=== PATIENT | female | born 1950 | race Hispanic/Latino ===

== ENCOUNTER 2017-11-19 14:57 | Outpatient (RCR) | payer MEDICARE ==
[~2017-11-19 14:57] MED LIST: ASPIRIN325 MG PO; FENOFIBRATE145 MG PO; FOLIC ACID1 MG PO; HYDROCHLOROTHIA25 MG PO; HYDROXYCHLOROQ200 MG PO; LEVOTHYROXINE112 MCG PO; LOSARTAN POTAS100 MG PO; METFORMIN HCL500 MG PO; NORCO 7.5-3251 EACH PO; OMEPRAZOLE40 MG PO; PREDNISONE5 MG PO; SULFASALAZINE500 MG PO
== END 2017-11-27 ==
LOC: PT 14:57
PROVIDERS: ATTEND Specialist
DX: Z96.651 Presence of right artificial knee joint (principal); S72.421D Displaced fracture of lateral condyle of right femur, subsequent encounter for closed fracture with routine healing; M47.816 Spondylosis without myelopathy or radiculopathy, lumbar region; M62.81 Muscle weakness (generalized)
CPT/HCPCS: 97110 ×6; 97139; 97162; G8978; G8979 ×2; G8980

== ENCOUNTER 2018-07-12 14:37 | Emergency (ER) | payer MEDICARE ==
[~2018-07-12] VITALS: Ht 167.6 cm; Wt 90.7 kg
[2018-07-12] MEDS ORDERED: ONDANSETRON HCL INJ 2 MG/ML VIAL IV STA (14:53)
[2018-07-12] MEDS ORDERED: MORPHINE SULFATE 2 MG/ML SYR IV STA (14:53)
[2018-07-12] MEDS ORDERED: SODIUM CHLORIDE 0.9% 1000ML 1,000 ML IV SCH (15:00)
[2018-07-12 15:04] LABS: BASOPHILS % 0.3 % (0.0-1.0); EOSINOPHILS # (AUTO) 0.1 (0.0-0.4); HEMATOCRIT 44.9 % (34.2-44.1); HEMOGLOBIN 14.9 g/dL (12.0-16.0); LYMPHOCYTES # (AUTO) 0.6 (1.0-3.2); LYMPHOCYTES % 4.6 % (18.0-39.1); MEAN CORPUSCULAR HEMOGLOBIN 32.2 pg (28-32); MEAN CORPUSCULAR HGB CONC 33.2 g/dL (31-35); MONOCYTES # (AUTO) 0.7 (0.2-0.8); MONOCYTES % 5.2 % (4.4-11.3); NEUTROPHILS % 88.5 % (38.7-80.0); PLATELET COUNT 195 x10e3/uL (140-360); RED BLOOD COUNT 4.63 x10e6/uL (3.6-5.1); RED CELL DISTRIBUTION WIDTH 14.3 % (11.7-14.4)
[2018-07-12 15:21] LABS: ALBUMIN 3.4 g/dL (3.5-5.0); ALBUMIN/GLOBULIN RATIO 0.9 (0.8-2.0); ANION GAP 19.1 mmol/L (8-16); CALCIUM 9.5 mg/dL (8.4-10.2); CREATININE, SERUM 1.31 mg/dL (0.57-1.11); POTASSIUM 3.1 mmol/L (3.5-5.1)
[2018-07-12] MEDS ORDERED: ACETAMINOPHEN 1000 MG/100 ML IV ONE (15:30)
[2018-07-12 15:41] LABS: BILIRUBIN,URINE NEGATIVE (NEGATIVE); CLARITY,URINE HAZY (CLEAR); COLOR,URINE YELLOW (YELLOW); KETONES,URINE TRACE (NEGATIVE); LEUKOCYTE ESTERASE ,URINE 1+ (NEGATIVE); NITRITE,URINE NEGATIVE (NEGATIVE); PROTEIN,URINE DIPSTICK NEGATIVE (NEGATIVE); URINE UROBILINOGEN 0.2 mg/dL (0.2 - 1)
[2018-07-12 16:00] LABS: EPITHELIAL CELLS,URINE MANY /LPF
[2018-07-12 16:02] LABS: BACTERIA,URINE MANY /HPF; RBC,URINE 0-5 /HPF (0-5); TRANSITIONAL EPI CELLS,URINE MANY; WBC,URINE (MAN) >50 /HPF (0-5)
[2018-07-12] MEDS ORDERED: POTASSIUM CHLORIDE 20 MEQ TAB CR PO STA (16:13)
--- NOTE | 2018-07-12 17:15 | Diagnostic Imaging Report ---
EXAM: CT Abdomen and Pelvis WITHOUT contrast INDICATION: \S\lower abd pain \[id number] \S\1600 COMPARISON: None. TECHNIQUE: Abdomen and pelvis were scanned utilizing a multidetector helical scanner from the lung base to the pubic symphysis without administration of IV contrast. Absence of intravenous contrast decreases sensitivity for detection of focal lesions and vascular pathology. Coronal and sagittal reformations were obtained. Routine protocol was performed. IV CONTRAST: None ORAL CONTRAST: Gastrografin COMPLICATIONS: None RADIATION DOSE: Total DLP: 878.02 mGy*cm Estimated effective dose: (DLP x 0.015 x size factor) mSv CTDIvol has been reviewed. It is below the limits set by the Radiation Protocol Committee (RPC). FINDINGS: LINES and TUBES: None. LOWER THORAX: Dependent atelectasis. Increased peripheral lung markings, suggestive of fibrotic changes. HEPATOBILIARY: Diffuse hepatic steatosis, otherwise unenhanced liver is unremarkable. No biliary ductal dilation. GALLBLADDER: Surgically absent. SPLEEN: No splenomegaly. PANCREAS: Atrophic. No focal masses or ductal dilatation. ADRENALS: No adrenal nodules KIDNEYS/URETERS: No hydronephrosis. Limited for evaluation of renal parenchyma without intravenous contrast. No stones. GI TRACT: No abnormal distention, wall thickening, or evidence of bowel obstruction. There are diverticula within the colon without evidence of diverticulitis. Appendix is normal. PELVIC ORGANS/BLADDER: Unremarkable. LYMPH NODES: No lymphadenopathy. VESSELS: There is mild atherosclerotic disease in the aorta and major arterial branches. PERITONEUM / RETROPERITONEUM: No free air or fluid. BONES: Unremarkable. SOFT TISSUES: Unremarkable. IMPRESSION: 1. No definite evidence of acute inflammatory process in the abdomen/pelvis, considering limitations of unenhanced study. 2. Clonic diverticulosis without evidence of diverticulitis. 3. Diffuse hepatic steatosis. Signed by: Dr. Emeka Cisneros MD on 07/12/2018 5:12 PM
--- OUTSIDE RECORDS SUMMARY | 2018-07-15 13:43 | XMS REPORT | Summary of Care ---
Author Organization Unknown Address Unknown Phone Unavailable Encounter [facility](IZZY) [id number] Date(s): 03/26/14 - 04/24/14 [facility] [address] Discharge Disposition: Home Physician Attending: Soni Mehta MD Reason for Visit INF Vital Signs Most recent to 1 oldest [Reference Range]: Height 165.1 cm (03/26/14 8:20 AM) Weight 72.7 kg (03/26/14 8:20 AM) Body Mass Index 26.67 m2 (03/26/14 8:20 AM) Problem List Condition Effective Dates Status Health Status Informant Arthritis(Confirmed) Resolved Diverticulitis(Confi Resolved rmed) DM (diabetes Active mellitus)(Confirmed) DM (diabetes Resolved mellitus)(Confirmed) Escherichia Active coli(Confirmed)1 H/O: HTN Resolved (hypertension)(Confi rmed) H/O: Resolved hypothyroidism(Confi rmed) RA (rheumatoid Active arthritis)(Confirmed ) 1Problem added by Discern Expert. Allergies, Adverse Reactions, Alerts Substance Reaction Severity Status NKDA Active Medications INVanz + Sodium Chloride 0.9% IV 100 mL 1 gm, Route: IVPB, [id number], Start date: 03/26/14 10:00:00, Duration: 14 day, Sto p date: 04/08/14 10:00:00 Notes: (Same as: INVanz) Refrigerate. NOT COMPATIBLE WITH D5W. Stable in refri gerator for 24 hours. Start Date: 03/26/14 Stop Date: 04/08/14 Status: Pending Complete Medications Administered During Your Visit No data available for this section Immunizations Vaccine Date Refusal Reason pneumococcal 23-valent vaccine 03/17/14 Social History Social History Type Response Smoking Status Current every day smoker, Type: Cigarettes, Previous treatment: None, Ready to change: No, Concerns about tobacco use in household: No, Exposure to Tobacco Smoke Lives with someone who smokes, Cigarette Smoking Last 365 Days Yes, Reg Smoking Cessation Counseling No1 1Quit in January 2014
--- OUTSIDE RECORDS SUMMARY | 2018-07-15 13:43 | XMS REPORT | Summary of Care ---
Author Author [facility] Outpatient Imaging [facility] [place] Address Unknown Phone Unavailable Encounter [facility](FIN) [id number] Date(s): 07/10/17 - 07/10/17 [facility] Outpatient Imaging [facility] [address] [facility], [address] [place] [phone] Discharge Disposition: Home or Self Care Attending Physician: Chen Yuan MD Vital Signs No data available for this section Problem List Condition Effective Dates Status Health Status Informant Arthritis(Confirmed) Resolved Diverticulitis(Confi Resolved rmed) DM (diabetes Active mellitus)(Confirmed) DM (diabetes Resolved mellitus)(Confirmed) Escherichia Active coli(Confirmed)1 H/O: HTN Resolved (hypertension)(Confi rmed) H/O: Resolved hypothyroidism(Confi rmed) Pulmonary 09/19/14 Active embolism(Confirmed) RA (rheumatoid Active arthritis)(Confirmed ) 1Problem added by Discern Expert. Allergies, Adverse Reactions, Alerts Substance Reaction Severity Status penicillins Active Medications No data available for this section Results No data available for this section Immunizations Given and Recorded Vaccine Date Status Refusal Reason pneumococcal 23-valent vaccine 03/17/14 Given Procedures Procedure Date Related Diagnosis Body Site Cholecystectomy Social History Social History Type Response Smoking Status Former smoker; Type: Cigarettes; Started at age: 29.0; Previous treatment: None; Ready to change: No; Concerns about tobacco use in household: No; Exposure to Tobacco Smoke None; Cigarette Smoking Last 365 Days Yes; Reg Smoking Cessation Counseling No1, 2 1quit smoking 6 months ago 2Quit in January 2014 Assessment and Plan No data available for this section
--- OUTSIDE RECORDS SUMMARY | 2018-07-15 13:43 | XMS REPORT | Summary of Care ---
Author Organization Unknown Address Unknown Phone Unavailable Encounter [facility](IZZY) [id number] Date(s): 03/15/14 - 03/25/14 [facility] [address] Discharge Disposition: Home Physician Attending: Will Carver DO Physician Admitting: Will Carver DO Reason for Visit INTRA ABDOMINAL PAIN INFECTION Vital Signs 1 2 3 Most recent to oldest [Reference Range]: 165.1 cm (03/16/14 8:32 PM) 165.1 cm (03/15/14 3:11 PM) Height 97.9 DegF (03/25/14 12:03 PM) 98.4 DegF (03/25/14 7:53 AM) 98.7 DegF (03/25/14 4:23 AM) Temperature Oral [96.4-99.1 DegF] 121 mmHg (03/25/14 12:03 PM) 131 mmHg (03/25/14 7:53 AM) 133 mmHg (03/25/14 4:23 AM) Systolic Blood Pressure [90-140 mmHg] 70 mmHg (03/25/14 12:03 PM) 89 mmHg (03/25/14 7:53 AM) 72 mmHg (03/25/14 4:23 AM) Diastolic Blood Pressure [60-90 mmHg] 14 BRMIN (03/25/14 12:03 PM) 14 BRMIN (03/25/14 7:53 AM) 14 BRMIN (03/25/14 4:23 AM) Respiratory Rate [14-20 BRMIN] 89 bpm (03/25/14 12:03 PM) 86 bpm (03/25/14 7:53 AM) 96 bpm (03/25/14 4:23 AM) Peripheral Pulse Rate [60-100 bpm] 72.727 kg (03/16/14 8:32 PM) 72.727 kg (03/15/14 3:11 PM) Weight 26.68 m2 (03/16/14 8:32 PM) 26.68 m2 (03/15/14 3:11 PM) Body Mass Index Problem List Condition Effective Dates Status Health Status Informant Arthritis(Confirmed) Resolved Diverticulitis(Confi Resolved rmed) DM (diabetes Active mellitus)(Confirmed) DM (diabetes Resolved mellitus)(Confirmed) Escherichia Active coli(Confirmed)1 H/O: HTN Resolved (hypertension)(Confi rmed) H/O: Resolved hypothyroidism(Confi rmed) RA (rheumatoid Active arthritis)(Confirmed ) 1Problem added by Discern Expert. Allergies, Adverse Reactions, Alerts Substance Reaction Severity Status NKDA Active Medications 1/2NS + KCL 20mEq/L 1000ml (Premix) 1,000 mL 1,000 mL, Rate: 125 ml/hr, Infuse over: 8 hr, Route: IV, Dosing Weight 72.727 kg , Total Volume: 1,000, Start date: 03/16/14 4:14:00, Duration: 30 day, Stop date : 04/15/14 4:13:00 Start Date: 03/16/14 Stop Date: 03/24/14 Status: Discontinued acetaminophen 650 mg, 20.3 mL, Route: PO, Drug form: LIQ, Q4H, Dosing Weight 72.727, kg, PRN P ain 1-3/Temp > 100.4 F, Start date: 03/16/14 4:14:00, Duration: 30 day, Stop date: 04/15/14 4:13:00 Notes: Max fmvemmqvthkly=7719aa/day (4 gm/day). (Same as: Tylenol) Start Date: 03/16/14 Stop Date: 03/25/14 Status: Discontinued ampicillin 1 gm, 2 cap, Route: PO, Drug form: CAP, TID, Dosing Weight 72.727, kg, Start clemente e: 03/25/14 17:00:00, Duration: 30 day, Stop date: 04/24/14 13:00:00 Notes: On empty stomach. Take 1 hour before or 2 hours after meal(Same as: Mason fagan) Start Date: 03/25/14 Stop Date: 03/25/14 Status: Discontinued ampicillin 500 mg oral capsule =1,000 mg, PO, TID, # 42 caplet, 0 Refill(s) Start Date: 03/25/14 Status: Ordered Cipro 500 mg, 1 tab, Route: PO, Drug form: TAB, [id number], Dosing Weight 72.727, kg, Sta rt date: 03/16/14 17:00:00, Duration: 30 day, Stop date: 04/15/14 5:00:00 Notes: May interfere w/enteral feedings - Take 1 hr before or 2 hrs after anta cids, dairy pdt & minerals. On empty stomach. Start Date: 03/16/14 Stop Date: 03/20/14 Status: Discontinued enalapril 10 mg, 1 tab, Route: PO, Drug form: TAB, Daily, Dosing Weight 72.727, kg, Start date: 03/17/14 9:00:00, Duration: 30 day, Stop date: 04/15/14 9:00:00 Notes: (Same as: Vasotec) Start Date: 03/17/14 Stop Date: 03/25/14 Status: Discontinued enoxaparin 40 mg, 0.4 mL, Route: SUB-Q, Drug form: INJ, [id number], Dosing Weight 72.727, kg, Start date: 03/16/14 17:00:00, Duration: 30 day, Stop date: 04/14/14 17:00:00 Notes: (Same as: Lovenox) Start Date: 03/16/14 Stop Date: 03/25/14 Status: Discontinued ertapenem 1 g injection =1 gm, IV, Q24H, # 14 bag, 0 Refill(s) Start Date: 03/25/14 Status: Ordered Flagyl 500 mg, 100 mL, Route: IVPB, Drug form: INJ, [id number], Dosing Weight 72.727, kg, Priority: STAT, Start date: 03/16/14 4:14:00, Duration: 30 day, Stop date: 04/14 15:00:00 Notes: (Same as: Flagyl) Avoid alcohol. Start Date: 03/16/14 Stop Date: 03/16/14 Status: Discontinued Flagyl 500 mg, Route: IVPB, ONCE, Dosing Weight 72.727, kg, Priority: STAT, Start date: 03/16/14 2:03:00, Stop date: 03/16/14 2:03:00 Start Date: 03/16/14 Stop Date: 03/16/14 Status: Completed Flagyl 500 mg, 1 tab, Route: PO, Drug form: TAB, [id number], Dosing Weight 72.727, kg, Star t date: 03/16/14 17:00:00, Duration: 30 day, Stop date: 04/15/14 9:00:00 Notes: (Same as: Flagyl) Take with food/ avoid alcohol Start Date: 03/16/14 Stop Date: 03/20/14 Status: Discontinued folic acid 1 mg, 1 tab, Route: PO, Drug form: TAB, Daily, Dosing Weight 72.727, kg, Start d ate: 03/17/14 9:00:00, Duration: 30 day, Stop date: 04/15/14 9:00:00 Notes: (Same as: Folvite) Start Date: 03/17/14 Stop Date: 03/25/14 Status: Discontinued Humalog Kwik Pen 32 unit, Route: SUB-Q, BID, Dosing Weight 72.727, kg, Start date: 03/16/14 17:00 :00, Duration: 30 day, Stop date: 04/15/14 9:00:00 Start Date: 03/16/14 Stop Date: 03/16/14 Status: Deleted hydrochlorothiazide 25 mg, 1 tab, Route: PO, Drug form: TAB, Daily, Dosing Weight 72.727, kg, Start date: 03/17/14 9:00:00, Duration: 30 day, Stop date: 04/15/14 9:00:00 Notes: (Same as: Hydrodiuril) With food. Start Date: 03/17/14 Stop Date: 03/25/14 Status: Discontinued isoniazid 300 mg, 1 tab, Route: PO, Drug form: TAB, Daily, Dosing Weight 72.727, kg, Start date: 03/17/14 9:00:00, Duration: 30 day, Stop date: 04/15/14 9:00:00 Notes: (Same as:INH 1 hr prior to meal. Start Date: 03/17/14 Stop Date: 03/25/14 Status: Discontinued isoniazid 100 mg oral tablet 300 mg=3 tab, PO, Daily, # 20 tab, 0 Refill(s) Start Date: 03/16/14 Status: Ordered Lantus 70 unit, Route: SUB-Q, Drug form: SOLN, Bedtime, Dosing Weight 72.727, kg, Start date: 03/16/14 21:00:00, Duration: 30 day, Stop date: 04/14/14 21:00:00 Start Date: 03/16/14 Stop Date: 03/16/14 Status: Deleted Lantus 100 units/mL =90 unit, SUB-Q, Bedtime, # 10 ml, 0 Refill(s) Start Date: 03/16/14 Status: Ordered Levaquin 500 mg, 100 mL, Route: IVPB, Drug form: INJ, [id number], Dosing Weight 72.727, kg, Start date: 03/17/14 5:00:00, Duration: 30 day, Stop date: 04/15/14 5:00:00 Notes: (Same as:Levaquin) Start Date: 03/17/14 Stop Date: 03/20/14 Status: Discontinued Levaquin 500 mg, 100 mL, Route: IV, Drug form: INJ, ONCE, Dosing Weight 72.727, kg, Start date: 03/16/14 2:03:00, Stop date: 03/16/14 2:03:00 Notes: (Same as:Levaquin) Start Date: 03/16/14 Stop Date: 03/16/14 Status: Completed Levemir FlexPen 70 unit, 0.7 mL, Route: SUB-Q, Drug form: INJ, Bedtime, Start date: 03/16/14 21: 00:00, Duration: 30 day, Stop date: 04/14/14 21:00:00 Notes: Same as Levemir "single patient use only" Start Date: 03/16/14 Stop Date: 03/25/14 Status: Discontinued levothyroxine 100 microgram, 1 tab, Route: PO, Drug form: TAB, [id number], Dosing Weight 72.727, k g, Start date: 03/17/14 6:30:00, Duration: 30 day, Stop date: 04/15/14 6:30:00 Notes: Take 1 hour before or 2 hours after meal; Enteral feeds may interefere wi th the absorption of this medication. (Same as:Levothroid, Synthroid) Start Date: 03/17/14 Stop Date: 03/25/14 Status: Discontinued losartan 25 mg, 1 tab, Route: PO, Drug form: TAB, Daily, Dosing Weight 72.727, kg, Start date: 03/17/14 9:00:00, Duration: 30 day, Stop date: 04/15/14 9:00:00 Notes: (Same as: Cozaar) Start Date: 03/17/14 Stop Date: 03/25/14 Status: Discontinued meropenem + Sodium Chloride 0.9% IV 100 mL 500 mg, Route: IVPB, [id number], Dosing Weight 72.727, kg, CrCL >=50ml/min, Extended infusion, infuse over 3 hours, Start date: 03/20/14 19:00:00, Duration: 30 day, Stop date: 04/19/14 13:00:00 Notes: Same as Merrem.. Start Date: 03/20/14 Stop Date: 03/25/14 Status: Discontinued methotrexate 20 mg, 8 tab, Route: PO, Drug form: TAB, QSun, Dosing Weight 72.727, kg, Start d ate: 03/21/14 9:00:00, Duration: 30 day, Stop date: 04/18/14 9:00:00 Notes: (Same as:Methotrexate Sodium)Chemotherapy agent/Handle with caution Start Date: 03/21/14 Stop Date: 03/25/14 Status: Discontinued morphine Sulfate 4 mg, 2 mL, Route: IVP, Drug form: INJ, Q4H, Dosing Weight 72.727, kg, PRN Pain Score 4-6, Start date: 03/16/14 4:14:00, Stop date: 04/15/14 4:13:00 Notes: (Same as:MORPhine Sulfate) Start Date: 03/16/14 Stop Date: 03/25/14 Status: Discontinued morphine Sulfate 4 mg, 2 mL, Route: IVP, Drug form: INJ, ONCE, Dosing Weight 72.727, kg, Priority : STAT, Start date: 03/15/14 23:32:00, Stop date: 03/15/14 23:32:00 Notes: (Same as:MORPhine Sulfate) Start Date: 03/15/14 Stop Date: 03/16/14 Status: Completed Coalgood 5/325 oral tablet 1 tab, Route: PO, Drug Form: TAB, Dosing Weight 72.727, kg, Q6H, PRN Pain Score 6-10, Start date: 03/16/14 16:36:00, Duration: 30 day, Stop date: 04/15/14 16:35 :00 Notes: (Same as: Coalgood 325/5) Do not exceed 4gm/day of acetaminophen. Start Date: 03/16/14 Stop Date: 03/25/14 Status: Discontinued Coalgood 5/325 oral tablet 1 tab, PO, Q6H, Pain Score 6-10, 0 Refill(s) Start Date: 03/16/14 Status: Ordered NovoLOG FlexPen 32 unit, 0.32 mL, Route: SUB-Q, Drug form: SOLN, BID, Start date: 03/16/14 17:00 :00, Duration: 30 day, Stop date: 04/15/14 9:00:00 Notes: Roll in palms of hands gently; Do not shake vigorously. (Same as: Yesika G)"single patient use only" Stable for 28 days at room temperature.Expires in _ ____ days from Date Start Date: 03/16/14 Stop Date: 03/25/14 Status: Discontinued omeprazole 40 mg, Route: PO, Drug form: DRC, BID, Dosing Weight 72.727, kg, Start date: 17:00:00, Duration: 30 day, Stop date: 04/15/14 9:00:00 Start Date: 03/16/14 Stop Date: 03/16/14 Status: Deleted ondansetron 4 mg, 2 mL, Route: IVP, Drug form: INJ, Q8H, Dosing Weight 72.727, kg, PRN Nause a & Vomiting, Start date: 03/16/14 4:14:00, Duration: 30 day, Stop date: 04/15/14 4:13:00 Notes: (Same as: Zofran) Start Date: 03/16/14 Stop Date: 03/25/14 Status: Discontinued pneumococcal 23-valent vaccine 0.5 ml, Route: IM, Drug Form: INJ, Daily, Start date: 03/17/14 9:00:00, Duration : 1 doses or times, Stop date: 03/17/14 9:00:00 Notes: (Same as: Pneumovax 23) Refrigerate Start Date: 03/17/14 Stop Date: 03/17/14 Status: Completed Protonix 40 mg, 1 tab, Route: PO, Drug form: ECTAB, BID, Start date: 03/16/14 17:00:00, D uration: 30 day, Stop date: 04/15/14 9:00:00 Notes: Tablet should not be chewed or crushed.(Same as: Protonix) Start Date: 03/16/14 Stop Date: 03/25/14 Status: Discontinued Saline Flush 0.9% 5 ml, Route: IVP, Drug Form: INJ, Dosing Weight 72.727, kg, PRN, PRN Line Flush, Start date: 03/16/14 4:14:00, Duration: 30 day, Stop date: 04/15/14 4:13:00 Notes: (Same as: BD Posiflush) Start Date: 03/16/14 Stop Date: 03/25/14 Status: Discontinued Sodium Chloride 0.9% (Bolus) IV - - 1,000 mL, 1,000 ml/hr, Infuse Over: 1 hr, Route: IV, 1,000, Drug form: INJ, ONCE , Priority: STAT, Dosing Weight 72.727 kg, Start date: 03/15/14 23:33:00, Durati on: 1 doses or times, Stop date: 03/15/14 23:33:00 Start Date: 03/15/14 Stop Date: 03/16/14 Status: Completed tramadol 50 mg oral tablet 50 mg, 1 tab, Route: PO, Drug form: TAB, Q8H, Dosing Weight 72.727, kg, PRN Pain Score 1-5, Start date: 03/16/14 16:38:00, Duration: 30 day, Stop date: 04/15/14 16:37:00 Notes: Not to exceed 400mg/day. (Same As: Ultram) Start Date: 03/16/14 Stop Date: 03/25/14 Status: Discontinued TriCor 145 mg, 1 tab, Route: PO, Drug form: TAB, Daily, Dosing Weight 72.727, kg, Start date: 03/17/14 9:00:00, Duration: 30 day, Stop date: 04/15/14 9:00:00 Notes: (Same as: Tricor) Start Date: 03/17/14 Stop Date: 03/25/14 Status: Discontinued Tylenol 1 gm, 100 mL, Route: IV, Drug form: INJ, PRN, Dosing Weight 72.727, kg, PRN Pain , Start date: 03/19/14 9:21:00, Duration: 1 day, Stop date: 03/20/14 9:20:00 Notes: Infuse over 15 minutes Do not exceed 4gm/day of acetaminophen Start Date: 03/19/14 Stop Date: 03/20/14 Status: Completed vancomycin + Sodium Chloride 0.9% IV 150 mL 750 mg, Route: IVPB, [id number], Dosing Weight 72.727, kg, Start date: 03/24/14 16: 00:00, Duration: 10 day, Stop date: 04/03/14 4:00:00 Notes: (Same As: Vancocin) Start Date: 03/24/14 Stop Date: 03/25/14 Status: Discontinued Vitamin B6 25 mg, 0.5 tab, Route: PO, Drug form: TAB, Daily, Dosing Weight 72.727, kg, Star t date: 03/17/14 9:00:00, Duration: 30 day, Stop date: 04/15/14 9:00:00 Notes: (Same as: Vitamin B6) Start Date: 03/17/14 Stop Date: 03/25/14 Status: Discontinued Zofran 4 mg, 2 mL, Route: IVP, Drug form: INJ, ONCE, Dosing Weight 72.727, kg, Priority : STAT, Start date: 03/15/14 23:32:00, Stop date: 03/15/14 23:32:00 Notes: (Same as: Zofran) Start Date: 03/15/14 Stop Date: 03/16/14 Status: Completed Results ELECTROLYTES 1 2 3 Most recent to oldest [Reference Range]: 141 mEq/L (03/24/14 4:00 AM) 140 mEq/L (03/23/14 5:11 AM) 139 mEq/L (03/21/14 6:42 AM) Sodium Lvl [135-145 mEq/L] 4.0 mEq/L (03/24/14 4:00 AM) 3.6 mEq/L (03/23/14 5:11 AM) 3.9 mEq/L (03/21/14 6:42 AM) Potassium Lvl [3.5-5.1 mEq/L] 109 mEq/L (03/24/14 4:00 AM) 107 mEq/L (03/23/14 5:11 AM) 106 mEq/L (03/21/14 6:42 AM) Chloride Lvl [95-109 mEq/L] 26 mEq/L (03/24/14 4:00 AM) 26 mEq/L (03/23/14 5:11 AM) 22 mEq/L *LOW* (03/21/14 6:42 AM) CO2 [24-32 mEq/L] 10.0 mEq/L (03/24/14 4:00 AM) 10.6 mEq/L (03/23/14 5:11 AM) 14.9 mEq/L (03/21/14 6:42 AM) AGAP [10.0-20.0 mEq/L] CHEM PANEL 1 2 3 Most recent to oldest [Reference Range]: 0.6 mg/dL (03/24/14 4:00 AM) 0.8 mg/dL (03/23/14 5:11 AM) 0.8 mg/dL (03/21/14 6:42 AM) Creatinine Lvl [0.5-1.4 mg/dL] 97 mL/min/1.73m2 1 *NA* (03/24/14 4:00 AM) 78 mL/min/1.73m2 2 *NA* (03/23/14 5:11 AM) 78 mL/min/1.73m2 3 *NA* (03/21/14 6:42 AM) eGFR 8 mg/dL (03/24/14 4:00 AM) 8 mg/dL (03/23/14 5:11 AM) 5 mg/dL *LOW* (03/21/14 6:42 AM) BUN [7-22 mg/dL] 6 (03/21/14 6:42 AM) 10 (03/15/14 11:55 PM) B/C Ratio [6-25] 177 mg/dL 4 *HI* (03/24/14 4:00 AM) 166 mg/dL 5 *HI* (03/23/14 5:11 AM) 174 mg/dL 6 *HI* (03/21/14 6:42 AM) Glucose Lvl [70-99 mg/dL] 6.2 g/dL *LOW* (03/21/14 6:42 AM) 7.4 g/dL (03/15/14 11:55 PM) Total Protein [6.4-8.4 g/dL] 2.0 g/dL *LOW* (03/21/14 6:42 AM) 2.5 g/dL *LOW* (03/15/14 11:55 PM) Albumin Lvl [3.5-5.0 g/dL] 4.2 g/dL *HI* (03/21/14 6:42 AM) 4.9 g/dL *HI* (03/15/14 11:55 PM) Globulin [2.0-4.0 g/dL] 0.5 *LOW* (03/21/14 6:42 AM) 0.5 *LOW* (03/15/14 11:55 PM) A/G Ratio [0.7-1.6] 8.0 mg/dL *LOW* (03/24/14 4:00 AM) 8.2 mg/dL *LOW* (03/23/14 5:11 AM) 8.4 mg/dL *LOW* (03/21/14 6:42 AM) Calcium Lvl [8.5-10.5 mg/dL] 1.8 mg/dL *LOW* (03/17/14 4:03 AM) Phosphorus [2.5-4.5 mg/dL] 1.5 mg/dL *LOW* (03/17/14 4:03 AM) 1.4 mg/dL *LOW* (03/15/14 11:55 PM) Magnesium Lvl [1.8-2.4 mg/dL] 9 unit/L (03/21/14 6:42 AM) 15 unit/L (03/15/14 11:55 PM) ALT [0-65 unit/L] 13 unit/L (03/21/14 6:42 AM) 10 unit/L (03/15/14 11:55 PM) AST [0-37 unit/L] 70 unit/L (03/21/14 6:42 AM) 72 unit/L (03/15/14 11:55 PM) Alk Phos [39-136 unit/L] 0.4 mg/dL (03/21/14 6:42 AM) 0.4 mg/dL (03/15/14 11:55 PM) Bili Total [0.2-1.3 mg/dL] 23 unit/L *LOW* (03/15/14 11:55 PM) Amylase Lvl [25-115 unit/L] 156 unit/L (03/15/14 11:55 PM) Lipase Lvl [73-393 unit/L] 1Result Comment: The eGFR is calculated using the CKD-EPI formula. In most young, healthy individuals the eGFR will be >90 mL/min/1.73m2. The eGFR declines with age. An eGFR of 60-89 may be normal in some populations, particularly the elderly, for whom the CKD-EPI formula has not been extensively validated. Use of the eGFR is not recommended in the following populations: Individuals with unstable creatinine concentrations, including patients and those with serious co-morbid conditions. Patients with extremes in muscle mass or diet. The data above are obtained from the National Kidney Disease Education Program ( NKDEP) which additionally recommends that when the eGFR is used in patients with extremes of body mass index for purposes of drug dosing, the eGFR should be mul tiplied by the estimated BMI. 2Result Comment: The eGFR is calculated using the CKD-EPI formula. In most young, healthy individuals the eGFR will be >90 mL/min/1.73m2. The eGFR declines with age. An eGFR of 60-89 may be normal in some populations, particularly the elderly, for whom the CKD-EPI formula has not been extensively validated. Use of the eGFR is not recommended in the following populations: Individuals with unstable creatinine concentrations, including patients and those with serious co-morbid conditions. Patients with extremes in muscle mass or diet. The data above are obtained from the National Kidney Disease Education Program ( NKDEP) which additionally recommends that when the eGFR is used in patients with extremes of body mass index for purposes of drug dosing, the eGFR should be mul tiplied by the estimated BMI. 3Result Comment: The eGFR is calculated using the CKD-EPI formula. In most young, healthy individuals the eGFR will be >90 mL/min/1.73m2. The eGFR declines with age. An eGFR of 60-89 may be normal in some populations, particularly the elderly, for whom the CKD-EPI formula has not been extensively validated. Use of the eGFR is not recommended in the following populations: Individuals with unstable creatinine concentrations, including patients and those with serious co-morbid conditions. Patients with extremes in muscle mass or diet. The data above are obtained from the National Kidney Disease Education Program ( NKDEP) which additionally recommends that when the eGFR is used in patients with extremes of body mass index for purposes of drug dosing, the eGFR should be mul tiplied by the estimated BMI. 4Interpretive Data: Adult reference range values reflect the clinical guidelines of the [place] [employer]. 5Interpretive Data: Adult reference range values reflect the clinical guidelines of the [place] [employer]. 6Interpretive Data: Adult reference range values reflect the clinical guidelines of the [place] [employer]. CARDIAC ENZYMES 1 2 3 Most recent to oldest [Reference Range]: 25 unit/L (03/15/14 11:55 PM) Total CK [12-191 unit/L] 0.7 ng/mL (03/15/14 11:55 PM) CK MB [0.5-3.6 ng/mL] 2.8 *HI* (03/15/14 11:55 PM) CK MB Index [0.0-2.5] <0.02 ng/mL (03/15/14 11:55 PM) Troponin-I [0.00-0.40 ng/mL] URINE AND STOOL 1 2 3 Most recent to oldest [Reference Range]: Clear (03/15/14 12:51 AM) UA Turbidity [Clear] Yellow *NA* (03/15/14 12:51 AM) UA Color [Yellow] 6.0 (03/15/14 12:51 AM) UA pH [5.0-8.0] 1.025 (03/15/14 12:51 AM) UA Spec Grav [<=1.030] >=1000 mg/dL *ABN* (03/15/14 12:51 AM) UA Glucose [Negative mg/dL] Negative (03/15/14 12:51 AM) UA Blood [Negative] Negative *NA* (03/15/14 12:51 AM) UA Ketones [Negative] Negative (03/15/14 12:51 AM) UA Protein [Negative] 0.2 EU/dL (03/15/14 12:51 AM) UA Urobilinogen [0.1-1.0 EU/dL] Small *ABN* (03/15/14 12:51 AM) UA Bili [Negative] Negative (03/15/14 12:51 AM) UA Leuk Est [Negative] Negative (03/15/14 12:51 AM) UA Nitrite [Negative] 12 /HPF *HI* (03/15/14 12:51 AM) UA WBC [0-5 /HPF] 5 /HPF *HI* (03/15/14 12:51 AM) UA RBC [0-2 /HPF] Occasional /HPF *NA* (03/15/14 12:51 AM) UA Bacteria [None Seen /HPF] Many /LPF *ABN* (03/15/14 12:51 AM) UA Sq Epi [Few /LPF] 12 /LPF *HI* (03/15/14 12:51 AM) UA Hyal Cast [0-2 /LPF] Few /LPF *NA* (03/15/14 12:51 AM) UA Mucus [None Seen /LPF] HEMATOLOGY 1 2 3 Most recent to oldest [Reference Range]: 10.1 K/CMM (03/24/14 4:00 AM) 10.9 K/CMM *HI* (03/23/14 5:11 AM) 13.1 K/CMM *HI* (03/21/14 6:42 AM) WBC [3.7-10.4 K/CMM] 3.68 M/CMM *LOW* (03/24/14 4:00 AM) 3.50 M/CMM *LOW* (03/23/14 5:11 AM) 3.69 M/CMM *LOW* (03/21/14 6:42 AM) RBC [4.20-5.40 M/CMM] 11.0 g/dL *LOW* (03/24/14 4:00 AM) 10.4 g/dL *LOW* (03/23/14 5:11 AM) 11.0 g/dL *LOW* (03/21/14 6:42 AM) Hgb [12.0-16.0 g/dL] 32.8 % *LOW* (03/24/14 4:00 AM) 31.3 % *LOW* (03/23/14 5:11 AM) 32.8 % *LOW* (03/21/14 6:42 AM) Hct [36.0-48.0 %] 89.3 fL (03/24/14 4:00 AM) 89.5 fL (03/23/14 5:11 AM) 88.7 fL (03/21/14 6:42 AM) MCV [81.0-99.0 fL] 29.9 pg (03/24/14 4:00 AM) 29.7 pg (03/23/14 5:11 AM) 29.7 pg (03/21/14 6:42 AM) MCH [27.0-31.0 pg] 33.5 g/dL (03/24/14 4:00 AM) 33.2 g/dL (03/23/14 5:11 AM) 33.5 g/dL (03/21/14 6:42 AM) MCHC [32.0-36.0 g/dL] 15.2 % *HI* (03/24/14 4:00 AM) 15.6 % *HI* (03/23/14 5:11 AM) 15.2 % *HI* (03/21/14 6:42 AM) RDW [11.5-14.5 %] 376 K/CMM (03/24/14 4:00 AM) 379 K/CMM (03/23/14 5:11 AM) 434 K/CMM (03/21/14 6:42 AM) Platelet [133-450 K/CMM] 7.2 fL *LOW* (03/24/14 4:00 AM) 6.9 fL *LOW* (03/23/14 5:11 AM) 6.8 fL *LOW* (03/21/14 6:42 AM) MPV [7.4-10.4 fL] 77.7 % *HI* (03/24/14 4:00 AM) 81.6 % *HI* (03/23/14 5:11 AM) 81.0 % *HI* (03/21/14 6:42 AM) Segs [45.0-75.0 %] 14.3 % *LOW* (03/24/14 4:00 AM) 11.4 % *LOW* (03/23/14 5:11 AM) 10.6 % *LOW* (03/21/14 6:42 AM) Lymphocytes [20.0-40.0 %] 2.2 % (03/24/14 4:00 AM) 1.5 % *LOW* (03/23/14 5:11 AM) 4.4 % (03/21/14 6:42 AM) Monocytes [2.0-12.0 %] 5.4 % *HI* (03/24/14 4:00 AM) 4.6 % *HI* (03/23/14 5:11 AM) 3.5 % (03/21/14 6:42 AM) Eosinophils [0.0-4.0 %] 0.4 % (03/24/14 4:00 AM) 0.9 % (03/23/14 5:11 AM) 0.5 % (03/21/14 6:42 AM) Basophils [0.0-1.0 %] 7.9 K/CMM (03/24/14 4:00 AM) 8.9 K/CMM *HI* (03/23/14 5:11 AM) 10.6 K/CMM *HI* (03/21/14 6:42 AM) Segs-Bands # [1.5-8.1 K/CMM] 1.4 K/CMM (03/24/14 4:00 AM) 1.2 K/CMM (03/23/14 5:11 AM) 1.4 K/CMM (03/21/14 6:42 AM) Lymphocytes # [1.0-5.5 K/CMM] 0.2 K/CMM (03/24/14 4:00 AM) 0.2 K/CMM (03/23/14 5:11 AM) 0.6 K/CMM (03/21/14 6:42 AM) Monocytes # [0.0-0.8 K/CMM] 0.5 K/CMM (03/24/14 4:00 AM) 0.5 K/CMM (03/23/14 5:11 AM) 0.5 K/CMM (03/21/14 6:42 AM) Eosinophils # [0.0-0.5 K/CMM] 0.1 K/CMM (03/23/14 5:11 AM) 0.1 K/CMM (03/21/14 6:42 AM) 0.1 K/CMM (03/19/14 6:19 AM) Basophils # [0.0-0.2 K/CMM] Normal (03/21/14 6:42 AM) Normal (03/15/14 11:55 PM) RBC Morph Normal (03/21/14 6:42 AM) Normal (03/15/14 11:55 PM) Plt Morph 30.4 seconds 7 (03/16/14 8:26 PM) PTT [22.9-35.8 seconds] 7Interpretive Data: Heparin Therapeutic Range: 57 - 92 Seconds Medications Administered During Your Visit No data [...] Cessation Counseling No1 1Quit in January 2014 Assessment and Plan Extracted from: Title: Clinical Document Author: Garcia García MD Date: 03/25/14 Surgery Progress Note Attending: Will Carverhone: Service: Internal Medicine Code status: Full Code [Ordered] Reason for Admission: INTRA ABDOMINAL PAIN INFECTION Working DRG: Esophagitis, gastroent & misc digest disorders w/o LONGTERM Isolation: Contact [Ordered] Consulting Physicians: Kaelyn Goins MDOffice: MSO: [id number]: General Medicine, Medicine Darian Chavis MDOffice: MSO: [id number]: Infectious Disease Soni Mehta MDOffice: MSO: [id number]: Infectious Disease Raquel Garcia Obandoh MDOffice: MSO: [id number]: General Surgery Brian Brannon MDOffice: MSO: [id number]: Medicine SUBJECTIVE: Doing OK. Tolerating diet. minimal abdominal complaints. Again mainly complaints of arthritic pain in knees and now in shoulders. Able to ambulate. OBJECTIVE & EXAM: General: AAOx3 HEENT: AT, NC, PERRLA, no scleral icterus CARDIAC: rrr PULM: CTA B, equal excursion B ABD: soft ND, TTP epigastric and LLQ - improved, no R/G, no organomegaly EXT: no E/C/C, 2+ pulses in all 4 ext NEURO: grossly intact, CN 2-12 intact ASSESSMENT: This is a 63-year-old lady with: 1. Retroperitoneal abscess. 2. Previous history of perforated duodenal ulcer. 3. Leukocytosis. 4. Abdominal pain. 5. Rheumatoid arthritis, on chronic immunosuppression. 6. Hypertension. 7. Diabetes. PLAN: 1. IV ABx as outpatient per ID 2. Continue pain control without use of steroids or NSAIDs 3. FU with me 2 weeks post DC. 4. Again will benefit from GI eval as outpatient for EGD to eval ulcer disease as she did have a ulcer perf tot eh 3rd part of duodenum 5. OK to DC home once cleared by medicine Vitals and Temp: VitalsTmp(F)[id number] 03/25 07:[id number]------ 03/25 04:[id number]/7214------ 03/25 00:[id number]/6914------ 03/24 19:[id number]/7314------ 03/24 15:5298.216358/7720------ 24 Hr Tmax: 100.0F (37.78c) at 03/25 00:21Vital Signs are the last 5 in the past 48 hours. Labs (Last four charted values) WBC 10.1(MAR 24)H 10.9(MAR 23)H 13.1(CATHY 22)H 11.8(CATHY 20) Hgb L 11.0(CATHY 25)L 10.4(CATHY 24)L 11.0(CATHY 22)L 11.2(CATHY 20) Hct L 32.8(CATHY 25)L 31.3(CATHY 24)L 32.8(CATHY 22)L 34.4(CATHY 20) Plt 376(CATHY 25)379(CATHY 24)434(CATHY 22)429(CATHY 20) Na 141(CATHY 25)140(CATHY 24)139(CATHY 22)141(CATHY 20) K 4.0(CATHY 25)3.6(CATHY 24)3.9(CATHY 22)3.9(CATHY 20) CO2 26(CATHY 25)26(CATHY 24)L 22(CATHY 22)24(CATHY 20) Cl 109(CATHY 25)107(CATHY 24)106(CATHY 22)109(CATHY 20) Cr 0.6(CATHY 25)0.8(CATHY 24)0.8(CATHY 22)0.6(CATHY 20) BUN 8(CATHY 25)8(CATHY 24)L 5(CATHY 22)L 5(CATHY 20) Glucose Random H 177(CATHY 25)H 166(CATHY 24)H 174(CATHY 22)H 191(CATHY 20) Mg L 1.5(CATHY 18)L 1.4(CATHY 16) Phos L 1.8(CATHY 18) Ca L 8.0(CATHY 25)L 8.2(CATHY 24)L 8.4(CATHY 22)9.2(CATHY 20) PTT 30.4(FEB 17) Troponin <0.02(FEB 16) CK MB 0.7(FEB 16) Total CK 25(MAR 15) Scheduled Meds (15): 03/17/14 enalapril 10 mg PO Daily 03/16/14 enoxaparin 40 mg SUB-Q [id number] 03/17/14 fenofibrate (TriCor) 145 mg PO Daily 03/17/14 folic acid 1 mg PO Daily 03/17/14 hydrochlorothiazide 25 mg PO Daily 03/16/14 insulin aspart (NovoLOG FlexPen) 32 unit SUB-Q BID 03/16/14 insulin detemir (Levemir FlexPen) 70 unit SUB-Q Bedtime 03/17/14 isoniazid 300 mg PO Daily 03/17/14 levothyroxine 100 microgram PO [id number] 03/17/14 losartan 25 mg PO Daily 03/20/14 meropenem + Sodium Chloride 0.9% IV 100 mL 500 mg IVPB [id number] 33.33 ml/hr 03/21/14 methotrexate 20 mg PO QSun 03/16/14 pantoprazole (Protonix) 40 mg PO BID 03/17/14 pyridoxine (Vitamin B6) 25 mg PO Daily 03/24/14 vancomycin + Sodium Chloride 0.9% IV 150 mL 750 mg IVPB [id number] 150 ml/hr
--- OUTSIDE RECORDS SUMMARY | 2018-07-15 13:43 | XMS REPORT | Continuity of Care Document ---
Author Author [facility] Interface Address Unknown Phone Unavailable Problems Problem Status Onset Date Classification Date Reported Comments Source Asymptomatic menopausal state 10/22/2017 01/24/2018 [facility] [place] R05, Z51.81, J84.9, M05.79 W/DLCO AN Active 10/17/2017 [facility] KNEE INJURY Active 05/29/2016 [facility] Discharge Diagnosis: Contusion of knee 05/29/2016 06/01/2016 [facility] Discharge Diagnosis: Right wrist sprain 05/29/2016 06/01/2016 [facility] Pulmonary embolism Active 09/19/2014 Problem 01/24/2018 [place] [place] PERCARIDAL EFFUSION Active 09/19/2014 [facility] CHEST PAIN Active 09/19/2014 [facility] INF Active 03/26/2014 [facility] jail use of systemic steroids 01/24/2018 [facility] [place] Other specified disorders of bone density and structure, unspecified site 01/24/2018 [facility] [place] Vitamin D deficiency, unspecified 01/24/2018 [facility] [place] Arthritis Resolved Problem 01/24/2018 [facility] [place] Diverticulitis Resolved Problem 01/24/2018 [facility] [place] DM (<span ID="[id number]">Confirmed</span>) Active Problem 01/24/2018 [facility] [place] DM (<span ID="[id number]">Confirmed</span>) Resolved Problem 01/24/2018 [facility] [place] Escherichia coli<sup>1</sup> Active Problem 01/24/2018 Problem added by Discern Expert. [facility] [place] H/O: HTN (<span ID="[id number]">Confirmed</span>) Resolved Problem 01/24/2018 [facility] [place] H/O: hypothyroidism Resolved Problem 01/24/2018 [facility] [place] RA (<span ID="[id number]">Confirmed</span>) Active Problem 01/24/2018 [facility] [place] Arthritis Resolved Problem 07/13/2017 [facility] [place] Diverticulitis Resolved Problem 07/13/2017 [facility] [place] DM (<span ID="[id number]">Confirmed</span>) Active Problem 07/13/2017 [facility] [place] DM (<span ID="[id number]">Confirmed</span>) Resolved Problem 07/13/2017 [facility] [place] Escherichia coli<sup>1</sup> Active Problem 07/13/2017 Problem added by Discern Expert. [facility] [place] H/O: HTN (<span ID="[id number]">Confirmed</span>) Resolved Problem 07/13/2017 [facility] [place] H/O: hypothyroidism Resolved Problem 07/13/2017 [facility] [place] RA (<span ID="[id number]">Confirmed</span>) Active Problem 07/13/2017 [facility]INFARCT NEC Active [facility] ENCOUNTER FOR THERAPEUTIC DRUG LEVEL MON Active [facility] INTERSTITIAL PULMONARY DISEASE, UNSPECIF Active [facility] RHEU ARTHRITIS W RHEU FACTOR MULT SITE W Active [facility] Medications Medication Details Route Status Patient Instructions Ordering Provider Order Date Source Acetaminophen 300 MG / Codeine Phosphate 30 MG Oral Tablet [Tylenol with Codeine #3] 1 - 2 tab, PO, Q4H, PRN Pain, X 3 day, # 20 tab, 0 Refill(s) Active 05/29/2016 [facility] INVanz + Sodium Chloride 0.9% IV 100 mL 1 gm, Route: IVPB, [id number], Start date: 03/26/14 10:00:00, Duration: 14 day, Stop date: 04/08/14 10:00:00Notes: (Same as: INVanz) Refrigerate. NOT COMPATIBLE WITH D5W. Stable in refrigerator for 24 hours. Active 03/26/2014 [facility] Ampicillin 1 gm, 2 cap, Route: PO, Drug form: CAP, TID, Dosing Weight 72.727, kg, Start date: 03/25/14 17:00:00, Duration: 30 day, Stop date: 04/24/14 13:00:00Notes: On empty stomach. Take 1 hour before or 2 hours after meal (Same as: Principen) Inactive 03/25/2014 [facility] ampicillin 500 mg oral capsule =1,000 mg, PO, TID, # 42 caplet, 0 Refill(s) Active 03/25/2014 [facility] ertapenem 1 g injection =1 gm, IV, Q24H, # 14 bag, 0 Refill(s) Active 03/25/2014 [facility] Vancomycin 750 mg, Route: IVPB, [id number], Dosing Weight 72.727, kg, Start date: 03/24/14 16:00:00, Duration: 10 day, Stop date: 04/03/14 4:00:00Notes: (Same As: Vancocin) No Longer Active 03/24/2014 [facility] Methotrexate 20 mg, 8 tab, Route: PO, Drug form: TAB, QSun, Dosing Weight 72.727, kg, Start date: 03/21/14 9:00:00, Duration: 30 day, Stop date: 04/18/14 9:00:00Notes: (Same as:Methotrexate Sodium) Chemotherapy a gent/Handle with caution No Longer Active 03/21/2014 [facility] meropenem 500 mg, Route: IVPB, [id number], Dosing Weight 72.727, kg, CrCL >=50ml/min, Extended infusion, infuse over 3 hours, Start date: 03/20/14 19:00:00, Duration: 30 day, Stop date: 04/19/14 13:00:00Notes: Same as Merrem.. No Longer Active 03/21/2014 [facility] Tylenol 1 gm, 100 mL, Route: IV, Drug form: INJ, PRN, Dosing Weight 72.727, kg, PRN Pain, Start date: 03/19/14 9:21:00, Duration: 1 day, Stop date: 03/20/14 9:20:00Notes: Infuse over 15 minutes Do not exceed 4gm/day of acetaminophen No Longer Active 03/19/2014 [facility] Folic Acid 1 mg, 1 tab, Route: PO, Drug form: TAB, Daily, Dosing Weight 72.727, kg, Start date: 03/17/14 9:00:00, Duration: 30 day, Stop date: 04/15/14 9:00:00Notes: (Same as: Folvite) No Longer Active 03/17/2014 [facility] Tricor 145 mg, 1 tab, Route: PO, Drug form: TAB, Daily, Dosing Weight 72.727, kg, Start date: 03/17/14 9:00:00, Duration: 30 day, Stop date: 04/15/14 9:00:00Notes: (Same as: Tricor) No Longer Active 03/17/2014 [facility] Enalapril 10 mg, 1 tab, Route: PO, Drug form: TAB, Daily, Dosing Weight 72.727, kg, Start date: 03/17/14 9:00:00, Duration: 30 day, Stop date: 04/15/14 9:00:00Notes: (Same as: Vasotec) No Longer Active 03/17/2014 [facility] pneumococcal capsular polysaccharide type 1 vaccine / pneumococcal capsular polysaccharide type 10A vaccine / pneumococcal capsular polysaccharide type 11A vaccine / pneumococcal capsular polysaccharide type 12F vaccine / pneumococcal capsular polysacchar 0.5 ml, Route: IM, Drug Form: INJ, Daily, Start date: 03/17/14 9:00:00, Duration: 1 doses or times, Stop date: 03/17/14 9:00:00Notes: (Same as: Pneumovax 23) Refrigerate Inactive 03/17/2014 [facility] Vitamin B6 25 mg, 0.5 tab, Route: PO, Drug form: TAB, Daily, Dosing Weight 72.727, kg, Start date: 03/17/14 9:00:00, Duration: 30 day, Stop date: 04/15/14 9:00:00Notes: (Same as: Vitamin B6) No Longer Active 03/17/2014 [facility] Losartan 25 mg, 1 tab, Route: PO, Drug form: TAB, Daily, Dosing Weight 72.727, kg, Start date: 03/17/14 9:00:00, Duration: 30 day, Stop date: 04/15/14 9:00:00Notes: (Same as: Cozaar) No Longer Active 03/17/2014 [facility] isoniazid 300 mg, 1 tab, Route: PO, Drug form: TAB, Daily, Dosing Weight 72.727, kg, Start date: 03/17/14 9:00:00, Duration: 30 day, Stop date: 04/15/14 9:00:00Notes: (Same as:INH 1 hr prior to meal. No Longer Active 03/17/2014 [facility] Hydrochlorothiazide 25 mg, 1 tab, Route: PO, Drug form: TAB, Daily, Dosing Weight 72.727, kg, Start date: 03/17/14 9:00:00, Duration: 30 day, Stop date: 04/15/14 9:00:00Notes: (Same as: Hydrodiuril) With food. No Longer Active 03/17/2014 [facility] Thyroxine 100 microgram, 1 tab, Route: PO, Drug form: TAB, [id number], Dosing Weight 72.727, kg, Start date: 03/17/14 6:30:00, Duration: 30 day, Stop date: 04/15/14 6:30:00Notes: Take 1 hour before or 2 hours after meal; Enteral feeds may interefere with the absorption of this medication. (Same as:Levothroid, Synthroid) No Longer Active 03/17/2014 [facility] Levaquin 500 mg, 100 mL, Route: IVPB, Drug form: INJ, [id number], Dosing Weight 72.727, kg, Start date: 03/17/14 5:00:00, Duration: 30 day, Stop date: 04/15/14 5:00:00Notes: (Same as:Levaquin) No Longer Active 03/17/2014 [facility] Levemir FlexPen 70 unit, 0.7 mL, Route: SUB-Q, Drug form: INJ, Bedtime, Start date: 03/16/14 21:00:00, Duration: 30 day, Stop date: 04/14/14 21:00:00Notes: Same as Levemir "single patient use only" No Longer Active 03/17/2014 [facility] Lantus 70 unit, Route: SUB-Q, Drug form: SOLN, Bedtime, Dosing Weight 72.727, kg, Start date: 03/16/14 21:00:00, Duration: 30 day, Stop date: 04/14/14 21:00:00 Inactive 03/17/2014 [facility] NovoLOG FlexPen 32 unit, 0.32 mL, Route: SUB-Q, Drug form: SOLN, BID, Start date: 03/16/14 17:00:00, Duration: 30 day, Stop date: 04/15/14 9:00:00Notes: Roll in palms of hands gently; Do not shake vigorously. (Same as: NovoLOG) "single patient use only" Stable for 28 days at room temperature. Expires in days from Date No Longer Active 03/16/2014 [facility] Cipro 500 mg, 1 tab, Route: PO, Drug form: TAB, [id number], Dosing Weight 72.727, kg, Start date: 03/16/14 17:00:00, Duration: 30 day, Stop date: 04/15/14 5:00:00Notes: May interfere w/enteral feedings - Take 1 hr before or 2 hrs after antacids, dairy pdt & minerals. On empty stomach. No Longer Active 03/16/2014 [facility] Omeprazole 40 mg, Route: PO, Drug form: DRC, BID, Dosing Weight 72.727, kg, Start date: 03/16/14 17:00:00, Duration: 30 day, Stop date: 04/15/14 9:00:00 Inactive 03/16/2014 [facility] Protonix 40 mg, 1 tab, Route: PO, Drug form: ECTAB, BID, Start date: 03/16/14 17:00:00, Duration: 30 day, Stop date: 04/15/14 9:00:00Notes: Tablet should not be chewed or crushed. (Same as: Protonix) No Longer Active 03/16/2014 [facility] Flagyl 500 mg, 1 tab, Route: PO, Drug form: TAB, [id number], Dosing Weight 72.727, kg, Start date: 03/16/14 17:00:00, Duration: 30 day, Stop date: 04/15/14 9:00:00Notes: (Same as: Flagyl) Take with food/ avoid alcohol No Longer Active 03/16/2014 [facility] Enoxaparin 40 mg, 0.4 mL, Route: SUB-Q, Drug form: INJ, [id number], Dosing Weight 72.727, kg, Start date: 03/16/14 17:00:00, Duration: 30 day, Stop date: 04/14/14 17:00:00Notes: (Same as: Lovenox) No Longer Active 03/16/2014 [facility] Humalog Kwik Pen 32 unit, Route: SUB-Q, BID, Dosing Weight 72.727, kg, Start date: 03/16/14 17:00:00, Duration: 30 day, Stop date: 04/15/14 9:00:00 Inactive 03/16/2014 [facility] tramadol hydrochloride 50 MG Oral Tablet 50 mg, 1 tab, Route: PO, Drug form: TAB, Q8H, Dosing Weight 72.727, kg, PRN Pain Score 1-5, Start date: 03/16/14 16:38:00, Duration: 30 day, Stop date: 04/15/14 16:37:00Notes: Not to exceed 400mg/day. (Same As: Ultram) No Longer Active 03/16/2014 [facility] Acetaminophen 325 MG / Hydrocodone Bitartrate 5 MG Oral Tablet [[place] 5/325] 1 tab, Route: PO, Drug Form: TAB, Dosing Weight 72.727, kg, Q6H, PRN Pain Score 6-10, Start date: 03/16/14 16:36:00, Duration: 30 day, Stop date: 04/15/14 16:35:00Notes: (Same as: [place] 325/5) Do not exceed 4gm/day of acetaminophen. No Longer Active 03/16/2014 [facility] Insulin Glargine 100 UNT/ML Injectable Solution [Lantus] =90 unit, SUB-Q, Bedtime, # 10 ml, 0 Refill(s) Active 03/16/2014 [facility] isoniazid 100 mg oral tablet 300 mg=3 tab, PO, Daily, # 20 tab, 0 Refill(s) Active 03/16/2014 [facility] Acetaminophen 325 MG / Hydrocodone Bitartrate 5 MG Oral Tablet [[place] 5/325] 1 tab, PO, Q6H, Pain Score 6-10, 0 Refill(s) Active 03/16/2014 [facility] Flagyl 500 mg, 100 mL, Route: IVPB, Drug form: INJ, [id number], Dosing Weight 72.727, kg, Priority: STAT, Start date: 03/16/14 4:14:00, Duration: 30 day, Stop date: 04/14/14 15:00:00Notes: (Same as: Flagyl) Avoid alcohol. Inactive 03/16/2014 [facility] Saline Flush 0.9% 5 ml, Route: IVP, Drug Form: INJ, Dosing Weight 72.727, kg, PRN, PRN Line Flush, Start date: 03/16/14 4:14:00, Duration: 30 day, Stop date: 04/15/14 4:13:00Notes: (Same as: BD Posiflush) No Longer Active 03/16/2014 [facility] 1/2NS + KCL 20mEq/L 1000ml (Premix) 1,000 mL 1,000 mL, Rate: 125 ml/hr, Infuse over: 8 hr, Route: IV, Dosing Weight 72.727 kg, Total Volume: 1,000, Start date: 03/16/14 4:14:00, Duration: 30 day, Stop date: 04/15/14 4:13:00 No Longer Active 03/16/2014 [facility] Acetaminophen 650 mg, 20.3 mL, Route: PO, Drug form: LIQ, Q4H, Dosing Weight 72.727, kg, PRN Pain 1-3/Temp > 100.4 F, Start date: 03/16/14 4:14:00, Duration: 30 day, Stop date: 04/15/14 4:13:00Notes: Max aceta movjtujw=3539zw/day (4 gm/day). (Same as: Tylenol) No Longer Active 03/16/2014 [facility] Ondansetron 4 mg, 2 mL, Route: IVP, Drug form: INJ, Q8H, Dosing Weight 72.727, kg, PRN Nausea & Vomiting, Start date: 03/16/14 4:14:00, Duration: 30 day, Stop date: 04/15/14 4:13:00Notes: (Same as: Zofran) No Longer Active 03/16/2014 [facility] Morphine 4 mg, 2 mL, Route: IVP, Drug form: INJ, Q4H, Dosing Weight 72.727, kg, PRN Pain Score 4-6, Start date: 03/16/14 4:14:00, Stop date: 04/15/14 4:13:00Notes: (Same as:MORPhine Sulfate) No Longer Active 03/16/2014 [facility] Levaquin 500 mg, 100 mL, Route: IV, Drug form: INJ, ONCE, Dosing Weight 72.727, kg, Start date: 03/16/14 2:03:00, Stop date: 03/16/14 2:03:00Notes: (Same as:Levaquin) Inactive 03/16/2014 [facility] Flagyl 500 mg, Route: IVPB, ONCE, Dosing Weight 72.727, kg, Priority: STAT, Start date: 03/16/14 2:03:00, Stop date: 03/16/14 2:03:00 Inactive 03/16/2014 [facility] Sodium Chloride 0.154 MEQ/ML Injectable Solution 1,000 mL, 1,000 ml/hr, Infuse Over: 1 hr, Route: IV, 1,000, Drug form: INJ, ONCE, Priority: STAT, Dosing Weight 72.727 kg, Start date: 03/15/14 23:33:00, Duration: 1 doses or times, Stop date: 03/15/14 23:33:00 No Longer Active 03/16/2014 [facility] Zofran 4 mg, 2 mL, Route: IVP, Drug form: INJ, ONCE, Dosing Weight 72.727, kg, Priority: STAT, Start date: 03/15/14 23:32:00, Stop date: 03/15/14 23:32:00Notes: (Same as: Zofran) No Longer Active 03/16/2014 [facility] Morphine 4 mg, 2 mL, Route: IVP, Drug form: INJ, ONCE, Dosing Weight 72.727, kg, Priority: STAT, Start date: 03/15/14 23:32:00, Stop date: 03/15/14 23:32:00Notes: (Same as:MORPhine Sulfate) No Longer Active 03/16/2014 [facility] Allergies, Adverse Reactions, Alerts Substance Category Reaction Severity Reaction type Status Date Reported Comments Source penicillins Assertion Drug allergy Active [facility] Immunizations Immunization Date Given Site Status Last Updated Comments Source pneumococcal 23-valent vaccine 03/17/2014 Right deltoid completed [facility], [facility] pneumococcal 23-valent vaccine 03/17/2014 Right deltoid completed [facility], [facility] [place] Results Order Name Results Value Reference Range Date Interpretation Comments Source Spine cervical comp w obl-flx/ext DX Spine cervical comp w obl-flx/ext DX EXAM: XR CERVICAL SPINE 7 VIEWS DATE: 04/18/2018 4:27 PM CDT INDICATION: - M05.79 Rheumatoid arthritis with rheumatoid factor of multiple sites without organ or systems involvement COMPARISON: None. TECHNIQUE: AP, lateral, open-mouth odontoid, RPO and LPO, flexion, extension radiographs of the cervical spine show from the skull base through the upper chest. FINDINGS: Vertebral body heights and alignment are preserved. Moderate disc height loss at C5-6 and C6-7 with associated anterior and posterior osteophytes. Mild narrowing of the left greater than right C6-7 neural foramina secondary to uncovertebral hypertrophy. Moderate facet arthropathy greatest between C2-C5. No abnormal motion is identified upon flexion or extension. No erosions. No prevertebral or paraspinous soft tissue abnormality is identified. IMPRESSION: 1. Moderate degenerative disc and facet changes at C5-6 and C6-7. 2. Grade 1 anterolisthesis at C4-5. 3. No bony erosions, periosteal reaction, or ankylosis. 04/18/2018 - - This report was dictated by a Car Construction Superintendent/Fellow. I have personally reviewed the images as well as the Resident's interpretation and agree with the findings. Read by: Castillo Cortes (Fellow) Resident: Castillo Cortes (Fellow) Dictated Date/time: 04/21/18 10:33 Electronically Signed by: Tia Moraes MD 04/21/18 18:44 FINAL REPORT [facility] Bone Density [employer] MA Bone Density [employer] MA BONE DENSITY ASSESSMENT: 10/18/2017 CLINICAL DATA: Post menopausal and clinical risk for osteoporosis. Z79.52[facility] jail (current) use of systemic steroids. Z79.52 [facility] (Current) Use Of Systemic Steroids/Z79.52 [facility] (Current) Use Of Systemic Steroids FINDINGS: Bone density evaluation was performed 10/18/2017 on the right femur neck using a Hologic unit. The BMD average for the exam is 0.654 g/cm2. The T-score is -1.80 and the Z-score is -0.20. This matches the World Health Organization's criteria for osteopenia and places the patient at a medium risk for fracture. An additional bone density evaluation was performed 10/18/2017 on the left femur neck using a Hologic unit. The BMD average for the exam is 0.731 g/cm2. The T- score is -1.10 and the Z-score is 0.40. This matches the World Health Organization's criteria for osteopenia and places the patient at a medium risk for fracture. An additional bone density evaluation was performed 10/18/2017 on the right hip using a Hologic unit. The BMD average for the exam is 0.863 g/cm2. The T-score is -0.60 and the Z-score is 0.60. This matches the World Health Organization's criteria for normal bone density and places the patient within normal limits of fracture risk. An additional bone density evaluation was performed 10/18/2017 on the left hip using a Hologic unit. The BMD average for the exam is 0.907 g/cm2. The T-score is -0.30 and the Z-score is 0.90. This matches the World Health Organization's criteria for normal bone density and places the patient within normal limits of fracture risk. An additional bone density evaluation was performed 10/18/2017 on the AP L1-L4 region of spine using a Hologic unit. The BMD average for the exam is 0.822 g/cm2. The T-score is -1.10 and the Z-score is 0.80. This matches the World Health Organization's criteria for osteopenia and places the patient at a medium risk for fracture. IMPRESSION: OSTEOPENIA Patient is at medium risk for fracture. Patient consult w/primary care provider is recommended. This exam was interpreted at [id number] for ELYSE Cisneros. Grisel Trinh M.D., ms/kristy:10/20/2017 09:45:19 Silk Examiner(s): Melany YOO(R)(Marcus), [facility] 10/18/2017 - - Read by: Grisel Trinh MD Dictated Date/time: 10/20/17 09:45 Electronically Signed by: Grisel Trinh MD 10/20/17 09:45 FINAL REPORT [facility] Chest wo contrast CT Chest wo contrast CT INDICATION: - Z87.09 Personal history of other diseases of the respiratory system; eval for interstitial lung disease COMPARISON: Chest CT dated 09/26/2014 TECHNIQUE: Sequential trans-axial images were obtained through the chest and upper abdomen without administration of intravenous contrast, according to the high resolution protocol. Imaging was performed with inspiration and expiration in the prone and supine positions. DLP: 434 mGy-cm AEC, mA/kV adjustment by patient size, and/or iterative reconstruction technique were used, per departmental dose-optimization program. FINDINGS: Lower neck: Visualized portions are unremarkable. Lungs: There are no centrilobular or panlobular lucencies to suggest emphysema. There are mild bilateral subpleural reticular opacities without evidence of kali honeycombing. There are no discrete pulmonary nodules. There is no bronchiectasis. There is no evidence of air trapping. There is no pleural effusion or pneumothorax. Heart: Unremarkable. No pericardial effusion. Vasculature: The main pulmonary artery has normal caliber. The ascending and descending thoracic aorta measure within normal limits. There is no significant atherosclerotic plaque. Lymph Nodes: There is no hilar, mediastinal, axillary, or internal mammary lymphadenopathy. Upper abdomen: The liver is markedly steatotic. Bones: No acute abnormality. Soft tissues: Unremarkable. IMPRESSION: Subpleural reticular opacities may represent early fibrosis. 10/18/2017 - - Read by: Mary Forbes Dictated Date/time: 10/21/17 16:53 Electronically Signed by: Mary Forbes 10/21/17 17:08 FINAL REPORT [facility] Chest 2 views DX Chest 2 views DX EXAM: XR CHEST 2 VIEWS DATE: 07/10/2017 3:11 PM CDT INDICATION: - M05.79 Rheumatoid arthritis with rheumatoid factor of multiple sites without organ or systems involvement COMPARISON: 09/24/2014, CT scan of the chest with contrast of 09/26/2014 TECHNIQUE: PA and lateral chest radiographs FINDINGS: Right perihilar scarring is present, not significantly changed from the prior exam. There is mild stable elevation of the right hemidiaphragm from eventration. No other pleural abnormalities are seen. No other lung parenchymal or pleural abnormalities are seen. Lupe and pulmonary vasculature are normal. Cardiac silhouette is normal in size. Atherosclerotic calcifications are again seen in the thoracic aorta. No acute bony abnormality is identified. IMPRESSION: No acute cardiopulmonary abnormality. Stable right perihilar scarring and mild right anterior diaphragmatic elevation. 07/10/2017 - - Read by: Law Santoro MD Dictated Date/time: 07/10/17 16:00 Electronically Signed by: Law Santoro MD 07/10/17 16:03 [facility] bilateral DX Foot 3 views bilateral DX EXAM: XR BILATERAL FOOT 3 VIEWS DATE: 07/10/2017 3:12 PM CDT INDICATION: - M05.79 Rheumatoid arthritis with rheumatoid factor of multiple sites without organ or systems involvement COMPARISON: None TECHNIQUE: AP, lateral and oblique radiographs of the feet Laterality: Bilateral FINDINGS: Generally diminished bone mineral density. Bilateral hammertoe deformities. Left hallux valgus with lateral subluxation of the first MTP joint and bony bunion formation. Small bilateral osteophytes of the first MTP joint. No joint space narrowing or erosions of the midfoot. Bilateral small plantar calcaneal enthesophytes. No abnormal soft tissue calcifications. IMPRESSION: 1. No specific findings of rheumatoid arthritis in the feet. 2. Bilateral mild first MTP osteoarthrosis. 3. Left hallux valgus with lateral subluxation of the first MTP joint. 07/10/2017 - - Read by: Julio Crum MD Dictated Date/time: 07/10/17 16:15 Electronically Signed by: Julio Crum MD 07/10/17 16:17 FINAL REPORT [facility] Hand 3 views Bilateral DX Hand 3 views Bilateral DX EXAM: XR BILATERAL HAND 3 VIEWS DATE: 07/10/2017 3:12 PM CDT INDICATION: - M05.79 Rheumatoid arthritis with rheumatoid factor of multiple sites without organ or systems involvement COMPARISON: Right hand and wrist 05/29/2016 TECHNIQUE: PA, lateral and oblique radiographs of the bilateral hands. FINDINGS: Generalized diminished bone mineral density. Moderate joint space narrowing small osteophytes throughout the interphalangeal joints. Severe narrowing and large osteophytes of the right second and third MCP joints. Additional joint space narrowing throughout the remaining bilateral MCP joints. No erosions identified. Bilateral swan-neck deformities of the fingers. Lateral subluxation of the right first IP joint on lateral radiograph. IMPRESSION: 1. Bilateral swan-neck deformities of the fingers as well as advanced arthrosis of the right second and third MCP joints, consistent with rheumatoid arthritis with secondary osteoarthrosis. 2. Nonspecific mild joint space narrowing throughout the bilateral interphalangeal joints and remaining MCP joints. 07/10/2017 - - Read by: Julio Crum MD Dictated Date/time: 07/10/17 16:17 Electronically Signed by: Julio Crum MD 07/10/17 16:19 FINAL REPORT [facility] Knee 3 views DX Knee 3 views DX RIGHT KNEE RADIOGRAPH 3 VIEW CLINICAL INDICATION: Posttraumatic right knee pain COMPARISON: None IMPRESSION: 1. No acute bony abnormalities are visualized. 2. There is moderate to advanced tricompartmental degenerative arthrosis, greatest involving the medial compartment. 3. Mild suprapatellar joint effusion is noted. SL:16 05/29/2016 - - Read by: Jersey Lacey MD Dictated Date/time: 05/29/16 17:48 Electronically Signed by: Jersey Lacey MD 05/29/16 17:49 FINAL REPORT [facility] Wrist complete DX Wrist complete DX RIGHT WRIST RADIOGRAPH 3 VIEW, right hand radiograph 3 views CLINICAL INDICATION: Pain from a fall COMPARISON: None IMPRESSION: There is advanced arthrosis of the hand and wrist. There is subluxation of the first DIP joint and nearly all of the MCP joints. This appearance could potentially be chronic, related to arthrosis. Grossly, no acute fractures of the hand or wrist are identified. There is VISI deformity of the wrist. SL:16 05/29/2016 - - Read by: Jersey Lacey MD Dictated Date/time: 05/29/16 17:49 Electronically Signed by: Jersey Lacey MD 05/29/16 17:52 FINAL REPORT [facility] Hand 3 views DX Hand 3 views DX RIGHT WRIST RADIOGRAPH 3 VIEW, right hand radiograph 3 views CLINICAL INDICATION: Pain from a fall COMPARISON: None IMPRESSION: There is advanced arthrosis of the hand and wrist. There is subluxation of the first DIP joint and nearly all of the MCP joints. This appearance could potentially be chronic, related to arthrosis. Grossly, no acute fractures of the hand or wrist are identified. There is VISI deformity of the wrist. SL:16 05/29/2016 - - Read by: Jersey Lacey MD Dictated Date/time: 05/29/16 17:49 Electronically Signed by: Jersey Lacey MD 05/29/16 17:52 FINAL REPORT [facility] Pulmonary Embolism CTA Chest Pulmonary Embolism CTA CTA CHEST WITH CONTRAST: CLINICAL HISTORY: Chest pain TECHNIQUE AND FINDINGS: Multiple contiguous post contrast transaxial CT images were obtained through the chest. Additionally, two dimensional and three dimensional reformatted images were prepared. COMPARISON: 09/19/2014. 1. No evidence of pulmonary embolus. The previously identified tiny peripheral left upper lobe pulmonary embolus is no longer appreciated. 2. The heart remains mildly enlarged with coronary artery calcifications and a decreasing size small to moderate pericardial effusion. Some minimal enhancement of the pericardial layers suggest the possibility of pericardial inflammation, infection, or empyema. A tiny focus of gas within the right side of the pericardial effusion may represent pericardiocentesis or infection. Clinical correlation is required. 3. Stable to slightly increasing size moderate left pleural effusion with adjacent opacity likely representing passive atelectasis although pneumonia is difficult to exclude with certainty. Slightly increasing size small right pleural effusion with adjacent opacity representing passive atelectasis. 4. No interval consolidation or pneumothorax. 5. Stable small mediastinal and bilateral axillary lymph nodes. 6. Cholecystectomy. 7. Mild spinal degenerative changes without acute injury or suspicious focal osseous lesion. No acute fracture, dislocation, or focal osseous lesion is appreciated. SL:17 09/26/2014 - - Read by: Arnel Payne MD Dictated Date/time: 09/26/14 20:29 Electronically Signed by: Arnel Payne MD 09/26/14 20:35 FINAL REPORT [facility] 1view Chest 1view CHEST, portable (1 view) 09/24/2014 @ 6: 55 HISTORY: Dyspnea. Comparison is made to 09/20/2014. Studies of 09/19/2014 and 03/24/2014 were reviewed. A chest CT scan of 09/19/2014 was also reviewed. FINDINGS: 1. No significant change in the appearance the chest from 09/20/2014. 2. Left basilar opacity appears to represent a small left pleural effusion with underlying atelectasis. There is minimal right base or atelectasis per the lungs are otherwise clear. There are no new or acute findings. 3. Mild cardiomegaly. It is noted the recent chest CT scan demonstrated a pericardial effusion. Please refer to that report. Coding: Chest 1view CPT Code: 79598 SL: 13 Jorge Garza M.D. 09/24/2014 - - Read by: Jorge Garza MD Dictated Date/time: 09/24/14 07:25 Electronically Signed by: Jorge Garza MD 09/24/14 07:27 FINAL REPORT [facility] 1view Chest 1view PORTABLE CHEST 09/20/2014 AT 0544 HOURS. INDICATION: Abnormal chest sounds. COMPARISON: Chest 09/19/2014. Image quality is compromised by the large patient size and portable technique. The cardiac silhouette is moderately enlarged. The retrocardiac portion of the left hemithorax remains opaque. The lungs appear congested in the perihilar regions. No gross pleural effusion is seen. SL: 12 09/20/2014 - - Read by: Jesús Freedman MD Dictated Date/time: 09/20/14 07:45 Electronically Signed by: Jesús Freedman MD 09/20/14 07:46 FINAL REPORT [facility] Ext Lower Venous Doppler Bilat US Ext Lower Venous Doppler Bilat US Bilateral Lower Extremity Venous Doppler HX: Embolism/occlusion lower extremity COMMENT: The deep venous system of the lower extremities was interrogated from inguinal ligament to the popliteal fossae utilizing high-resolution duplex sonography . The deep veins are readily visualized and easily compressible with the exception of the distal right femoral vein which was not compressed completely due to patient discomfort. Augmentation and spectral analysis were normal in the deep veins bilaterally.. There is normal spontaneous, phasic flow by spectral Doppler analysis. This constitutes a negative exam. An incidental finding on this examination is a right-sided popliteal cyst measuring 4.1 x 1.4 x 2.6 cm. A left-sided popliteal cyst measures 6.4 x 1.5 x 4.8 cm. CONCLUSION: 1. Negative bilateral lower extremity venous Doppler. 2. Right distal femoral vein not completely compressed due to discomfort. 3. Bilateral popliteal cysts. SL: 12 09/19/2014 - - Read by: Raulito Ashraf MD Dictated Date/time: 09/20/14 03:36 Electronically Signed by: Raulito Ashraf MD 09/20/14 03:39 FINAL REPORT [facility] Chest w contrast CT Chest w contrast CT EXAM: CT pulmonary arteries and routine CT chest HISTORY: Chest pain, possible pulmonary embolism COMPARISON: Chest radiograph 09/19/2014 TECHNIQUE: Thin collimation axial images obtained through the pulmonary arteries; routine CT chest then performed. IV contrast given. FINDINGS: 1. Small embolism left upper lobe pulmonary artery. 2. Large pericardial effusion. 3. Small left pleural effusion and tiny right pleural effusion. Dependent atelectasis in the lung bases. 4. Mild interstitial pulmonary edema. Findings may reflect heart failure. 5. No bulky adenopathy. 6. Fatty liver. Findings discussed with Dr. Burgos prior to dictation. SL:13 09/19/2014 - - Read by: Sumit Ramsey MD Dictated Date/time: 09/19/14 14:14 Electronically Signed by: Sumit Ramsey MD 09/19/14 14:23 FINAL REPORT [facility] Chest 1view Chest 1view EXAM: Portable chest x-ray. HISTORY: Chest pain. Comparison 03/24/2014. TECHNIQUE: Portable frontal view of the chest. FINDINGS: Shallow inspiration. Stable cardiomegaly with left ventricular prominence. Possible mild dependent atelectasis or consolidation left lung base. SL:13 09/19/2014 - - Read by: Sumit Ramsey MD Dictated Date/time: 09/19/14 10:58 Electronically Signed by: Sumit Ramsey MD 09/19/14 10:59 FINAL REPORT [facility] CHEM PANEL BUN 8 mg/dL 7 - 22 03/24/2014 [facility] CHEM PANEL Glucose Lvl 177 mg/dL 70 - 99 03/24/2014 4Interpretive Data: Adult reference range values reflect the clinical guidelines of the [place] [employer]. [facility] CHEM PANEL AGAP 10.0 meq/L 10.0 - 20.0 03/24/2014 [facility] CHEM PANEL CO2 26 meq/L 24 - 32 03/24/2014 [facility] CHEM PANEL Creatinine Lvl 0.6 mg/dL 0.5 - 1.4 03/24/2014 [facility] CHEM PANEL Sodium Lvl 141 meq/L 135 - 145 03/24/2014 [facility] CHEM PANEL Potassium Lvl 4.0 meq/L 3.5 - 5.1 03/24/2014 [facility] CHEM PANEL Chloride Lvl 109 meq/L 95 - 109 03/24/2014 [facility] CHEM PANEL Calcium Lvl 8.0 mg/dL 8.5 - 10.5 03/24/2014 [facility] CHEM PANEL eGFR 97 mL/min/1.73m2 03/24/2014 1Result Comment: The eGFR is calculated using [...] from the National Kidney Disease Education Program (NKDEP) which additionally recommends that when the eGFR is used in patients with extremes of body mass index for purposes of drug dosing, the eGFR should be multiplied by the estimated BMI. [facility] MCV 89.3 fL 81.0 - 99.0 03/24/2014 [facility] Hct 32.8 % 36.0 - 48.0 03/24/2014 [facility] Hgb 11.0 g/dL 12.0 - 16.0 03/24/2014 [facility] MPV 7.2 fL 7.4 - 10.4 03/24/2014 [facility] Platelet 376 K/CMM 133 - 450 03/24/2014 [facility] RDW 15.2 % 11.5 - 14.5 03/24/2014 [facility] RBC X 10x6 3.68 M/CMM 4.20 - 5.40 03/24/2014 [facility] MCH 29.9 pg 27.0 - 31.0 03/24/2014 [facility] MCHC 33.5 g/dL 32.0 - 36.0 03/24/2014 [facility] WBC X 10x3 10.1 K/CMM 3.7 - 10.4 03/24/2014 [facility] Lymphocytes # 1.4 K/CMM 1.0 - 5.5 03/24/2014 [facility] Eosinophils # 0.5 K/CMM 0.0 - 0.5 03/24/2014 [facility] HEMATOLOGY Monocytes # 0.2 K/CMM 0.0 - 0.8 03/24/2014 [facility] HEMATOLOGY Segs-Bands # 7.9 K/CMM 1.5 - 8.1 03/24/2014 [facility] HEMATOLOGY Basophils 0.4 % 0.0 - 1.0 03/24/2014 [facility] HEMATOLOGY Eosinophils 5.4 % 0.0 - 4.0 03/24/2014 [facility] HEMATOLOGY Monocytes 2.2 % 2.0 - 12.0 03/24/2014 [facility] HEMATOLOGY Lymphocytes 14.3 % 20.0 - 40.0 03/24/2014 [facility] HEMATOLOGY Segs 77.7 % 45.0 - 75.0 03/24/2014 [facility] ELECTROLYTES AGAP 10.6 meq/L 10.0 - 20.0 03/23/2014 [facility] ELECTROLYTES eGFR 78 mL/min/1.73m2 03/23/2014 2Result Comment: The eGFR is calculated using [...] from the National Kidney Disease Education Program (NKDEP) which additionally recommends that when the eGFR is used in patients with extremes of body mass index for purposes of drug dosing, the eGFR should be multiplied by the estimated BMI. [facility] ELECTROLYTES Creatinine Lvl 0.8 mg/dL 0.5 - 1.4 03/23/2014 [facility] ELECTROLYTES CO2 26 meq/L 24 - 32 03/23/2014 [facility] ELECTROLYTES Calcium Lvl 8.2 mg/dL 8.5 - 10.5 03/23/2014 [facility] ELECTROLYTES Chloride Lvl 107 meq/L 95 - 109 03/23/2014 [facility] ELECTROLYTES Potassium Lvl 3.6 meq/L 3.5 - 5.1 03/23/2014 [facility] ELECTROLYTES Sodium Lvl 140 meq/L 135 - 145 03/23/2014 [facility] ELECTROLYTES BUN 8 mg/dL 7 - 22 03/23/2014 [facility] ELECTROLYTES Glucose Lvl 166 mg/dL 70 - 99 03/23/2014 5Interpretive Data: Adult reference range values reflect the clinical guidelines of the [place] [employer]. [facility] HEMATOLOGY RDW 15.6 % 11.5 - 14.5 03/23/2014 [facility] MCHC 33.2 g/dL 32.0 - 36.0 03/23/2014 [facility] MCH 29.7 pg 27.0 - 31.0 03/23/2014 [facility] MCV 89.5 fL 81.0 - 99.0 03/23/2014 [facility] Platelet 379 K/CMM 133 - 450 03/23/2014 [facility] MPV 6.9 fL 7.4 - 10.4 03/23/2014 [facility] Hgb 10.4 g/dL 12.0 - 16.0 03/23/2014 [facility] RBC X 10x6 3.50 M/CMM 4.20 - 5.40 03/23/2014 [facility] Hct 31.3 % 36.0 - 48.0 03/23/2014 [facility] WBC X 10x3 10.9 K/CMM 3.7 - 10.4 03/23/2014 [facility] Basophils # 0.1 K/CMM 0.0 - 0.2 03/23/2014 [facility] HEMATOLOGY Segs-Bands # 8.9 K/CMM 1.5 - 8.1 03/23/2014 [facility] Eosinophils # 0.5 K/CMM 0.0 - 0.5 03/23/2014 [facility] Monocytes # 0.2 K/CMM 0.0 - 0.8 03/23/2014 [facility] Lymphocytes # 1.2 K/CMM 1.0 - 5.5 03/23/2014 [facility] HEMATOLOGY Basophils 0.9 % 0.0 - 1.0 03/23/2014 [facility] Lymphocytes 11.4 % 20.0 - 40.0 03/23/2014 [facility] HEMATOLOGY Segs 81.6 % 45.0 - 75.0 03/23/2014 [facility] Monocytes 1.5 % 2.0 - 12.0 03/23/2014 [facility] HEMATOLOGY Eosinophils 4.6 % 0.0 - 4.0 03/23/2014 [facility] CHEM PANEL A/G Ratio 0.5 0.7 - 1.6 03/21/2014 [facility] CHEM PANEL Globulin 4.2 g/dL 2.0 - 4.0 03/21/2014 [facility] CHEM PANEL AGAP 14.9 meq/L 10.0 - 20.0 03/21/2014 [facility] CHEM PANEL B/C Ratio 6 6 - 25 03/21/2014 [facility] CHEM PANEL Sodium Lvl 139 meq/L 135 - 145 03/21/2014 [facility] CHEM PANEL Creatinine Lvl 0.8 mg/dL 0.5 - 1.4 03/21/2014 [facility] CHEM PANEL BUN 5 mg/dL 7 - 22 03/21/2014 [facility] CHEM PANEL Total Protein 6.2 g/dL 6.4 - 8.4 03/21/2014 [facility] CHEM PANEL ALT 9 unit/L 0 - 65 03/21/2014 [facility] CHEM PANEL Albumin Lvl 2.0 g/dL 3.5 - 5.0 03/21/2014 [facility] CHEM PANEL CO2 22 meq/L 24 - 32 03/21/2014 [facility] CHEM PANEL Calcium Lvl 8.4 mg/dL 8.5 - 10.5 03/21/2014 [facility] CHEM PANEL Potassium Lvl 3.9 meq/L 3.5 - 5.1 03/21/2014 [facility] CHEM PANEL Chloride Lvl 106 meq/L 95 - 109 03/21/2014 [facility] CHEM PANEL Glucose Lvl 174 mg/dL 70 - 99 03/21/2014 6Interpretive Data: Adult reference range values reflect the clinical guidelines of the [place] [employer]. [facility] CHEM PANEL AST 13 unit/L 0 - 37 03/21/2014 [facility] CHEM PANEL Alk Phos 70 unit/L 39 - 136 03/21/2014 [facility] CHEM PANEL Bili Total 0.4 mg/dL 0.2 - 1.3 03/21/2014 [facility] CHEM PANEL eGFR 78 mL/min/1.73m2 03/21/2014 3Result Comment: The eGFR is calculated using [...] from the National Kidney Disease Education Program (NKDEP) which additionally recommends that when the eGFR is used in patients with extremes of body mass index for purposes of drug dosing, the eGFR should be multiplied by the estimated BMI. [facility] RBC X 10x6 3.69 M/CMM 4.20 - 5.40 03/21/2014 [facility] Hgb 11.0 g/dL 12.0 - 16.0 03/21/2014 [facility] MCHC 33.5 g/dL 32.0 - 36.0 03/21/2014 [facility] RDW 15.2 % 11.5 - 14.5 03/21/2014 [facility] Platelet 434 K/CMM 133 - 450 03/21/2014 [facility] Hct 32.8 % 36.0 - 48.0 03/21/2014 [facility] MCV 88.7 fL 81.0 - 99.0 03/21/2014 [facility] MCH 29.7 pg 27.0 - 31.0 03/21/2014 [facility] MPV 6.8 fL 7.4 - 10.4 03/21/2014 [facility] WBC X 10x3 13.1 K/CMM 3.7 - 10.4 03/21/2014 [facility] Basophils # 0.1 K/CMM 0.0 - 0.2 03/21/2014 [facility] Eosinophils # 0.5 K/CMM 0.0 - 0.5 03/21/2014 [facility] Monocytes # 0.6 K/CMM 0.0 - 0.8 03/21/2014 [facility] Lymphocytes # 1.4 K/CMM 1.0 - 5.5 03/21/2014 [facility] Segs-Bands # 10.6 K/CMM 1.5 - 8.1 03/21/2014 [facility] Basophils 0.5 % 0.0 - 1.0 03/21/2014 [facility] Plt Morph Normal (03/21/14 6:42 AM) 03/21/2014 [facility] RBC Morph Normal (03/21/14 6:42 AM) 03/21/2014 [facility] Eosinophils 3.5 % 0.0 - 4.0 03/21/2014 [facility] Monocytes 4.4 % 2.0 - 12.0 03/21/2014 [facility] HEMATOLOGY Lymphocytes 10.6 % 20.0 - 40.0 03/21/2014 [facility] HEMATOLOGY Segs 81.0 % 45.0 - 75.0 03/21/2014 [facility] HEMATOLOGY Basophils # 0.1 K/CMM 0.0 - 0.2 03/19/2014 [facility] CHEM PANEL Magnesium Lvl 1.5 mg/dL 1.8 - 2.4 03/17/2014 [facility] CHEM PANEL Phosphorus 1.8 mg/dL 2.5 - 4.5 03/17/2014 [facility] HEMATOLOGY PTT 30.4 s 22.9 - 35.8 03/17/2014 7Interpretive Data: Heparin Therapeutic Range: 57 - 92 Seconds [facility] CARDIAC ENZYMES CK MB Index 2.8 0.0 - 2.5 03/16/2014 [facility] CARDIAC ENZYMES Troponin-I null 0.00 - 0.40 03/16/2014 [facility] CARDIAC ENZYMES Total CK 25 unit/L 12 - 191 03/16/2014 [facility] CARDIAC ENZYMES CK MB 0.7 ng/mL 0.5 - 3.6 03/16/2014 [facility] CHEM PANEL Amylase Lvl 23 unit/L 25 - 115 03/16/2014 [facility] CHEM PANEL Magnesium Lvl 1.4 mg/dL 1.8 - 2.4 03/16/2014 [facility] CHEM PANEL Lipase Lvl 156 unit/L 73 - 393 03/16/2014 [facility] CHEM PANEL Bili Total 0.4 mg/dL 0.2 - 1.3 03/16/2014 [facility] CHEM PANEL B/C Ratio 10 6 - 25 03/16/2014 [facility] CHEM PANEL A/G Ratio 0.5 0.7 - 1.6 03/16/2014 [facility] CHEM PANEL Globulin 4.9 g/dL 2.0 - 4.0 03/16/2014 [facility] CHEM PANEL Alk Phos 72 unit/L 39 - 136 03/16/2014 [facility] CHEM PANEL Total Protein 7.4 g/dL 6.4 - 8.4 03/16/2014 [facility] CHEM PANEL Albumin Lvl 2.5 g/dL 3.5 - 5.0 03/16/2014 [facility] CHEM PANEL AST 10 unit/L 0 - 37 03/16/2014 [facility] CHEM PANEL ALT 15 unit/L 0 - 65 03/16/2014 [facility] HEMATOLOGY RBC Morph Normal (03/15/14 11:55 PM) 03/16/2014 [facility] HEMATOLOGY Plt Morph Normal (03/15/14 11:55 PM) 03/16/2014 [facility] URINE AND STOOL UA Color Yellow *NA* (03/15/14 12:51 AM) Yellow 03/15/2014 [facility] URINE AND STOOL UA Turbidity Clear (03/15/14 12:51 AM) Clear 03/15/2014 [facility] URINE AND STOOL UA Spec Grav 1.025 <=1.030 03/15/2014 [facility] URINE AND STOOL UA Nitrite Negative (03/15/14 12:51 AM) Negative 03/15/2014 [facility] URINE AND STOOL UA Leuk Est Negative (03/15/14 12:51 AM) Negative 03/15/2014 [facility] URINE AND STOOL UA pH 6.0 5.0 - 8.0 03/15/2014 [facility] URINE AND STOOL UA Protein Negative (03/15/14 12:51 AM) Negative 03/15/2014 [facility] URINE AND STOOL UA Glucose >=1000 mg/dL Negative mg/dL 03/15/2014 [facility] URINE AND STOOL UA Ketones Negative *NA* (03/15/14 12:51 AM) Negative 03/15/2014 [facility] URINE AND STOOL UA Bili Small *ABN* (03/15/14 12:51 AM) Negative 03/15/2014 [facility] URINE AND STOOL UA Blood Negative (03/15/14 12:51 AM) Negative 03/15/2014 [facility] URINE AND STOOL UA Urobilinogen 0.2 EU/dL 0.1 - 1.0 03/15/2014 [facility] URINE AND STOOL UA WBC 12 /HPF 0 - 5 03/15/2014 [facility] URINE AND STOOL UA Hyal Cast 12 /LPF 0 - 2 03/15/2014 [facility] URINE AND STOOL UA Mucus Few /LPF None Seen /LPF 03/15/2014 [facility] URINE AND STOOL UA Bacteria Occasional /HPF None Seen /HPF 03/15/2014 [facility] URINE AND STOOL UA RBC 5 /HPF 0 - 2 03/15/2014 [facility] URINE AND STOOL UA Sq Epi Many /LPF Few /LPF 03/15/2014 [facility] Vital Signs Vital Sign Value Date Comments Source Respitory Rate 20 05/29/2016 [facility] Temperature Oral (F) 98.3 F 05/29/2016 [facility] Heart Rate 86 05/29/2016 [facility] Systolic (mm Hg) 123 05/29/2016 [facility] Diastolic (mm Hg) 78 05/29/2016 [facility] Temperature Oral (F) 98.4 F 05/29/2016 [facility] Heart Rate 90 05/29/2016 [facility] Respitory Rate 18 05/29/2016 [facility] Systolic (mm Hg) 142 05/29/2016 [facility] Diastolic (mm Hg) 84 05/29/2016 [facility] Weight 90.909 05/29/2016 [facility] BMI Calculated 39.14 05/29/2016 [facility] Height 152.4 cm 05/29/2016 [facility] Weight 72.7 03/26/2014 [facility] Height 165.1 cm 03/26/2014 [facility] BMI Calculated 26.67 03/26/2014 [facility] Temperature Oral (F) 97.9 F 03/25/2014 [facility] Heart Rate 89 03/25/2014 [facility] Respitory Rate 14 03/25/2014 [facility] Diastolic (mm Hg) 70 03/25/2014 [facility] Systolic (mm Hg) 121 03/25/2014 [facility] Heart Rate 86 03/25/2014 [facility] Respitory Rate 14 03/25/2014 [facility] Diastolic (mm Hg) 89 03/25/2014 [facility] Systolic (mm Hg) 131 03/25/2014 [facility] Temperature Oral (F) 98.4 F 03/25/2014 [facility] Heart Rate 96 03/25/2014 [facility] Diastolic (mm Hg) 72 03/25/2014 [facility] Systolic (mm Hg) 133 03/25/2014 [facility] Respitory Rate 14 03/25/2014 [facility] Temperature Oral (F) 98.7 F 03/25/2014 [facility] BMI Calculated 26.68 03/17/2014 [facility] Weight 72.727 03/17/2014 [facility] Height 165.1 cm 03/17/2014 [facility] Weight 72.727 03/15/2014 [facility] Height 165.1 cm 03/15/2014 [facility] BMI Calculated 26.68 03/15/2014 [facility] Encounters Location Location Details Encounter Type Encounter Number Reason For Visit Attending Provider ADM Date DC Date Status Source [facility] Inpatient [id number] Will Mehul 03/15/2014 03/25/2014 [facility] OP Recurring [id number] Soni Mehta 03/26/2014 04/25/2014 [facility] Emergency [id number] Nando Rodriguez 05/29/2016 05/29/2016 [facility] [place] [facility] [id number] Chen Yuan 07/10/2017 07/11/2017 [facility] [place] [facility] [id number] Chen Yuan 10/18/2017 10/19/2017 [facility] Procedures Procedure Code Date Perfomer Comments Source [facility]olecyst[facility] [id number] [id number] [place] [id number] [facility]
--- OUTSIDE RECORDS SUMMARY | 2018-07-15 13:44 | XMS REPORT | Summary of Care ---
Author Author [facility] [place] Organization [facility] [place] Address Unknown Phone Unavailable Encounter [place](IZZ[facility]) [id number] Date(s): 10/18/17 - 10/18/17 [facility] [place] [address] [place], [place] [address] [phone] Encounter Diagnosis Asymptomatic menopausal state (Final) - 10/21/17 [facility] (current) use of systemic steroids (Final) - Other specified disorders of bone density and structure, unspecified site (Final) - Vitamin D deficiency, unspecified (Final) - Discharge Disposition: Home or Self Care Attending [...] Procedures Procedure Date Related Diagnosis Body Site Status Cholecystectomy Completed Social History Social History Type Response Smoking Status Former smoker; Type: Cigarettes; Previous treatment: None; Ready to change: No; Concerns about tobacco use in household: No; Exposure to Tobacco Smoke None; Cigarette Smoking Last 365 Days Yes; Reg Smoking Cessation Counseling No; Started [age] age: 29.0; 1, 2 entered on: 05/29/16 1quit smoking 6 months ago 2Quit in January 2014 Assessment and Plan No data available for this section
== END 2018-07-12 18:21 | disposition home or self-care (01) ==
LOC: ER 14:37
DX: R10.33 Periumbilical pain (principal); R11.2 Nausea with vomiting, unspecified; R19.7 Diarrhea, unspecified; K52.9 Noninfective gastroenteritis and colitis, unspecified; I10 Essential (primary) hypertension; E11.9 Type 2 diabetes mellitus without complications; E78.5 Hyperlipidemia, unspecified; I51.9 Heart disease, unspecified
CPT/HCPCS: 36415; 74176; 80053; 81001; 82550; 82553; 83605; 83690; 84484; 85025; 87086; 87186; 93005; 99284; J2270; J2405; J7030

== ENCOUNTER 2018-09-28 12:32 | Observation (INO) | payer MEDICARE ==
[~2018-09-28] VITALS: Ht 167.6 cm; Wt 96.2 kg
--- OUTSIDE RECORDS SUMMARY | 2018-09-28 12:36 | XMS REPORT | Continuity of Care Document ---
Author Author [facility] Interface Address Unknown Phone Unavailable Problems Problem Status Onset Date Classification Date Reported Comments Source Asymptomatic menopausal state 10/22/2017 01/24/2018 ASPEN James R05, Z51.81, J84.9, M05.79 W/DLCO AN Active 10/17/2017 [facility] KNEE INJURY Active 05/29/2016 [facility] Discharge Diagnosis: Contusion of knee 05/29/2016 06/01/2016 [facility] Discharge Diagnosis: Right wrist sprain 05/29/2016 06/01/2016 [facility] Pulmonary embolism Active 09/19/2014 Problem 01/24/2018 ASPEN James, ASPEN Torres,[facility] PERCARIDAL EFFUSION Active 09/19/2014 [facility] CHEST PAIN Active 09/19/2014 [facility] INF Active 03/26/2014 [facility] alf use of systemic steroids 01/24/2018 ASPEN James Other specified disorders of bone density and structure, unspecified site 01/24/2018 ASPEN James Vitamin D deficiency, unspecified 01/24/2018 ASPEN James Arthritis Resolved Problem 01/24/2018 ASPEN James,[facility], [facility] [place] Diverticulitis Resolved Problem 01/24/2018 ASPEN James,[facility], [facility] [place] DM (<span ID="[id number]">Confirmed</span>) [facility] [place] [facility] (<span ID="[id number]">Confirmed</span>) [facility] [place] Escherichia coli<sup>1</sup> Active Problem 01/24/2018 Problem added by Discern Expert. [facility] H/O: HTN (<span ID="[id number]">Confirmed</span>) Resolved Problem 01/24/2018 ASPEN [facility] [place] [facility]/O: hypothyroidism Resolved Problem 01/24/2018 ASPEN James,[facility] RA (<span ID="[id number]">Confirmed</span>) Active Problem 01/24/2018 ASPEN James,[facility] PULM EMBOL/INFARCT NEC Active [facility] ENCOUNTER FOR THERAPEUTIC DRUG LEVEL MON Active [facility] INTERSTITIAL PULMONARY DISEASE, UNSPECIF Active [facility] RHEU ARTHRITIS W RHEU FACTOR MULT SITE W Active [facility] Medications Medication Details Route Status Patient Instructions Ordering Provider Order Date Source Acetaminophen 300 MG / Codeine Phosphate 30 MG Oral Tablet [Tylenol with Codeine #3] 1 - 2 tab, PO, Q4H, PRN Pain, X 3 day, # 20 tab, 0 Refill(s) Active 05/29/2016 [facility] INVanz + Sodium Chloride 0.9% IV 100 mL 1 gm, Route: IVPB, [id number], Start date: 03/26/14 10:00:00, Duration: 14 day, Stop date: 04/08/14 10:00:00Notes: (Same as: INVanz) Refrigerate. NOT COMPATIBLE WITH D5W. Stable in refrigerator for 24 hours. Active 03/26/2014 [facility] Ampicillin 1 gm, 2 cap, Route: PO, Drug form: CAP, TID, Dosing Weight 72.727, kg, Start date: 03/25/14 17:00:00, Duration: 30 day, Stop date: 04/24/14 13:00:00Notes: On empty stomach. Take 1 hour before or 2 hours after meal (Same as: Principen) Inactive 03/25/2014 [facility] ampicillin 500 mg oral capsule =1,000 mg, PO, TID, # 42 caplet, 0 Refill(s) Active 03/25/2014 [facility] ertapenem 1 g injection =1 gm, IV, Q24H, # 14 bag, 0 Refill(s) Active 03/25/2014 [facility] Vancomycin 750 mg, Route: IVPB, [id number], Dosing Weight 72.727, kg, Start date: 03/24/14 16:00:00, Duration: 10 day, Stop date: 04/03/14 4:00:00Notes: (Same As: Vancocin) No Longer Active 03/24/2014 [facility] Methotrexate 20 mg, 8 tab, Route: PO, Drug form: TAB, QSun, Dosing Weight 72.727, kg, Start date: 03/21/14 9:00:00, Duration: 30 day, Stop date: 04/18/14 9:00:00Notes: (Same as:Methotrexate Sodium) Chemotherapy a gent/Handle with caution No Longer Active 03/21/2014 [facility] meropenem 500 mg, Route: IVPB, [id number], Dosing Weight 72.727, kg, CrCL >=50ml/min, Extended infusion, infuse over 3 hours, Start date: 03/20/14 19:00:00, Duration: 30 day, Stop date: 04/19/14 13:00:00Notes: Same as Merrem.. No Longer Active 03/21/2014 [facility] Tylenol 1 gm, 100 mL, Route: IV, Drug form: INJ, PRN, Dosing Weight 72.727, kg, PRN Pain, Start date: 03/19/14 9:21:00, Duration: 1 day, Stop date: 03/20/14 9:20:00Notes: Infuse over 15 minutes Do not exceed 4gm/day of acetaminophen No Longer Active 03/19/2014 [facility] Folic Acid 1 mg, 1 tab, Route: PO, Drug form: TAB, Daily, Dosing Weight 72.727, kg, Start date: 03/17/14 9:00:00, Duration: 30 day, Stop date: 04/15/14 9:00:00Notes: (Same as: Folvite) No Longer Active 03/17/2014 [facility] Tricor 145 mg, 1 tab, Route: PO, Drug form: TAB, Daily, Dosing Weight 72.727, kg, Start date: 03/17/14 9:00:00, Duration: 30 day, Stop date: 04/15/14 9:00:00Notes: (Same as: Tricor) No Longer Active 03/17/2014 [facility] Enalapril 10 mg, 1 tab, Route: PO, Drug form: TAB, Daily, Dosing Weight 72.727, kg, Start date: 03/17/14 9:00:00, Duration: 30 day, Stop date: 04/15/14 9:00:00Notes: (Same as: Vasotec) No Longer Active 03/17/2014 [facility] pneumococcal capsular polysaccharide type 1 vaccine / pneumococcal capsular polysaccharide type 10A vaccine / pneumococcal capsular polysaccharide type 11A vaccine / pneumococcal capsular polysaccharide type 12F vaccine / pneumococcal capsular polysacchar 0.5 ml, Route: IM, Drug Form: INJ, Daily, Start date: 03/17/14 9:00:00, Duration: 1 doses or times, Stop date: 03/17/14 9:00:00Notes: (Same as: Pneumovax 23) Refrigerate Inactive 03/17/2014 [facility] Vitamin B6 25 mg, 0.5 tab, Route: PO, Drug form: TAB, Daily, Dosing Weight 72.727, kg, Start date: 03/17/14 9:00:00, Duration: 30 day, Stop date: 04/15/14 9:00:00Notes: (Same as: Vitamin B6) No Longer Active 03/17/2014 [facility] Losartan 25 mg, 1 tab, Route: PO, Drug form: TAB, Daily, Dosing Weight 72.727, kg, Start date: 03/17/14 9:00:00, Duration: 30 day, Stop date: 04/15/14 9:00:00Notes: (Same as: Cozaar) No Longer Active 03/17/2014 [facility] isoniazid 300 mg, 1 tab, Route: PO, Drug form: TAB, Daily, Dosing Weight 72.727, kg, Start date: 03/17/14 9:00:00, Duration: 30 day, Stop date: 04/15/14 9:00:00Notes: (Same as:INH 1 hr prior to meal. No Longer Active 03/17/2014 [facility] Hydrochlorothiazide 25 mg, 1 tab, Route: PO, Drug form: TAB, Daily, Dosing Weight 72.727, kg, Start date: 03/17/14 9:00:00, Duration: 30 day, Stop date: 04/15/14 9:00:00Notes: (Same as: Hydrodiuril) With food. No Longer Active 03/17/2014 [facility] Thyroxine 100 microgram, 1 tab, Route: PO, Drug form: TAB, [id number], Dosing Weight 72.727, kg, Start date: 03/17/14 6:30:00, Duration: 30 day, Stop date: 04/15/14 6:30:00Notes: Take 1 hour before or 2 hours after meal; Enteral feeds may interefere with the absorption of this medication. (Same as:Levothroid, Synthroid) No Longer Active 03/17/2014 [facility] Levaquin 500 mg, 100 mL, Route: IVPB, Drug form: INJ, [id number], Dosing Weight 72.727, kg, Start date: 03/17/14 5:00:00, Duration: 30 day, Stop date: 04/15/14 5:00:00Notes: (Same as:Levaquin) No Longer Active 03/17/2014 [facility] Levemir FlexPen 70 unit, 0.7 mL, Route: SUB-Q, Drug form: INJ, Bedtime, Start date: 03/16/14 21:00:00, Duration: 30 day, Stop date: 04/14/14 21:00:00Notes: Same as Levemir "single patient use only" No Longer Active 03/17/2014 [facility] Lantus 70 unit, Route: SUB-Q, Drug form: SOLN, Bedtime, Dosing Weight 72.727, kg, Start date: 03/16/14 21:00:00, Duration: 30 day, Stop date: 04/14/14 21:00:00 Inactive 03/17/2014 [facility] NovoLOG FlexPen 32 unit, 0.32 mL, Route: SUB-Q, Drug form: SOLN, BID, Start date: 03/16/14 17:00:00, Duration: 30 day, Stop date: 04/15/14 9:00:00Notes: Roll in palms of hands gently; Do not shake vigorously. (Same as: NovoLOG) "single patient use only" Stable for 28 days at room temperature. Expires in days from Date No Longer Active 03/16/2014 [facility] Cipro 500 mg, 1 tab, Route: PO, Drug form: TAB, [id number], Dosing Weight 72.727, kg, Start date: 03/16/14 17:00:00, Duration: 30 day, Stop date: 04/15/14 5:00:00Notes: May interfere w/enteral feedings - Take 1 hr before or 2 hrs after antacids, dairy pdt & minerals. On empty stomach. No Longer Active 03/16/2014 [facility] Omeprazole 40 mg, Route: PO, Drug form: DRC, BID, Dosing Weight 72.727, kg, Start date: 03/16/14 17:00:00, Duration: 30 day, Stop date: 04/15/14 9:00:00 Inactive 03/16/2014 [facility] Protonix 40 mg, 1 tab, Route: PO, Drug form: ECTAB, BID, Start date: 03/16/14 17:00:00, Duration: 30 day, Stop date: 04/15/14 9:00:00Notes: Tablet should not be chewed or crushed. (Same as: Protonix) No Longer Active 03/16/2014 [facility] Flagyl 500 mg, 1 tab, Route: PO, Drug form: TAB, [id number], Dosing Weight 72.727, kg, Start date: 03/16/14 17:00:00, Duration: 30 day, Stop date: 04/15/14 9:00:00Notes: (Same as: Flagyl) Take with food/ avoid alcohol No Longer Active 03/16/2014 [facility] Enoxaparin 40 mg, 0.4 mL, Route: SUB-Q, Drug form: INJ, [id number], Dosing Weight 72.727, kg, Start date: 03/16/14 17:00:00, Duration: 30 day, Stop date: 04/14/14 17:00:00Notes: (Same as: Lovenox) No Longer Active 03/16/2014 [facility] Humalog Kwik Pen 32 unit, Route: SUB-Q, BID, Dosing Weight 72.727, kg, Start date: 03/16/14 17:00:00, Duration: 30 day, Stop date: 04/15/14 9:00:00 Inactive 03/16/2014 [facility] tramadol hydrochloride 50 MG Oral Tablet 50 mg, 1 tab, Route: PO, Drug form: TAB, Q8H, Dosing Weight 72.727, kg, PRN Pain Score 1-5, Start date: 03/16/14 16:38:00, Duration: 30 day, Stop date: 04/15/14 16:37:00Notes: Not to exceed 400mg/day. (Same As: Ultram) No Longer Active 03/16/2014 [facility] Acetaminophen 325 MG / Hydrocodone Bitartrate 5 MG Oral Tablet [[place] 5/325] 1 tab, Route: PO, Drug Form: TAB, Dosing Weight 72.727, kg, Q6H, PRN Pain Score 6-10, Start date: 03/16/14 16:36:00, Duration: 30 day, Stop date: 04/15/14 16:35:00Notes: (Same as: [place] 325/5) Do not exceed 4gm/day of acetaminophen. No Longer Active 03/16/2014 [facility] Insulin Glargine 100 UNT/ML Injectable Solution [Lantus] =90 unit, SUB-Q, Bedtime, # 10 ml, 0 Refill(s) Active 03/16/2014 [facility] isoniazid 100 mg oral tablet 300 mg=3 tab, PO, Daily, # 20 tab, 0 Refill(s) Active 03/16/2014 [facility] Acetaminophen 325 MG / Hydrocodone Bitartrate 5 MG Oral Tablet [[place] 5/325] 1 tab, PO, Q6H, Pain Score 6-10, 0 Refill(s) Active 03/16/2014 [facility] Flagyl 500 mg, 100 mL, Route: IVPB, Drug form: INJ, [id number], Dosing Weight 72.727, kg, Priority: STAT, Start date: 03/16/14 4:14:00, Duration: 30 day, Stop date: 04/14/14 15:00:00Notes: (Same as: Flagyl) Avoid alcohol. Inactive 03/16/2014 [facility] Saline Flush 0.9% 5 ml, Route: IVP, Drug Form: INJ, Dosing Weight 72.727, kg, PRN, PRN Line Flush, Start date: 03/16/14 4:14:00, Duration: 30 day, Stop date: 04/15/14 4:13:00Notes: (Same as: BD Posiflush) No Longer Active 03/16/2014 [facility] 1/2NS + KCL 20mEq/L 1000ml (Premix) 1,000 mL 1,000 mL, Rate: 125 ml/hr, Infuse over: 8 hr, Route: IV, Dosing Weight 72.727 kg, Total Volume: 1,000, Start date: 03/16/14 4:14:00, Duration: 30 day, Stop date: 04/15/14 4:13:00 No Longer Active 03/16/2014 [facility] Acetaminophen 650 mg, 20.3 mL, Route: PO, Drug form: LIQ, Q4H, Dosing Weight 72.727, kg, PRN Pain 1-3/Temp > 100.4 F, Start date: 03/16/14 4:14:00, Duration: 30 day, Stop date: 04/15/14 4:13:00Notes: Max aceta [id number]=0193lw/day (4 gm/day). (Same as: Tylenol) No Longer Active 03/16/2014 [facility] Ondansetron 4 mg, 2 mL, Route: IVP, Drug form: INJ, Q8H, Dosing Weight 72.727, kg, PRN Nausea & Vomiting, Start date: 03/16/14 4:14:00, Duration: 30 day, Stop date: 04/15/14 4:13:00Notes: (Same as: Zofran) No Longer Active 03/16/2014 [facility] Morphine 4 mg, 2 mL, Route: IVP, Drug form: INJ, Q4H, Dosing Weight 72.727, kg, PRN Pain Score 4-6, Start date: 03/16/14 4:14:00, Stop date: 04/15/14 4:13:00Notes: (Same as:MORPhine Sulfate) No Longer Active 03/16/2014 [facility] Levaquin 500 mg, 100 mL, Route: IV, Drug form: INJ, ONCE, Dosing Weight 72.727, kg, Start date: 03/16/14 2:03:00, Stop date: 03/16/14 2:03:00Notes: (Same as:Levaquin) Inactive 03/16/2014 [facility] Flagyl 500 mg, Route: IVPB, ONCE, Dosing Weight 72.727, kg, Priority: STAT, Start date: 03/16/14 2:03:00, Stop date: 03/16/14 2:03:00 Inactive 03/16/2014 [facility] Sodium Chloride 0.154 MEQ/ML Injectable Solution 1,000 mL, 1,000 ml/hr, Infuse Over: 1 hr, Route: IV, 1,000, Drug form: INJ, ONCE, Priority: STAT, Dosing Weight 72.727 kg, Start date: 03/15/14 23:33:00, Duration: 1 doses or times, Stop date: 03/15/14 23:33:00 No Longer Active 03/16/2014 [facility] Zofran 4 mg, 2 mL, Route: IVP, Drug form: INJ, ONCE, Dosing Weight 72.727, kg, Priority: STAT, Start date: 03/15/14 23:32:00, Stop date: 03/15/14 23:32:00Notes: (Same as: Zofran) No Longer Active 03/16/2014 [facility] Morphine 4 mg, 2 mL, Route: IVP, Drug form: INJ, ONCE, Dosing Weight 72.727, kg, Priority: STAT, Start date: 03/15/14 23:32:00, Stop date: 03/15/14 23:32:00Notes: (Same as:MORPhine Sulfate) No Longer Active 03/16/2014 [facility] Allergies, Adverse Reactions, Alerts Substance Category Reaction Severity Reaction type Status Date Reported Comments Source penicillins Assertion Drug allergy Active ASPEN Jacob Immunizations Immunization Date Given Site Status Last Updated Comments Source pneumococcal 23-valent vaccine 03/17/2014 [facility] deltoid [facility] Results Order Name Results Value Reference Range Date Interpretation Comments Source Chest 2 views DX Chest 2 views DX EXAM: XR CHEST 2 VIEWS DATE: 08/25/2018 INDICATION: Z51.81 Encounter for therapeutic drug level monitoring - M05.79 Rheumatoid arthritis with rheumatoid factor of multiple sites without organ or systems involvement, Z79.52 alf (current) use of systemic steroids COMPARISON: July 10, 2017 TECHNIQUE: PA and lateral chest radiographs FINDINGS: Lines and tubes: None. Lungs and pleura: Mild right perihilar scarring is unchanged. Stable elevation of the right hemidiaphragm, again noted. No acute pulmonary or pleural based abnormality is identified. Heart and mediastinum: The heart size is stable. Minimal atherosclerotic calcifications are seen in the thoracic aorta at the aortic knob. Bones: No acute bony abnormality is identified. IMPRESSION: No acute cardiopulmonary abnormality. 08/25/2018 - - Read by: Chantal Arevalo MD Dictated Date/time: 08/25/18 11:04 Electronically Signed by: Chantal Arevalo MD 08/25/18 11:06 FINAL REPORT [facility] Spine cervical comp w obl-flx/ext DX Spine [...] - This report was dictated by a Youth Development Specialist/Fellow. I have personally reviewed the images as well as the Resident's interpretation and agree with the findings. Read by: Castillo Cortes (Fellow) Resident: Castillo Cortes (Fellow) Dictated Date/time: 04/21/18 10:33 Electronically Signed by: Tia Moraes MD 04/21/18 18:44 FINAL REPORT [facility] Bone Density DXA [employer] MA Bone Density DXA [employer] MA BONE DENSITY ASSESSMENT: 10/18/2017 CLINICAL DATA: Post menopausal and clinical risk for osteoporosis. 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 Z79.52 Nursing Home (Current) Use Of Systemic Steroids/Z79.52 Nursing Home (Current) Use Of Systemic Steroids FINDINGS: Bone [...] is recommended. This exam was interpreted at [id number] for ELYSE Cisneros. Grisel Trinh M.D., ms/kristy:10/20/2017 09:45:19 Office Messenger Helper(s): Melany YOO(R)(M), [facility] 10/18/2017 - - Read by: Grisel Trinh [...] Mary Forbes 10/21/17 17:08 FINAL REPORT ELYSE James Chest 2 views DX Chest 2 views [...] Law Santoro MD 07/10/17 16:03 [facility] bilateral DX [...] Julio Crum MD 07/10/17 16:17 FINAL REPORT [facility] Hand 3 views Bilateral DX Hand 3 [...] Date/time: 07/10/17 16:17 Electronically Signed by: Julio Crmu MD 07/10/17 16:19 FINAL REPORT [facility] Knee 3 views DX Knee 3 views [...] Jersey Lacey MD 05/29/16 17:49 FINAL REPORT [facility] Wrist complete DX Wrist complete DX [...] Jersey Lacey MD 05/29/16 17:52 FINAL REPORT [facility] Hand 3 views DX Hand 3 views [...] Jersey Lacey MD 05/29/16 17:52 FINAL REPORT [facility] Pulmonary Embolism CTA Chest Pulmonary Embolism [...] Arnel Payne MD 09/26/14 20:35 FINAL REPORT [facility] 1view Chest 1view CHEST, portable (1 [...] that report. Coding: Chest 1view CPT Code: 60880 SL: 13 Jorge Garza M.D. 09/24/2014 - - Read by: Jorge Garza MD Dictated Date/time: 09/24/14 07:25 Electronically Signed by: Jorge Garza MD 09/24/14 07:27 FINAL REPORT [facility] Chest 1view Chest 1view PORTABLE CHEST 09/20/2014 AT [...] Jesús Freedman MD 09/20/14 07:46 FINAL REPORT [facility] Ext Lower Venous Doppler Bilat US [...] Raulito Ashraf MD 09/20/14 03:39 FINAL REPORT [facility] Chest w contrast CT Chest w [...] Sumit Ramsey MD 09/19/14 14:23 FINAL REPORT [facility] Chest 1view Chest 1view EXAM: Portable chest x-ray. HISTORY: Chest pain. Comparison 03/24/2014. TECHNIQUE: Portable frontal view of the chest. FINDINGS: Shallow inspiration. Stable cardiomegaly with left ventricular prominence. Possible mild dependent atelectasis or consolidation left lung base. SL:13 09/19/2014 - - Read by: Sumit Ramsey MD Dictated Date/time: 09/19/14 10:58 Electronically Signed by: Sumit Ramsey MD 09/19/14 10:59 FINAL REPORT [facility] CHEM PANEL BUN 8 mg/dL 7 - 22 03/24/2014 [facility] CHEM PANEL Glucose Lvl 177 mg/dL 70 - 99 03/24/2014 4Interpretive Data: Adult reference range values reflect the clinical guidelines of the [place] [employer]. [facility] CHEM PANEL AGAP 10.0 meq/L 10.0 - 20.0 03/24/2014 [facility] CHEM PANEL CO2 26 meq/L 24 - 32 03/24/2014 [facility] CHEM PANEL Creatinine Lvl 0.6 mg/dL 0.5 - 1.4 03/24/2014 [facility] CHEM PANEL Sodium Lvl 141 meq/L 135 - 145 03/24/2014 [facility] CHEM PANEL Potassium Lvl 4.0 meq/L 3.5 - 5.1 03/24/2014 [facility] CHEM PANEL Chloride Lvl 109 meq/L 95 - 109 03/24/2014 [facility] CHEM PANEL Calcium Lvl 8.0 mg/dL 8.5 - 10.5 03/24/2014 [facility] CHEM PANEL eGFR 97 mL/min/1.73m2 03/24/2014 [...] should be multiplied by the estimated BMI. [facility] MCV 89.3 fL 81.0 - 99.0 03/24/2014 [facility] Hct 32.8 % 36.0 - 48.0 03/24/2014 [facility] Hgb 11.0 g/dL 12.0 - 16.0 03/24/2014 [facility] MPV 7.2 fL 7.4 - 10.4 03/24/2014 [facility] Platelet 376 K/CMM 133 - 450 03/24/2014 [facility] RDW 15.2 % 11.5 - 14.5 03/24/2014 [facility] RBC X 10x6 3.68 M/CMM 4.20 - 5.40 03/24/2014 [facility] MCH 29.9 pg 27.0 - 31.0 03/24/2014 [facility] MCHC 33.5 g/dL 32.0 - 36.0 03/24/2014 [facility] WBC X 10x3 10.1 K/CMM 3.7 - 10.4 03/24/2014 [facility] Lymphocytes # 1.4 K/CMM 1.0 - 5.5 03/24/2014 [facility] HEMATOLOGY Eosinophils # 0.5 K/CMM 0.0 - 0.5 03/24/2014 [facility] HEMATOLOGY Monocytes # 0.2 K/CMM 0.0 - 0.8 03/24/2014 [facility] HEMATOLOGY Segs-Bands # 7.9 K/CMM 1.5 - 8.1 03/24/2014 [facility] HEMATOLOGY Basophils 0.4 % 0.0 - 1.0 03/24/2014 [facility] HEMATOLOGY Eosinophils 5.4 % 0.0 - 4.0 03/24/2014 [facility] HEMATOLOGY Monocytes 2.2 % 2.0 - 12.0 03/24/2014 [facility] HEMATOLOGY Lymphocytes 14.3 % 20.0 - 40.0 03/24/2014 [facility] HEMATOLOGY Segs 77.7 % 45.0 - 75.0 03/24/2014 [facility] ELECTROLYTES AGAP 10.6 meq/L 10.0 - 20.0 03/23/2014 [facility] ELECTROLYTES eGFR 78 mL/min/1.73m2 03/23/2014 2Result [...] should be multiplied by the estimated BMI. [facility] ELECTROLYTES Creatinine Lvl 0.8 mg/dL 0.5 - 1.4 03/23/2014 [facility] ELECTROLYTES CO2 26 meq/L 24 - 32 03/23/2014 [facility] ELECTROLYTES Calcium Lvl 8.2 mg/dL 8.5 - 10.5 03/23/2014 [facility] ELECTROLYTES Chloride Lvl 107 meq/L 95 - 109 03/23/2014 [facility] ELECTROLYTES Potassium Lvl 3.6 meq/L 3.5 - 5.1 03/23/2014 [facility] ELECTROLYTES Sodium Lvl 140 meq/L 135 - 145 03/23/2014 [facility] ELECTROLYTES BUN 8 mg/dL 7 - 22 03/23/2014 [facility] ELECTROLYTES Glucose Lvl 166 mg/dL 70 - 99 03/23/2014 5Interpretive Data: Adult reference range values reflect the clinical guidelines of the [place] [employer]. [facility] HEMATOLOGY RDW 15.6 % 11.5 - 14.5 03/23/2014 [facility] MCHC 33.2 g/dL 32.0 - 36.0 03/23/2014 [facility] MCH 29.7 pg 27.0 - 31.0 03/23/2014 [facility] MCV 89.5 fL 81.0 - 99.0 03/23/2014 [facility] Platelet 379 K/CMM 133 - 450 03/23/2014 [facility] MPV 6.9 fL 7.4 - 10.4 03/23/2014 [facility] Hgb 10.4 g/dL 12.0 - 16.0 03/23/2014 [facility] RBC X 10x6 3.50 M/CMM 4.20 - 5.40 03/23/2014 [facility] Hct 31.3 % 36.0 - 48.0 03/23/2014 [facility] WBC X 10x3 10.9 K/CMM 3.7 - 10.4 03/23/2014 [facility] HEMATOLOGY Basophils # 0.1 K/CMM 0.0 - 0.2 03/23/2014 [facility] HEMATOLOGY Segs-Bands # 8.9 K/CMM 1.5 - 8.1 03/23/2014 [facility] HEMATOLOGY Eosinophils # 0.5 K/CMM 0.0 - 0.5 03/23/2014 [facility] HEMATOLOGY Monocytes # 0.2 K/CMM 0.0 - 0.8 03/23/2014 [facility] HEMATOLOGY Lymphocytes # 1.2 K/CMM 1.0 - 5.5 03/23/2014 [facility] HEMATOLOGY Basophils 0.9 % 0.0 - 1.0 03/23/2014 [facility] HEMATOLOGY Lymphocytes 11.4 % 20.0 - 40.0 03/23/2014 [facility] HEMATOLOGY Segs 81.6 % 45.0 - 75.0 03/23/2014 [facility] HEMATOLOGY Monocytes 1.5 % 2.0 - 12.0 03/23/2014 [facility] HEMATOLOGY Eosinophils 4.6 % 0.0 - 4.0 03/23/2014 [facility] CHEM PANEL A/G Ratio 0.5 0.7 - 1.6 03/21/2014 [facility] CHEM PANEL Globulin 4.2 g/dL 2.0 - 4.0 03/21/2014 [facility] CHEM PANEL AGAP 14.9 meq/L 10.0 - 20.0 03/21/2014 [facility] CHEM PANEL B/C Ratio 6 6 - 25 03/21/2014 [facility] CHEM PANEL Sodium Lvl 139 meq/L 135 - 145 03/21/2014 [facility] [facility] PANEL Creatinine Lvl 0.8 mg/dL 0.5 - 1.4 03/21/2014 [facility] CHEM PANEL BUN 5 mg/dL 7 - 22 03/21/2014 [facility] CHEM PANEL Total Protein 6.2 g/dL 6.4 - 8.4 03/21/2014 [facility] CHEM PANEL ALT 9 unit/L 0 - 65 03/21/2014 [facility] CHEM PANEL Albumin Lvl 2.0 g/dL 3.5 - 5.0 03/21/2014 [facility] CHEM PANEL CO2 22 meq/L 24 - 32 03/21/2014 [facility] CHEM PANEL Calcium Lvl 8.4 mg/dL 8.5 - 10.5 03/21/2014 [facility] CHEM PANEL Potassium Lvl 3.9 meq/L 3.5 - 5.1 03/21/2014 [facility] CHEM PANEL Chloride Lvl 106 meq/L 95 - 109 03/21/2014 [facility] CHEM PANEL Glucose Lvl 174 mg/dL 70 - 99 03/21/2014 6Interpretive Data: Adult reference range values reflect the clinical guidelines of the [place] [employer]. [facility] CHEM PANEL AST 13 unit/L 0 - 37 03/21/2014 [facility] CHEM PANEL Alk Phos 70 unit/L 39 - 136 03/21/2014 [facility] CHEM PANEL Bili Total 0.4 mg/dL 0.2 - 1.3 03/21/2014 [facility] CHEM PANEL eGFR 78 mL/min/1.73m2 03/21/2014 [...] should be multiplied by the estimated BMI. [facility] RBC X 10x6 3.69 M/CMM 4.20 - 5.40 03/21/2014 [facility] Hgb 11.0 g/dL 12.0 - 16.0 03/21/2014 [facility] MCHC 33.5 g/dL 32.0 - 36.0 03/21/2014 [facility] RDW 15.2 % 11.5 - 14.5 03/21/2014 [facility] Platelet 434 K/CMM 133 - 450 03/21/2014 [facility] Hct 32.8 % 36.0 - 48.0 03/21/2014 [facility] MCV 88.7 fL 81.0 - 99.0 03/21/2014 [facility] MCH 29.7 pg 27.0 - 31.0 03/21/2014 [facility] MPV 6.8 fL 7.4 - 10.4 03/21/2014 [facility] WBC X 10x3 13.1 K/CMM 3.7 - 10.4 03/21/2014 [facility] Basophils # 0.1 K/CMM 0.0 - 0.2 03/21/2014 [facility] Eosinophils # 0.5 K/CMM 0.0 - 0.5 03/21/2014 [facility] Monocytes # 0.6 K/CMM 0.0 - 0.8 03/21/2014 [facility] Lymphocytes # 1.4 K/CMM 1.0 - 5.5 03/21/2014 [facility] Segs-Bands # 10.6 K/CMM 1.5 - 8.1 03/21/2014 [facility] Basophils 0.5 % 0.0 - 1.0 03/21/2014 [facility] Plt Morph Normal (03/21/14 6:42 AM) 03/21/2014 [facility] RBC Morph Normal (03/21/14 6:42 AM) 03/21/2014 [facility] Eosinophils 3.5 % 0.0 - 4.0 03/21/2014 [facility] HEMATOLOGY Monocytes 4.4 % 2.0 - 12.0 03/21/2014 [facility] HEMATOLOGY Lymphocytes 10.6 % 20.0 - 40.0 03/21/2014 [facility] HEMATOLOGY Segs 81.0 % 45.0 - 75.0 03/21/2014 [facility] HEMATOLOGY Basophils # 0.1 K/CMM 0.0 - 0.2 03/19/2014 [facility] CHEM PANEL Magnesium Lvl 1.5 mg/dL 1.8 - 2.4 03/17/2014 [facility] CHEM PANEL Phosphorus 1.8 mg/dL 2.5 - 4.5 03/17/2014 [facility] HEMATOLOGY PTT 30.4 s 22.9 - 35.8 03/17/2014 7Interpretive Data: Heparin Therapeutic Range: 57 - 92 Seconds [facility] CARDIAC ENZYMES CK MB Index 2.8 0.0 - 2.5 03/16/2014 [facility] CARDIAC ENZYMES Troponin-I null 0.00 - 0.40 03/16/2014 [facility] CARDIAC ENZYMES Total CK 25 unit/L 12 - 191 03/16/2014 [facility] CARDIAC ENZYMES CK MB 0.7 ng/mL 0.5 - 3.6 03/16/2014 [facility] CHEM PANEL Amylase Lvl 23 unit/L 25 - 115 03/16/2014 [facility] CHEM PANEL Magnesium Lvl 1.4 mg/dL 1.8 - 2.4 03/16/2014 [facility] CHEM PANEL Lipase Lvl 156 unit/L 73 - 393 03/16/2014 [facility] CHEM PANEL Bili Total 0.4 mg/dL 0.2 - 1.3 03/16/2014 [facility] CHEM PANEL B/C Ratio 10 6 - 25 03/16/2014 [facility] CHEM PANEL A/G Ratio 0.5 0.7 - 1.6 03/16/2014 [facility] CHEM PANEL Globulin 4.9 g/dL 2.0 - 4.0 03/16/2014 [facility] CHEM PANEL Alk Phos 72 unit/L 39 - 136 03/16/2014 [facility] CHEM PANEL Total Protein 7.4 g/dL 6.4 - 8.4 03/16/2014 [facility] CHEM PANEL Albumin Lvl 2.5 g/dL 3.5 - 5.0 03/16/2014 [facility] CHEM PANEL AST 10 unit/L 0 - 37 03/16/2014 [facility] CHEM PANEL ALT 15 unit/L 0 - 65 03/16/2014 [facility] HEMATOLOGY RBC Morph Normal (03/15/14 11:55 PM) 03/16/2014 [facility] HEMATOLOGY Plt Morph Normal (03/15/14 11:55 PM) 03/16/2014 [facility] URINE AND STOOL UA Color Yellow *NA* (03/15/14 12:51 AM) Yellow 03/15/2014 [facility] URINE AND STOOL UA Turbidity Clear (03/15/14 12:51 AM) Clear 03/15/2014 [facility] URINE AND STOOL UA Spec Grav 1.025 <=1.030 03/15/2014 [facility] URINE AND STOOL UA Nitrite Negative (03/15/14 12:51 AM) Negative 03/15/2014 [facility] URINE AND STOOL UA Leuk Est Negative (03/15/14 12:51 AM) Negative 03/15/2014 [facility] URINE AND STOOL UA pH 6.0 5.0 - 8.0 03/15/2014 [facility] URINE AND STOOL UA Protein Negative (03/15/14 12:51 AM) Negative 03/15/2014 [facility] URINE AND STOOL UA Glucose >=1000 mg/dL Negative mg/dL 03/15/2014 [facility] URINE AND STOOL UA Ketones Negative *NA* (03/15/14 12:51 AM) Negative 03/15/2014 [facility] URINE AND STOOL UA Bili Small *ABN* (03/15/14 12:51 AM) Negative 03/15/2014 [facility] URINE AND STOOL UA Blood Negative (03/15/14 12:51 AM) Negative 03/15/2014 [facility] URINE AND STOOL UA Urobilinogen 0.2 EU/dL 0.1 - 1.0 03/15/2014 [facility] URINE AND STOOL UA WBC 12 /HPF 0 - 5 03/15/2014 [facility] URINE AND STOOL UA Hyal Cast 12 /LPF 0 - 2 03/15/2014 [facility] URINE AND STOOL UA Mucus Few /LPF None Seen /LPF 03/15/2014 [facility] URINE AND STOOL UA Bacteria Occasional /HPF None Seen /HPF 03/15/2014 [facility] URINE AND STOOL UA RBC 5 /HPF 0 - 2 03/15/2014 [facility] URINE AND STOOL UA Sq Epi Many /LPF Few /LPF 03/15/2014 [facility] Vital Signs Vital Sign Value Date Comments Source Respitory Rate 20 05/29/2016 [facility] Temperature Oral (F) 98.3 F 05/29/2016 [facility] Heart Rate 86 05/29/2016 [facility] Systolic (mm Hg) 123 05/29/2016 [facility] Diastolic (mm Hg) 78 05/29/2016 [facility] Temperature Oral (F) 98.4 F 05/29/2016 [facility] Heart Rate 90 05/29/2016 [facility] Respitory Rate 18 05/29/2016 [facility] Systolic (mm Hg) 142 05/29/2016 [facility] Diastolic (mm Hg) 84 05/29/2016 [facility] Weight 90.909 05/29/2016 [facility] BMI Calculated 39.14 05/29/2016 [facility] Height 152.4 cm 05/29/2016 [facility] Weight 72.7 03/26/2014 [facility] Height 165.1 cm 03/26/2014 [facility] BMI Calculated 26.67 03/26/2014 [facility] Temperature Oral (F) 97.9 F 03/25/2014 [facility] Heart Rate 89 03/25/2014 [facility] Respitory Rate 14 03/25/2014 [facility] Diastolic (mm Hg) 70 03/25/2014 [facility] Systolic (mm Hg) 121 03/25/2014 [facility] Heart Rate 86 03/25/2014 [facility] Respitory Rate 14 03/25/2014 [facility] Diastolic (mm Hg) 89 03/25/2014 [facility] Systolic (mm Hg) 131 03/25/2014 [facility] Temperature Oral (F) 98.4 F 03/25/2014 [facility] Heart Rate 96 03/25/2014 [facility] Diastolic (mm Hg) 72 03/25/2014 [facility] Systolic (mm Hg) 133 03/25/2014 [facility] Respitory Rate 14 03/25/2014 [facility] Temperature Oral (F) 98.7 F 03/25/2014 [facility] BMI Calculated 26.68 03/17/2014 [facility] Weight 72.727 03/17/2014 [facility] Height 165.1 cm 03/17/2014 [facility] Weight 72.727 03/15/2014 [facility] Height 165.1 cm 03/15/2014 [facility] BMI Calculated 26.68 03/15/2014 [facility] Encounters Location Location Details Encounter Type Encounter Number Reason For Visit Attending Provider ADM Date DC Date Status Source [facility] Inpatient [id number] Will Carver 03/15/2014 03/25/2014 [facility] OP Recurring [id number] Soni Mehta 03/26/2014 04/25/2014 [facility] Emergency [id number] Nando Rodriguez 05/29/2016 05/29/2016 [facility] [place] [facility] [id number] Chen Yuan 07/10/2017 07/11/2017 [facility] [place] [facility] [id number] Chen Yuan 10/18/2017 10/19/2017 [facility] Procedures Procedure Code Date Perfomer Comments Source Cholecyst[facility] [id number] [id number] [place] [id number] [facility]
--- NOTE | 2018-09-28 13:55 | Diagnostic Imaging Report ---
EXAMINATION: CHEST 2 VIEWS INDICATION: Midsternal pain, cough, shortness of breath COMPARISON: No relevant priors FINDINGS: PA and lateral views Lateral image is motion degraded. TUBES and LINES: None. LUNGS: Low lung volumes with subsegmental atelectasis in the right middle lobe. Prominence of the pulmonary interstitium in the base of the left lung. PLEURA: No pleural effusion or pneumothorax. HEART AND MEDIASTINUM: The heart is top normal in size to mildly enlarged. The aorta is ectatic. BONES AND SOFT TISSUES: No focal osseous lesions. Soft tissues are unremarkable. UPPER ABDOMEN: No free air under the diaphragm. Cholecystectomy clips are present. IMPRESSION: Bibasilar subsegmental atelectasis. Small foci of pneumonia cannot be excluded. Signed by: Dr. Jacqueline Yarbrough MD on 09/28/2018 1:51 PM
[2018-09-28 14:03] LABS: BASOPHILS % 0.4 % (0.0-1.0); EOSINOPHILS # (AUTO) 0.3 (0.0-0.4); HEMATOCRIT 38.6 % (34.2-44.1); HEMOGLOBIN 12.5 g/dL (12.0-16.0); LYMPHOCYTES # (AUTO) 1.1 (1.0-3.2); LYMPHOCYTES % 10.2 % (18.0-39.1); MEAN CORPUSCULAR HEMOGLOBIN 32.2 pg (28-32); MEAN CORPUSCULAR HGB CONC 32.4 g/dL (31-35); MEAN CORPUSCULAR VOLUME 99.5 fL (81-99); MONOCYTES # (AUTO) 0.8 (0.2-0.8); MONOCYTES % 7.8 % (4.4-11.3); NEUTROPHILS # (AUTO) 8.3 (2.1-6.9); NEUTROPHILS % 77.9 % (38.7-80.0); PLATELET COUNT 240 x10e3/uL (140-360); RED BLOOD COUNT 3.88 x10e6/uL (3.6-5.1)
[2018-09-28 14:15] LABS: INR 0.94; PROTHROMBIN TIME 13.4 seconds (11.9-14.5)
[2018-09-28 14:16] LABS: PARTIAL THROMBOPLASTIN TIME 27.2 seconds (23.8-35.5)
[2018-09-28 14:23] LABS: ALANINE AMINOTRANSFERASE 24 IU/L (0-55); ALBUMIN 3.2 g/dL (3.5-5.0); ALBUMIN/GLOBULIN RATIO 0.9 (0.8-2.0); ALKALINE PHOSPHATASE 80 IU/L (40-150); ANION GAP 12.5 mmol/L (8-16); BLOOD UREA NITROGEN 10 mg/dL (7-26); BUN/CREATININE RATIO 13 (6-25); CALCIUM 9.3 mg/dL (8.4-10.2); CARBON DIOXIDE 22 mmol/L (22-29); CHLORIDE 106 mmol/L (98-107); CREATINE KINASE 55 IU/L (29-168); CREATININE, SERUM 0.76 mg/dL (0.57-1.11); EST GLOMERULAR FILTRATION RATE > 60 ML/MIN (60-); GLUCOSE 187 mg/dL (74-118); POTASSIUM 3.5 mmol/L (3.5-5.1); SODIUM 137 mmol/L (136-145)
[2018-09-28] MEDS ORDERED: SODIUM CHLORIDE 0.9% 1000ML 1,000 ML IV STA (14:51)
[2018-09-28] MEDS ORDERED: MORPHINE SULFATE 2 MG/ML SYR IV NR (15:00)
[2018-09-28] MEDS ORDERED: ONDANSETRON HCL INJ 2 MG/ML VIAL IV NR (15:00)
[2018-09-28] MEDS ORDERED: MORPHINE SULFATE INJ 4 MG/ML INJ ONE (15:10)
[2018-09-28 15:37] LABS: CLARITY,URINE HAZY (CLEAR); COLOR,URINE YELLOW (YELLOW)
[2018-09-28 15:38] LABS: BILIRUBIN,URINE NEGATIVE (NEGATIVE); KETONES,URINE NEGATIVE (NEGATIVE); LEUKOCYTE ESTERASE ,URINE 1+ (NEGATIVE); NITRITE,URINE POSITIVE (NEGATIVE); PROTEIN,URINE DIPSTICK NEGATIVE (NEGATIVE); URINE UROBILINOGEN 0.2 mg/dL (0.2 - 1)
[2018-09-28 15:39] LABS: BACTERIA,URINE MANY /HPF; EPITHELIAL CELLS,URINE MODERATE /LPF; RBC,URINE 0-5 /HPF (0-5)
[2018-09-28] MEDS: ENOXAPARIN SODIUM INJ 100 MG/ML SYR SC SCH (15:40)
[2018-09-28] MEDS ORDERED: CEFTRIAXONE SOD 1 GM VIAL IV SCH (16:15)
[2018-09-28] MEDS ORDERED: MORPHINE SULFATE 2 MG/ML SYR IV PRN (16:30)
[2018-09-28] MEDS ORDERED: DEXTROSE 50% SYRINGE 50 ML IV PRN (16:30)
[2018-09-28] MEDS ORDERED: ONDANSETRON HCL INJ 2 MG/ML VIAL IV PRN (16:30)
[2018-09-28] MEDS ORDERED: ASPIRIN 325 MG TAB EC PO NR (16:30)
[2018-09-28] MEDS: GENTAMICIN 80MG/NS 100 ML 100 ML IV SCH ×2 (16:44→22:21)
--- OUTSIDE RECORDS SUMMARY | 2018-09-28 16:51 | XMS REPORT ---
Author [facility] Address Unknown Phone Unavailable Care Team Providers Care Superintendent Schools Name Role Phone Francisco NELSON Unavailable Unavailable MANLizzeth VELASQUEZ Unavailable Unavailable CONSTANTINOFrancisco Unavailable Unavailable Problems This patient has no known problems. Allergies, Adverse Reactions, Alerts This patient has no known allergies or adverse reactions. Medications This patient has no known medications. Results Test Description Test Time Test Comments Text Results Atomic Results Result Comments CHEST 2 VIEWS 2018-09-28 13:49:00 [place] [address] Patient Name: SUZANNE MORROW MR #: [id number] : 1950 Age/Sex: 67/F Req #: [id number] Adm Physician: Ordered by: FLORENTIN NELSON MD Report #: [id number] Location: ER Room/Bed: Procedure: [id number] DX/CHEST 2 VIEWS Exam Date: 09/28/18 Exam Time: 1313 REPORT STATUS: Signed EXAMINATION: CHEST 2 VIEWS INDICATION: Midsternal pain, cough, shortness of breath COMPARISON: No relevant priors FINDINGS: PA and lateral views Lateral image is motion degraded. TUBES and LINES: None. LUNGS: Low lung volumes with subsegmental atelectasis in the right middle lobe. Prominence of the pulmonary interstitium in the base of the left lung. PLEURA: No pleural effusion or pneumothorax. HEART AND MEDIASTINUM: The heart is top normal in size to mildly enlarged. The aorta is ectatic. BONES AND SOFT TISSUES: No focal osseous lesions. Soft tissues are unremarkable. UPPER ABDOMEN: No free air under the diaphragm. Cholecystectomy clips are present. IMPRESSION: Bibasilar subsegmental atelectasis. Small foci of pneumonia cannot be excluded. Signed by: Dr. Star Yarbrough MD on 09/28/2018 1:51 PM Dictated By: STAR YARBROUGH MD 1351 Transcribed By: LIZETT on 09/28/18 1351 COPY TO: FLORENTIN NELSON MD CT ABDOMEN/PELVIS WO 2018-07-12 17:00:00 [place] [address] Patient Name: SUZANNE MORROW MR #: [id number] : 1950 Age/Sex: 67/F Req #: [id number] Adm Physician: Ordered by: JOHNNY LOVE MD Report #: [id number] Location: ER Room/Bed: Procedure: [id number] CT/CT ABDOMEN/PELVIS WO Exam Date: 07/12/18 Exam Time: 1600 REPORT STATUS: Signed EXAM: CT Abdomen and Pelvis WITHOUT contrast INDICATION: COMPARISON: None. TECHNIQUE: Abdomen and pelvis were scanned utilizing a multidetector helical scanner from the lung base to the pubic symphysis without administration of IV contrast. Absence of intravenous contrast decreases sensitivity for detection of focal lesions and vascular pathology. Coronal and sagittal reformations were obtained. Routine protocol was performed. IV CONTRAST: None ORAL CONTRAST: Gastrografin COMPLICATIONS: None RADIATION DOSE: Total DLP: 878.02 mGy*cm Estimated effective dose: (DLP x 0.015 x size factor) mSv CTDIvol has been reviewed. It is below the limits set by the Radiation Protocol Committee (RPC). FINDINGS: LINES and TUBES: None. LOWER THORAX: Dependent atelectasis. Increased peripheral lung markings, suggestive of fibrotic changes. HEPATOBILIARY: Diffuse hepatic steatosis, otherwise unenhanced liver is unremarkable. No biliary ductal dilation. GALLBLADDER: Surgically absent. SPLEEN: No splenomegaly. PANCREAS: Atrophic. No focal masses or ductal dilatation. ADRENALS: No adrenal nodules KIDNEYS/URETERS: No hydronephrosis. Limited for evaluation of renal parenchyma without intravenous contrast. No stones. GI TRACT: No abnormal distention, wall thickening, or evidence of bowel obstruction. There are diverticula within the colon without evidence of diverticulitis. Appendix is normal. PELVIC ORGANS/BLADDER: Unremarkable. LYMPH NODES: No lymphadenopathy. VESSELS: There is mild atherosclerotic disease in the aorta and major arterial branches. PERITONEUM / RETROPERITONEUM: No free air or fluid. BONES: Unremarkable. SOFT TISSUES: Unremarkable. IMPRESSION: 1. No definite evidence of acute inflammatory process in the abdomen/pelvis, considering limitations of unenhanced study. 2. Clonic diverticulosis without evidence of diverticulitis. 3. Diffuse hepatic steatosis. Signed by: Dr. Emeka Salazar MD on 07/12/2018 5:12 PM Dictated By: EMEKA SALAZAR MD 11 Transcribed By: LIZETT on 07/12/181711 COPY TO: JOHNNY LOVE MD MAMMOGRAPHY DIGITAL SCR [place] [address] Patient Name: SUZANNE MORROW MR #: [id number] : 1950 Age/Sex: 66/F Req #: [id number] Adm Physician: Ordered by: MANJULA CONSTANTINO Report #: [id number] Location: [facility] Room/Bed: Procedure: [id number] MG/MAMMOGRAPHY DIGITAL SCR BILAT Exam Date: 09/12/17 Exam Time: 1309 REPORT STATUS: Signed #[id number] - [id number] #BILATERAL DIGITAL SCREENING MAMMOGRAM WITH CAD: 09/12/2017 CLINICAL: Routine screening. Comparison is made to exams dated: 01/27/2015 mammogram and 07/08/2013 mammogram - [facility]. Current study contains 4 films. The tissue of both breasts is heterogeneously dense. This may lower the sensitivity of mammography. Current study was also evaluated with a Computer Aided Detection (CAD) system. There are benign calcifications in both breasts. No significant masses, calcifications, or other findings are seen in either breast. There has been no significant interval change. IMPRESSION: BENIGN There is no mammographic evidence of malignancy. A 1 year screening mammogram is recommended. The patient will be notified by letter of the results. Dr. Azam Herron MD rs/santos:09/25/2017 19:34:14 [employer]: Noreen YOO(R)(M), [facility] letter sent: Compared to Prior B9 Mammogram BI- RADS: 2 Benign Dictated By: AZAM HERRON MD 33 Transcribed By: SANTOS on 09/25/171933 COPY TO: MANJULA CONSTANTINO
[2018-09-28] MEDS ORDERED: HYDROCODONE/APAP 7.5MG-325MG 1 EA TAB PO PRN (17:15)
[2018-09-28] MEDS: FAMOTIDINE 20 MG/2 ML VIAL IV SCH (17:26)
[2018-09-28] MEDS: INSULIN LISPRO 100 UNIT/1 ML 3ML VIAL SQ SCH ×2 (17:29→21:32)
[2018-09-28] MEDS: CEFTRIAXONE SOD 1 GM/NS 50 ML 50 ML IV SCH (18:15)
--- NOTE | 2018-09-28 19:18 | NUR ---
REPORT GIVEN TO GABINO BAKER YARN POLISHING MACHINE OPERATOR NURSE.
--- NOTE | 2018-09-28 20:15 | NUR ---
received patient to room. aaox3, yi speaking. denies pain. breathing non-labored. no home med list with patient, unable to update med rec for this reason. ambulates with standby assist, and cane. skin intact. no needs voiced at this time. updated patient on plan of care. bed locked, lowest position, call light within reach, and bed alarm activated.
[2018-09-28 20:59] VITALS: BP 181/106
[2018-09-28 21:00] VITALS: BP 181/106
[2018-09-28] MEDS ORDERED: SODIUM CHLORIDE 0.9% 250ML 250 ML ONE (22:00)
[2018-09-28 23:04] LABS: CREATINE KINASE MB 0.5 ng/mL (0-5.0)
[2018-09-29] MEDS: HYDRALAZINE HCL 20 MG/ML VIAL IV PRN (01:00)
[2018-09-29] MEDS: ENOXAPARIN SODIUM INJ 100 MG/ML SYR SC SCH ×2 (03:25→16:15)
[2018-09-29 03:34] LABS: BASOPHILS # (AUTO) 0.1 (0.0-0.1); BASOPHILS % 0.5 % (0.0-1.0); EOSINOPHILS # (AUTO) 0.4 (0.0-0.4); EOSINOPHILS % 3.6 % (0.0-6.0); HEMATOCRIT 35.8 % (34.2-44.1); HEMOGLOBIN 11.9 g/dL (12.0-16.0); LYMPHOCYTES # (AUTO) 1.6 (1.0-3.2); LYMPHOCYTES % 15.6 % (18.0-39.1); MEAN CORPUSCULAR HEMOGLOBIN 32.5 pg (28-32); MEAN CORPUSCULAR HGB CONC 33.2 g/dL (31-35); MEAN CORPUSCULAR VOLUME 97.8 fL (81-99); MONOCYTES # (AUTO) 0.8 (0.2-0.8); MONOCYTES % 8.2 % (4.4-11.3); NEUTROPHILS # (AUTO) 7.4 (2.1-6.9); NEUTROPHILS % 71.6 % (38.7-80.0); PLATELET COUNT 239 x10e3/uL (140-360); RED BLOOD COUNT 3.66 x10e6/uL (3.6-5.1)
[2018-09-29] MEDS: ACETAMINOPHEN 325 MG TAB PO PRN ×2 (03:36→13:30)
[2018-09-29 03:51] LABS: ALANINE AMINOTRANSFERASE 18 IU/L (0-55); ALBUMIN/GLOBULIN RATIO 0.9 (0.8-2.0); ALKALINE PHOSPHATASE 77 IU/L (40-150); ANION GAP 13.1 mmol/L (8-16); BLOOD UREA NITROGEN 7 mg/dL (7-26); BUN/CREATININE RATIO 10 (6-25); CALCIUM 8.9 mg/dL (8.4-10.2); CARBON DIOXIDE 21 mmol/L (22-29); CHLORIDE 109 mmol/L (98-107); CHOL/HDL RATIO 3.6 (3.0-3.6); CHOLESTEROL 113 MD/DL (0-199); CREATININE, SERUM 0.69 mg/dL (0.57-1.11); EST GLOMERULAR FILTRATION RATE > 60 ML/MIN (60-); GLUCOSE 148 mg/dL (74-118); HDL CHOLESTEROL 31 MG/DL (40-60); LDL CHOLESTEROL 52 MG/DL (60-130); POTASSIUM 3.1 mmol/L (3.5-5.1); SODIUM 140 mmol/L (136-145); TRIGLYCERIDES 148 MG/DL (0-149)
[2018-09-29 04:05] LABS: CREATINE KINASE MB 0.4 ng/mL (0-5.0)
[2018-09-29 04:12] LABS: FREE T4 (FREE THYROXINE) 0.86 ng/dL (0.9-1.8); THYROID STIMULATING HORMONE 2.582 uIU/mL (0.350-4.940)
[2018-09-29] MEDS: FAMOTIDINE 20 MG/2 ML VIAL IV SCH ×2 (04:30→17:08)
[2018-09-29] MEDS: CEFTRIAXONE SOD 1 GM/NS 50 ML 50 ML IV SCH ×2 (04:30→17:08)
[2018-09-29] MEDS: LEVOTHYROXINE SODIUM 112 MCG TAB PO SCH (05:11)
[2018-09-29] MEDS: GENTAMICIN 80MG/NS 100 ML 100 ML IV SCH ×3 (05:11→21:32)
[2018-09-29] MEDS ORDERED: POTASSIUM CHLORIDE 20 MEQ TAB CR PO STA (06:07)
[2018-09-29 06:43] VITALS: BP 153/76
[2018-09-29] MEDS: METOCLOPRAMIDE HCL 10 MG/2ML VIAL IV SCH ×4 (08:30→21:31)
[2018-09-29] MEDS: INSULIN LISPRO 100 UNIT/1 ML 3ML VIAL SQ SCH ×4 (08:30→21:31)
[2018-09-29] MEDS ORDERED: HYDROXYCHLOROQUINE SULFATE 200 MG TAB PO SCH (09:00)
[2018-09-29] MEDS ORDERED: SULFASALAZINE 500 MG TAB PO SCH (09:00)
[2018-09-29] MEDS ORDERED: FENOFIBRATE 145 MG TAB PO SCH (09:00)
--- NOTE | 2018-09-29 09:09 | Consultation ---
DATE OF CONSULTATION: September 29, 2018 REASON FOR CONSULTATION: Chest pain. CONSULTING PHYSICIAN: Dr. Roel Jaime's nurse practitioner. HPI: This is a pleasant 67-year-old female that presented with shortness of breath. According to the patient, for the last 2 days she has been having shortness of breath at the center of her chest on a scale of 5/10 that radiated to the left shoulder and left arm. She stated the pain started while she was at rest watching TV that she decided to come to the emergency room for evaluation. She also stated she had a history of pulmonary emboli, they had to do a chest surgery on her to remove the blood clot at [facility]. She denied any palpitation, any diaphoresis, any headache, nausea or vomiting. Troponin x3 was negative. EKG showed sinus rhythm with no ST abnormalities. Her BNP was normal. D-dimer was positive. PAST MEDICAL HISTORY: Hypertension, diabetes, pulmonary emboli, hyperlipidemia, severe osteoarthritis, hypothyroidism. PAST SURGICAL HISTORY: Right knee surgery, cholecystectomy, and some kind of thoracic surgery to remove blood clot from her lungs. FAMILY HISTORY: Positive for diabetes and hypertension. SOCIAL HISTORY: She lives at home alone. No smoking, no drinking. MEDICATIONS: See med list. ALLERGIES: SHE IS ALLERGIC TO IODINE AND PENICILLIN. REVIEW OF THE SYSTEMS: Negative except those mentioned above. PHYSICAL EXAMINATION: VITAL SIGNS: Temperature 97, heart rate 97, blood pressure 153/76, respirations 19, oxygen saturation 97% on 2 liters nasal cannula. GENERAL: She is awake, alert, and oriented x3. HEENT: Mucous membranes moist. NECK: Supple. LUNGS: Bilaterally clear to auscultation. CARDIOVASCULAR: S1 and S2 present. ABDOMEN: Soft. NEUROLOGICAL: Intact. EXTREMITIES: With no edema. LABS: Sodium 140, potassium 3.1, chloride 109, CO2 21, BUN 7, creatinine 0.69, glucose 148. White blood cell 10.2, hemoglobin 11.9, hematocrit 35.8, platelet 239,000. PT 13.4, PTT 27.2, INR 0.94. IMPRESSION: 1. Chest pain. 2. Elevated D-dimer. 3. Hypertension. 4. Hyperlipidemia. 5. Hypothyroidism. 6. Hypokalemia. 7. History of pulmonary emboli. 8. History of osteoarthritis. 9. Urinary tract infection. ASSESSMENT AND PLAN: 1. Troponin x3 was negative. 2. Due to the elevated D-dimer, will go ahead and get a V/Q scan. SHE IS ALLERGIC TO IODINE FOR CTA. 3. Pending echo to assess the LV and the valve function. 4. Will continue her home medications. 5. Potassium has been replaced. Further cardiac workup pending clinical course. Thank you for this consultation. Dictated by: Donny Molina NP Job#: [id number]
[2018-09-29 09:30] VITALS: BP 159/74
[2018-09-29] MEDS: PANTOPRAZOLE SOD 40 MG TABEC PO SCH (09:30)
[2018-09-29] MEDS: FOLIC ACID 1 MG TAB PO SCH (09:30)
[2018-09-29] MEDS: LOSARTAN POTASSIUM 100 MG TAB PO SCH (09:30)
[2018-09-29] MEDS: HYDROCHLOROTHIAZIDE 25 MG TAB PO SCH (09:30)
[2018-09-29] MEDS: ASPIRIN 81 MG ENTERIC COATED PO SCH (09:30)
[2018-09-29] MEDS: PREDNISONE 5 MG TAB PO SCH (09:30)
--- NOTE | 2018-09-29 10:25 | NUR ---
WHEELED OFF UNIT VIA FOR VQ SCAN, NO CHANGE IN CONDITION Addendum: 09/29/18 at 1052 by Marlen Liu RN [id number] WHEELED OFF UNIT
--- NOTE | 2018-09-29 10:52 | NUR ---
BACK IN ROOM, STANDBY ASSIST TO BR
[2018-09-29 12:31] VITALS: BP 153/68
--- NOTE | 2018-09-29 13:47 | NUR ---
NEW 20G TO R HAND, PT TOLERATED WELL, CALL LIGHT WITHIN REACH
--- NOTE | 2018-09-29 14:34 | Diagnostic Imaging Report ---
Ventilation/perfusion lung scan Clinical Information: 67 F with SOB x 48 hours; history of PE requiring surgical removal of clot from lungs. Comparison: CXR single view 09/28/2018; Doppler US LE 09/28/2018 Discussion: Xenon-133 gas 13 mCi was administered via inhalation. Dynamic images of the lungs in the posterior projection were obtained through single breath, equilibrium, and washout phases. Distribution of tracer activity appears physiologic throughout the lungs.. There are no segmental ventilatory defects. Washout of tracer is diffusely delayed with no evidence of air trapping. Perfusion images of the lungs were obtained in multiple projections following intravenous administration of approximately 5 mCi of Tc-99m MAA. Distribution of tracer appears physiologic throughout the lungs. The contours of the lungs are well demarcated. There are no segmental perfusion defects of any size. The cardiomediastinal silhouette is borderline enlarged. Impression: Scan findings represent a VERY LOW probability for acute pulmonary embolic disease based on the PIOPED II criteria. Mild obstructive lung disease may be present. Borderline enlarged cardiac silhouette. Signed by: Dr. Noreen Luciano M.D. on 09/29/2018 2:30 PM
[2018-09-29 17:32] VITALS: BP 149/73
--- NOTE | 2018-09-29 18:45 | NUR ---
VOICES NO NEEDS AT THIS TIME, CALL LIGHT WITHIN REACH
[2018-09-29 20:00] VITALS: BP 134/70
--- NOTE | 2018-09-29 20:00 | NUR ---
pt received. pt assessed. no ss of distress noted. no co pain at time. tele in place. will cont to follow poc. call woody within reach.
[2018-09-29] MEDS: HYDROXYCHLOROQUINE SULFATE 200 MG TAB PO SCH (21:31)
[2018-09-29] MEDS: SULFASALAZINE 500 MG TAB PO SCH (21:31)
[2018-09-29] MEDS: FENOFIBRATE 145 MG TAB PO SCH (21:31)
[2018-09-30] VITALS (7 sets, daily range): BP systolic 131–164; BP diastolic 61–82
[2018-09-30] MEDS: HYDRALAZINE HCL 20 MG/ML VIAL IV PRN (01:09)
[2018-09-30] MEDS: ENOXAPARIN SODIUM INJ 100 MG/ML SYR SC SCH ×2 (03:10→15:15)
[2018-09-30] MEDS: ACETAMINOPHEN 325 MG TAB PO PRN ×3 (03:46→20:09)
[2018-09-30] MEDS: CEFTRIAXONE SOD 1 GM/NS 50 ML 50 ML IV SCH ×2 (03:46→16:00)
[2018-09-30] MEDS: FAMOTIDINE 20 MG/2 ML VIAL IV SCH ×2 (03:46→17:25)
--- NOTE | 2018-09-30 04:28 | NUR ---
pt resting. no distress noted. call woody within reach.
[2018-09-30] MEDS: LEVOTHYROXINE SODIUM 112 MCG TAB PO SCH (05:37)
[2018-09-30] MEDS: GENTAMICIN 80MG/NS 100 ML 100 ML IV SCH (05:37)
[2018-09-30 05:42] LABS: BASOPHILS # (AUTO) 0.1 (0.0-0.1); BASOPHILS % 0.5 % (0.0-1.0); EOSINOPHILS # (AUTO) 0.3 (0.0-0.4); EOSINOPHILS % 2.8 % (0.0-6.0); HEMATOCRIT 35.7 % (34.2-44.1); HEMOGLOBIN 11.9 g/dL (12.0-16.0); LYMPHOCYTES # (AUTO) 1.4 (1.0-3.2); LYMPHOCYTES % 13.5 % (18.0-39.1); MEAN CORPUSCULAR HEMOGLOBIN 32.5 pg (28-32); MEAN CORPUSCULAR HGB CONC 33.3 g/dL (31-35); MEAN CORPUSCULAR VOLUME 97.5 fL (81-99); MONOCYTES # (AUTO) 0.9 (0.2-0.8); MONOCYTES % 8.6 % (4.4-11.3); NEUTROPHILS # (AUTO) 7.9 (2.1-6.9); NEUTROPHILS % 73.9 % (38.7-80.0); PLATELET COUNT 265 x10e3/uL (140-360); RED BLOOD COUNT 3.66 x10e6/uL (3.6-5.1); RED CELL DISTRIBUTION WIDTH 16.3 % (11.7-14.4)
[2018-09-30 06:09] LABS: ANION GAP 13.7 mmol/L (8-16); BLOOD UREA NITROGEN 10 mg/dL (7-26); BUN/CREATININE RATIO 11 (6-25); CALCIUM 9.2 mg/dL (8.4-10.2); CARBON DIOXIDE 23 mmol/L (22-29); CHLORIDE 107 mmol/L (98-107); CREATININE, SERUM 0.87 mg/dL (0.57-1.11); EST GLOMERULAR FILTRATION RATE > 60 ML/MIN (60-); GLUCOSE 339 mg/dL (74-118); POTASSIUM 3.7 mmol/L (3.5-5.1); SODIUM 140 mmol/L (136-145)
[2018-09-30] MEDS ORDERED: LANTUS 3ML100 UNITS/ SQ (07:04)
--- NOTE | 2018-09-30 07:05 | NUR ---
spoke to vipul lizarraga in regards to lab results. oncoming nurse notified.
[2018-09-30] MEDS: METOCLOPRAMIDE HCL 10 MG/2ML VIAL IV SCH ×4 (07:30→21:20)
[2018-09-30] MEDS: PANTOPRAZOLE SOD 40 MG TABEC PO SCH (08:30)
[2018-09-30] MEDS: INSULIN LISPRO 100 UNIT/1 ML 3ML VIAL SQ SCH ×4 (08:30→21:20)
[2018-09-30] MEDS: FOLIC ACID 1 MG TAB PO SCH (09:37)
[2018-09-30] MEDS: LOSARTAN POTASSIUM 100 MG TAB PO SCH (09:37)
[2018-09-30] MEDS: ASPIRIN 81 MG ENTERIC COATED PO SCH (09:37)
[2018-09-30] MEDS: HYDROXYCHLOROQUINE SULFATE 200 MG TAB PO SCH ×2 (09:37→21:20)
[2018-09-30] MEDS: SULFASALAZINE 500 MG TAB PO SCH ×2 (09:37→21:20)
[2018-09-30] MEDS: HYDROCHLOROTHIAZIDE 25 MG TAB PO SCH (09:37)
[2018-09-30] MEDS: AMLODIPINE BESYLATE 10 MG TAB PO SCH (09:37)
[2018-09-30] MEDS: PREDNISONE 5 MG TAB PO SCH (09:37)
--- NOTE | 2018-09-30 09:40 | NUR ---
STANDBY ASSIST TO BR, VOIDING WITHOUT DIFFICULTY, STANDBY ASSIST BACK TO SIT ON SIDE OF BED, BREAKFAST TRAY SET UP, MEDICATED FOR "ARTHRITIS , 03/09" , EDUCATED TO NOT GET UP WITHOUT CALLING FOR ASSISTANCE, PT VERBALIZED UNDERSTANDING, CALL LIGHT WITHIN REACH
[2018-09-30] MEDS ORDERED: MORPHINE SULFATE INJ 4 MG/ML INJ IV PRN (11:15)
--- NOTE | 2018-09-30 14:00 | NUR ---
SITTING ON BS COUCH, VOICES NO NEEDS AT THIS TIME, CALL LIGHT WITHIN REACH
--- NOTE | 2018-09-30 19:00 | NUR ---
received patient ambulating room with cane, steady gait. no needs voiced at this time. patient in stable condition. encouraged to call for assistance when patient, patient verbalized understanding. bed locked and in lowest position. call light in reach.
[2018-09-30] MEDS ORDERED: INSULIN DETEMIR 100 UNIT/ML PEN SQ SCH (21:00)
[2018-09-30] MEDS: FENOFIBRATE 145 MG TAB PO SCH (21:20)
[2018-10-01] VITALS (7 sets, daily range): BP systolic 120–161; BP diastolic 58–86
[2018-10-01 03:26] LABS: BASOPHILS # (AUTO) 0.1 (0.0-0.1); BASOPHILS % 0.5 % (0.0-1.0); EOSINOPHILS # (AUTO) 0.3 (0.0-0.4); HEMATOCRIT 36.4 % (34.2-44.1); HEMOGLOBIN 12.1 g/dL (12.0-16.0); LYMPHOCYTES # (AUTO) 1.3 (1.0-3.2); LYMPHOCYTES % 11.8 % (18.0-39.1); MEAN CORPUSCULAR HEMOGLOBIN 32.5 pg (28-32); MEAN CORPUSCULAR HGB CONC 33.2 g/dL (31-35); MEAN CORPUSCULAR VOLUME 97.8 fL (81-99); MONOCYTES # (AUTO) 0.8 (0.2-0.8); MONOCYTES % 7.5 % (4.4-11.3); NEUTROPHILS # (AUTO) 8.5 (2.1-6.9); NEUTROPHILS % 76.5 % (38.7-80.0); PLATELET COUNT 272 x10e3/uL (140-360); RED BLOOD COUNT 3.72 x10e6/uL (3.6-5.1); RED CELL DISTRIBUTION WIDTH 15.9 % (11.7-14.4)
[2018-10-01] MEDS: ENOXAPARIN SODIUM INJ 100 MG/ML SYR SC SCH ×2 (03:30→15:15)
[2018-10-01] MEDS: FAMOTIDINE 20 MG/2 ML VIAL IV SCH ×2 (03:30→16:16)
[2018-10-01] MEDS: CEFTRIAXONE SOD 1 GM/NS 50 ML 50 ML IV SCH (03:31)
[2018-10-01] MEDS: ACETAMINOPHEN 325 MG TAB PO PRN ×2 (03:31→15:22)
[2018-10-01 03:42] LABS: ANION GAP 14.5 mmol/L (8-16); CALCIUM 9.8 mg/dL (8.4-10.2); CREATININE, SERUM 0.93 mg/dL (0.57-1.11); POTASSIUM 3.5 mmol/L (3.5-5.1)
[2018-10-01] MEDS ORDERED: NORVASC10 MG PO (05:09)
[2018-10-01] MEDS ORDERED: REGLAN10 MG PO (05:09)
[2018-10-01] MEDS ORDERED: PANTOPRAZOLE SO40 MG PO (05:09)
[2018-10-01] MEDS ORDERED: CEFTIN PO (05:09)
[2018-10-01] MEDS ORDERED: HUMALOG100 UNIT/1 SC (05:25)
[2018-10-01] MEDS: LEVOTHYROXINE SODIUM 112 MCG TAB PO SCH (06:10)
--- NOTE | 2018-10-01 07:00 | NUR ---
Handoff report and walking rounds with outgoing warehouse worker 2nd shift nurse. Pt AOx3, able to verbalize needs in lithuanian. Pt denies any c/o at this time.
--- NOTE | 2018-10-01 08:11 | NUR ---
Call placed to Emerson Bass PIANO MECHANIC APPRENTICE to inform of ESBL of urine. Voice message left. Awaiting call back.
[2018-10-01] MEDS: AMLODIPINE BESYLATE 10 MG TAB PO SCH (08:30)
[2018-10-01] MEDS: SULFASALAZINE 500 MG TAB PO SCH (08:30)
[2018-10-01] MEDS: PREDNISONE 5 MG TAB PO SCH (08:30)
[2018-10-01] MEDS: HYDROCHLOROTHIAZIDE 25 MG TAB PO SCH (08:30)
[2018-10-01] MEDS: ASPIRIN 81 MG ENTERIC COATED PO SCH (08:30)
[2018-10-01] MEDS: FOLIC ACID 1 MG TAB PO SCH (08:30)
[2018-10-01] MEDS: METOCLOPRAMIDE HCL 10 MG/2ML VIAL IV SCH ×3 (08:30→16:16)
[2018-10-01] MEDS: HYDROXYCHLOROQUINE SULFATE 200 MG TAB PO SCH (08:30)
[2018-10-01] MEDS: PANTOPRAZOLE SOD 40 MG TABEC PO SCH (08:30)
[2018-10-01] MEDS: LOSARTAN POTASSIUM 100 MG TAB PO SCH (08:30)
--- NOTE | 2018-10-01 08:48 | NUR ---
Manager Of Financial Planning called and made aware of pt new isolation status of ESBL of urine.
[2018-10-01] MEDS: INSULIN LISPRO 100 UNIT/1 ML 3ML VIAL SQ SCH ×2 (08:49→12:00)
--- NOTE | 2018-10-01 09:03 | NUR ---
Verbal orders received from Yeni Bass NP to consent the patient for PICC line placement for fci IV antibiotics and to arrange Merrem 500mg Q8H for 2 weeks, then discontinue PICC.
[2018-10-01 09:45] LABS: INR 0.98; PROTHROMBIN TIME 13.9 seconds (11.9-14.5)
--- NOTE | 2018-10-01 10:55 | NUR ---
CM MET WITH PT IN ROOM USING WELDING PANTOGRAPH MACHINE OPERATOR PT [place] ALONE HER NEICE COMES OVER EVERY MORNING AND ASSISTS HER WITH ADL'S USES A CANE PT HAS BROTHERS WHO COME OVER IN THE EVENING TO HELP NO HOME HEALTH UA CX ESBL ORDERS TO ARRANGE HOME IV MERREM X 14 DAYS Q 8 HRS PT TO GET PICC LINE TODAY CHOICE LETTER SIGNED FOR [facility] PH: [phone] FAX: [phone] SPOKE WITH CANDI VILLAGRAN AT [place]: [phone] CANDI WILL [facility] FAXED CLINICAL; CONFIRMATION REC'D IMM GIVEN IN TOGOLESE SIGNED AND ON CHART COPY TO PT CANDI WILL COME DO TEACH WHILE IN HOSPITAL PLAN DC HOME TODAY AFTER FIRST DOSE OF MERREM GIVEN AND PICC LINE INSERTED PT'S NURSE VIRIDIANA AWARE OF PLAN
--- NOTE | 2018-10-01 11:24 | NUR ---
Pt off unit at this time, transferred to 210.
--- NOTE | 2018-10-01 11:26 | NUR ---
RCD PT FROM MED SURG 1 BY WHEEL CHAIR PT IS ALERT AND ORIENTED VITALS CHECKED PT RESTING ON BED BED LOW AND LOCKED CALL LIGHT IN REACH
[2018-10-01] MEDS ORDERED: MEROPENEM 500MG 500 MG in SODIUM CHLORIDE 0.9% 50ML 50 ML IV ONE (12:45)
[2018-10-01] MEDS ORDERED: MEROPENEM 500MG/ NS 50ML 50 ML IV ONE (13:00)
--- NOTE | 2018-10-01 13:15 | Diagnostic Imaging Report ---
EXAMINATION: CHEST XRAY LINE PLACEMENT INDICATION: Line placement. COMPARISON: Chest radiograph 09/28/2018. FINDINGS: TUBES and LINES: Right-sided PICC with catheter tip terminating at the expected location of the lower SVC.. LUNGS: Moderate lung volumes. Mild patchy bibasilar atelectasis. No evidence of lobar consolidation or pulmonary edema. PLEURA: No pleural effusion or pneumothorax. HEART AND MEDIASTINUM: The cardiomediastinal silhouette is unchanged. BONES AND SOFT TISSUES: No acute osseous lesion. Soft tissues are unremarkable. UPPER ABDOMEN: No free air under the diaphragm. IMPRESSION: Interval placement of right-sided PICC which terminates at the expected location of the cavoatrial junction. Mild patchy bibasilar opacities, likely atelectasis. Signed by: Dr. Shelbi Biswas MD on 10/01/2018 1:11 PM
[2018-10-01] MEDS ORDERED: NIFEDIPINE CR 30 MG TAB PO SCH ×2 (14:00→14:57)
--- NOTE | 2018-10-01 14:15 | NUR ---
CALL FROM CANDI AT [place] STATING PT'S [facility] POLICY TERMED OF 09/29 MADDISON SPOKE WITH PT USING [employer]DER; SHE STATES THAT SHE SIGNED UP FOR [facility] MCR (SAME POLICY) LAST WEEK AT HER HOME RELAYED THIS INFORMATION TO CANDI AND SHE IS PURSUING FURTHER FAXED NEW IV ABX ORDERS TO CANDI, MERREM IV Q 6 HRS X 2 WEEKS NURSE KATHIE UPDATED WILL DC WHEN INSURANCE CONFIRMED ZOHREH WRIGHT
--- NOTE | 2018-10-01 15:12 | NUR ---
Received call from Kelli with [employer] and was informed that [place] called [facility] to confirm benefits. They were told they do not see any current benefits. Pt has a Medicaid plan. Kelli will forward referral to [facility], who takes Medicaid.
--- NOTE | 2018-10-01 15:48 | NUR ---
Received call from Radha with [employer]. She stated that pt's Medicaid plan is a QMB plan and that does not have any infusion benefits. Spoke with Kelli again. She will have office check with [facility] again in AM. She will also get a self pay figueroa for Merrem. MADDISON updated DI Jaime.
[2018-10-01] MEDS ORDERED: INSULIN LISPRO 100 UNIT/1 ML 3ML VIAL SQ SCH ×2 (16:30→21:00)
--- NOTE | 2018-10-01 16:53 | NUR ---
PAGED AND NOTIFIED THE BLOOD SUGAR ZOHREH SEVILLA GOT NEW ORDERS
--- NOTE | 2018-10-01 17:30 | NUR ---
INSTRUCTIONS GIVEN BY EDUIN REGARDING PO ANTIBIOTICS INSURANCE NOT APPROVING THE IV ANTIBIOTIC SO DC PICC LINE SHE AGREED SHE SAID SHE UNDERSTOOD THAT
--- NOTE | 2018-10-01 17:30 | NUR ---
ZOHREH SEVILLA MADE THE CALL AND ORDERED DC PICC LINE SHE GOING TO DC PT WITH PO ANTIBIOTICS
--- NOTE | 2018-10-01 17:45 | NUR ---
DC PICC LINE BY ORDER NO BLEEDING NOTED
[2018-10-01] MEDS ORDERED: MACROBID 100 M100 MG PO (17:51)
--- NOTE | 2018-10-01 17:58 | Discharge Summary ---
ADMISSION DIAGNOSES 1. Urinary tract infection. 2. Chest pain. 3. Hypertension. 4. Hyperlipidemia. 5. Hypothyroidism. 6. Osteoarthritis. 7. Gastroesophageal reflux disease. 8. Type 2 diabetes. 9. Hypokalemia. DISCHARGE DIAGNOSES 1. Urinary tract infection. 2. Chest pain. 3. Hypertension. 4. Hyperlipidemia. 5. Hypothyroidism. 6. Osteoarthritis. 7. Gastroesophageal reflux disease. 8. Type 2 diabetes. 9. Hypokalemia. 10. Extended spectrum beta-lactamase of the urine. 11. Ruled out flu. 12. Hyponatremia. 13. Ruled out pulmonary embolism. HISTORY: Patient has a history of hypertension, hyperlipidemia, hypothyroidism, osteoarthritis, GERD, type 2 diabetes. SURGICAL HISTORY: Right knee surgery, appendectomy and bilateral cataract surgery. FAMILY HISTORY: The patient's brother and mother have diabetes. SOCIAL HISTORY: Noncontributory. HOSPITAL COURSE: A 67-year-old female complains of sharp, constant central chest pain that radiates to her left shoulder and arm that began while watching TV 2 days ago. She denies shortness of breath, diaphoresis, hematuria, dysuria, and fever. Pain was improved with meds in the ER and worsened by nothing. On admission, the patient had an EKG that showed normal sinus rhythm. BNP of 70. Troponins were negative times 3. Echo showed an EF of 60%. Chest x-ray showed bibasilar subsegmental atelectasis. V/Q scan was done due to an elevated D-dimer. V/Q scan was negative. Patient's urine came back positive for ESBL. She was started on Rocephin initially, but then switched to Merrem after the culture came back. Per case management, the patient's insurance does not pay for SNF, and will also not cover IV antibiotics at home. Per the sensitivity report, the only p.o. antibiotic that will work is Macrobid. The patient will discharge home with 2 weeks of p.o. Macrobid. She was instructed to follow up with primary care in 1 week, and repeat a UA and culture. Vital signs are stable. Patient afebrile. She will discharge home with a new prescription for Norvasc, Reglan, Protonix, and Macrobid. Patient understands instructions and agrees to plan. DICTATED BY ZOHREH BONILLA NP CHRISTIANO KUMAR MD Job#: [id number] [place]
[2018-10-01] MEDS ORDERED: MEROPENEM 500MG 500 MG in SODIUM CHLORIDE 0.9% 50ML 50 ML IV SCH (18:00)
--- NOTE | 2018-10-01 18:00 | NUR ---
CHECKED PICC LINE SITE NO BLEEDING NOTED
--- NOTE | 2018-10-01 18:15 | NUR ---
WENT TO THE PTS ROOM WITH CATHY SHE TRANSLATED THE MATTER GIVEN PRESCRIPTION NEED THE GRADUATE ASSISTANT MEDICATION FROM DEEPALIRACHEL FOR 2 WEEKS FOLLOW UP WITH PCP AFTER ONE WEEK AND DO THE URINE CS THAT TIME PT SAID SHE UNDERSTOOD EVERYTHING
--- NOTE | 2018-10-01 18:34 | NUR ---
PICC LINE SITE CHECKED
--- NOTE | 2018-10-01 18:41 | NUR ---
PT WAITING TO RIDE BED SIDE REPORT GIVEN TO ONCOMING NURSE
--- NOTE | 2018-10-01 20:00 | NUR ---
Patient transported to private auto via W/C. Patient already signed discharge papers and vascular access removed by day shift nurse. Patient in stable condition.
== END 2018-10-01 20:10 | disposition home or self-care (01) ==
LOC: ER 12:32 → ERHOLD 16:48 → MED/SURG 20:42 → MED/SURG2 10-01 11:24
PROVIDERS: ADMIT Internal Medicine; ATTEND Internal Medicine
DX: N39.0 Urinary tract infection, site not specified (principal); B96.20 Unspecified Escherichia coli [E. coli] as the cause of diseases classified elsewhere; Z16.12 Extended spectrum beta lactamase (ESBL) resistance; I10 Essential (primary) hypertension; E78.5 Hyperlipidemia, unspecified; E03.9 Hypothyroidism, unspecified; K21.9 Gastro-esophageal reflux disease without esophagitis; E87.1 Hypo-osmolality and hyponatremia; E11.9 Type 2 diabetes mellitus without complications; M19.90 Unspecified osteoarthritis, unspecified site; E87.6 Hypokalemia; Z86.711 Personal history of pulmonary embolism; Z79.01 Long term (current) use of anticoagulants; J98.11 Atelectasis
CPT/HCPCS: 36415 ×4; 36569 ×2; 71045; 71046; 78582; 80048 ×2; 80053 ×2; 80061; 81001; 82550 ×2; 82553 ×2; 82948 ×4; 83036; 83735 ×2; 83880; 84439; 84443; 84484 ×2; 85025 ×4; 85379; 85610 ×2; 85730; 87086; 87186; 87400; 93005; 93306; 93971; 96367; 96372; 96375; 96376; 99284; A9540; A9558; G0378 ×4; J0360 ×2; J0696 ×4; J1580 ×2; J1650 ×4; J2270; J2405; J2765 ×3; J7030; J7050; J7512 ×3; S0164 ×3; J2185

== ENCOUNTER → 2018-10-28 | Outpatient (CLI) | payer MEDICARE ==
[~2018-10-28] MED LIST changes: +CEFTIN PO; +HUMALOG100 UNIT/1 SC; +LANTUS 3ML100 UNITS/ SQ; +MACROBID 100 M100 MG PO; +NORVASC10 MG PO; +PANTOPRAZOLE SO40 MG PO; +REGLAN10 MG PO
== END ==
LOC: MAMMO 12:23
PROVIDERS: ATTEND Internal Medicine Endocrinology, Diabetes & Metabolism
DX: Z12.31 Encounter for screening mammogram for malignant neoplasm of breast (principal)
CPT/HCPCS: 77067

== ENCOUNTER 2020-06-21 06:10 | Observation (INO) | payer MEDICARE, OTHER ==
[2020-06-16 15:42] LABS: BASOPHILS # (AUTO) 0.1 (0.0-0.1); BASOPHILS % 0.6 % (0.0-1.0); EOSINOPHILS # (AUTO) 0.3 (0.0-0.4); EOSINOPHILS % 2.5 % (0.0-6.0); HEMATOCRIT 42.9 % (34.2-44.1); HEMOGLOBIN 13.7 g/dL (12.0-16.0); LYMPHOCYTES # (AUTO) 2.2 (1.0-3.2); LYMPHOCYTES % 17.9 % (18.0-39.1); MEAN CORPUSCULAR HEMOGLOBIN 30.9 pg (28-32); MEAN CORPUSCULAR HGB CONC 31.9 g/dL (31-35); MEAN CORPUSCULAR VOLUME 96.6 fL (81-99); MONOCYTES # (AUTO) 0.7 (0.2-0.8); NEUTROPHILS % 72.3 % (38.7-80.0); PLATELET COUNT 265 x10e3/uL (140-360); RED BLOOD COUNT 4.44 x10e6/uL (3.6-5.1); RED CELL DISTRIBUTION WIDTH 14.8 % (11.7-14.4)
[2020-06-16 16:08] LABS: ANION GAP 15.8 mmol/L (8-16); BLOOD UREA NITROGEN 16 mg/dL (7-26); BUN/CREATININE RATIO 21 (6-25); CALCIUM 9.3 mg/dL (8.4-10.2); CARBON DIOXIDE 23 mmol/L (22-29); CHLORIDE 105 mmol/L (98-107); CREATININE, SERUM 0.78 mg/dL (0.57-1.11); EST GLOMERULAR FILTRATION RATE > 60 ML/MIN (60-); GLUCOSE 125 mg/dL (74-118); POTASSIUM 3.8 mmol/L (3.5-5.1); SODIUM 140 mmol/L (136-145)
--- NOTE | 2020-06-16 16:26 | Diagnostic Imaging Report ---
EXAMINATION: CHEST 2 VIEWS INDICATION: Pre-operative COMPARISON: Chest radiograph 10/01/2018 FINDINGS: LINES/TUBES:None LUNGS:The lungs are well-inflated. No focal consolidation or pulmonary edema. PLEURA:No pleural effusion or pneumothorax. MEDIASTINUM:The cardiomediastinal silhouette appears normal in size and shape. BONES/SOFT TISSUES:No acute osseous injury. ABDOMEN:No free air under the diaphragm. IMPRESSION: No focal pneumonia or pulmonary edema. Signed by: Ramsey Cabrera MD on 06/16/2020 4:23 PM
[~2020-06-21] VITALS: Ht 167.6 cm; Wt 98.0 kg
[~2020-06-21 06:10] MED LIST changes: +ASPIRIN81 MG PO; +BASAGLAR K100 UNIT/1 SC; +CALCIUM600 MG PO; +FARXIGA10 MG PO; +LIPITOR10 MG PO; +METHOTREXATE2.5 MG PO; +NOVOLOG100 UNIT/1 SC; +VIT B6 PO
[2020-06-21] MEDS ORDERED: SODIUM CHLORIDE 0.9% 500ML 500 ML ONE (06:42)
[2020-06-21] MEDS ORDERED: VANCOMYCIN HCL 1,000 MG ONE (06:42)
[2020-06-21] MEDS ORDERED: TRANEXAMIC ACID 1,000 MG/10 ML ML ONE (06:43)
[2020-06-21] MEDS ORDERED: VANCOMYCIN 1GM/NS 250 ML 250 ML ONE (07:23)
[2020-06-21] MEDS ORDERED: CELECOXIB 200 MG CAP ONE (07:24)
[2020-06-21] MEDS ORDERED: GABAPENTIN 300 MG CAP ONE (07:24)
[2020-06-21] MEDS ORDERED: ROPIVACAINE 246.25 MG, EPINEPHRINE HCL 1:1000 1ML 0.5 MG, CLONIDINE HCL 0.08 MG, KETORO... INJ ONE ×5 (08:00)
[2020-06-21] MEDS ORDERED: DOCUSATE SODIUM 100 MG CAP PO PRN (09:30)
[2020-06-21] MEDS ORDERED: ONDANSETRON HCL INJ 2MG/ML 2ML 2 MG/ML VIAL IV PRN (09:30)
[2020-06-21] MEDS ORDERED: KETOROLAC TROMETHAMINE 30 MG/ML VIAL IV PRN (09:30)
[2020-06-21] MEDS ORDERED: ZOLPIDEM TARTRATE 5 MG TAB PO PRN (09:30)
[2020-06-21] MEDS ORDERED: DIPHENHYDRAMINE HCL INJ 50 MG/ML VIAL IV PRN (09:30)
[2020-06-21] MEDS ORDERED: HYDROCODONE/APAP 5MG-325MG TAB PO PRN (09:30)
[2020-06-21] MEDS ORDERED: ACETAMINOPHEN 650 MG SUPP PR PRN (09:30)
[2020-06-21] MEDS: VANCOMYCIN 1GM/NS 250 ML 250 ML IV SCH ×2 (09:30→21:30)
[2020-06-21] MEDS ORDERED: SODIUM CHLORIDE 0.9% 1000ML 1,000 ML IV SCH (09:30)
--- NOTE | 2020-06-21 10:18 | Diagnostic Imaging Report ---
Radiographs of the left knee - 2 views postop portable HISTORY: Pain COMPARISON: None available. FINDINGS: Bones: No acute displaced fracture. Osseous alignment is within normal limits. Joints: Patient status post left knee replacement with associated postsurgical change. The surgical hardware is intact without evidence of failure or loosening. Soft tissues: The soft tissues appear unremarkable. IMPRESSION: Patient status post left knee replacement with associated postsurgical change. The surgical hardware is intact without evidence of failure or loosening Signed by: Dr. Lucien Green M.D. on 06/21/2020 10:15 AM
[2020-06-21] MEDS ORDERED: FENTANYL CITRATE/PF 100MCG/2 ML INJ ONE ×2 (10:20→13:10)
--- NOTE | 2020-06-21 11:00 | NUR ---
RECEIVED PATIENT FROM PACU. PATIENT A/O X3, EVEN RESPIRATIONS ON RA. LEFT KNEE DRESSING C/D/I. FOOT PUMPS BILATERALLY. MANJU HOSE TO RIGHT LEG. RIGHT WRIST 20 GAUGE IV WITH NS @ 100 CC/HR. CALL LIGHT IN REACH WILL CONTINUE TO MONITOR.
[2020-06-21 12:11] VITALS: BP 124/55
[2020-06-21 12:12] VITALS: BP 124/55
--- NOTE | 2020-06-21 12:13 | Operative Report ---
DATE OF PROCEDURE: 06/21/2020 SURGEON: Jorge Stokes MD PIT WORKER POWER SHOVEL: Jer Parker, certified PA. PREOPERATIVE DIAGNOSIS: Osteoarthritis, left knee. POSTOPERATIVE DIAGNOSIS: Osteoarthritis, left knee. PROCEDURE: Left total knee arthroplasty. INDICATIONS: The patient is a 69-year-old lady who has advanced osteoarthritis of her left knee. She has failed conservative management and would like to proceed with a left total knee replacement. The risks and benefits of the procedure have been explained. She has undergone a right total knee replacement under different circumstances in the past. She is happy with the outcome. All of her questions have been answered. She states she understands and wishes to proceed. PROCEDURE IN DETAIL: The patient was brought to the operating room and placed under general anesthetic. She received prophylactic antibiotics, a regional block and tranexamic acid in the holding area. Her left lower extremity was prepped and draped in a sterile manner. A preoperative time-out was performed. The extremity was exsanguinated and a proximal tourniquet was inflated to 300 mmHg. An anterior incision with a medial parapatellar arthrotomy was performed. Soft tissue releases were performed to bring the knee up into flexion with the patella everted. The cruciate ligaments were sacrificed. A Egan and Nephmicecloud knee system were used. An extramedullary cutting guide was used to resect the proximal tibia. The tibial cut was referenced off the least affected lateral compartment. There was complete loss of articular cartilage in the medial compartment. The tibial base plate was a size 4. The central fin punch was impacted and attention was directed towards the distal femur. An intramedullary cutting guide was used to resect the distal femur in 6 degrees of valgus and rotation, referencing off a combination of landmarks including Whitesides line, the epicondylar axis, and the posterior condyles. The femoral component was a size five. The anterior and posterior cuts were made. The knee was well balanced. I elected to use an ultracongruent tibial insert. A 9 mm tibial insert provided appropriate soft tissue balance in full extension and 90 degrees of flexion. The patella was resurfaced with a 32 mm x 9 mm patellar button. The thickness was checked before and after and was around 23 mm. Patellar tracking was concentric. The trial implants were then all removed. A 100 mL premixed pericapsular MARIN injection was placed into the surrounding soft tissue. The knee was thoroughly irrigated with a shower tip pulsatile lavage. The components were cemented into place using a single mix of high viscosity Biomet cement, preloaded with antibiotics. Care was taken to remove all extravasated cement. The wound was further irrigated while the cement cured. The arthrotomy was then closed after sprinkling 500 mg of vancomycin powder into the deep wound. The knee was put through flexion and extension to ensure a secure closure of the arthrotomy. The skin was carefully closed with subcuticular Vicryl and catracho. A sterile Aquacel bandage was applied. The patient was then extubated and transported to the recovery room in stable condition. Blood loss was minimal. All needle and sponge counts were correct. Jorge Stokes MD DR/JAD /[id number]
[2020-06-21 12:14] VITALS: BP 124/55
[2020-06-21] MEDS ORDERED: LIDOCAINE 2%/ EPINEPHRINE 20ML MDV ONE (12:32)
[2020-06-21] MEDS ORDERED: ROPIVACAINE 0.5% 5 MG/ML 30 ML SDV ONE (12:32)
[2020-06-21] MEDS ORDERED: MIDAZOLAM HCL 2 MG/2 ML VIAL ONE (13:10)
[2020-06-21] MEDS ORDERED: DEXTROSE 50% SYRINGE 50 ML IV PRN (15:15)
--- NOTE | 2020-06-21 15:49 | NUR ---
Consult called for Dr. Rivas.
--- NOTE | 2020-06-21 16:10 | Consultation ---
DATE OF CONSULTATION: 06/21/2020 REASON FOR CONSULTATION: Medical management. HISTORY OF PRESENT ILLNESS: This is a 69-year-old woman, who was initially admitted to [facility] with diagnosis of advanced left knee joint osteoarthritis. Today, the patient underwent successful left total knee arthroplasty that was performed by her orthopedic surgeon namely, Dr. Jorge Stokes. The patient states her pain is controlled. REVIEW OF SYSTEMS: GENERAL: Weight is stable. No fever or chills. HEENT: No headaches, no visual changes. CARDIOVASCULAR/RESPIRATORY: No chest pain, no shortness of breath, no cough. GI: No nausea, vomiting, diarrhea, or constipation. : No UTI symptoms. NEUROMUSCULAR: The patient complains of some pain in her left knee, but states overall it is well control. ALLERGIES: 1. PENICILLIN. 2. IODINE. HOME MEDICATIONS: 1. Aspirin 81 mg daily. 2. Atorvastatin 40 mg at bedtime. 3. Calcium carbonate 600 mg daily. 4. Farxiga 10 mg daily. 5. Fenofibrate 145 mg daily. 6. Hydrochlorothiazide 25 mg daily. 7. [place] 7.5/325 one pill every 4 hours p.r.n. pain. 8. NovoLog insulin 35 units subcutaneous t.i.d. with meals. 9. Glargine insulin 100 units subcutaneous daily. 10. Levothyroxine 112 mcg daily. 11. Losartan 100 mg at bedtime. 12. Metformin 500 b.i.d. 13. Methotrexate 10 mg once a week. 14. Omeprazole 20 mg daily. 15. Prednisone 2.5 mg daily. 16. Sulfasalazine 1000 mg b.i.d. 17. Vitamin B6 25 mg daily. PAST MEDICAL HISTORY: 1. Advanced left knee osteoarthritis. 2. Rheumatoid arthritis. 3. Hyperlipidemia. 4. Hypertensive heart disease. 5. Type 2 diabetes mellitus. 6. GERD. 7. Hypothyroidism. 8. Obesity BMI 35. 9. Hypertriglyceridemia. 10. Hyperlipidemia. SURGICAL HISTORY: 1. Right total knee replacement 2016, performed by Dr. Jorge Stokes. 2. Left total knee replacement today. 3. Pulmonary emboli thrombectomy. 4. Cataract surgery. 5. Lower extremity angiography in March 2020 that confirmed [id number] peripheral artery disease. FAMILY HISTORY: Noncontributory. SOCIAL HISTORY: This woman has been single her whole life and never had children. She has adult niece is that look after her. The patient states she has home health nursing with home physical therapy. The patient states she also has providers that visit her on a regular basis. She quit smoking tobacco in 2009. She denies any alcohol use. PHYSICAL EXAMINATION: GENERAL: She is awake. She is alert. She is fully oriented. She is very pleasant and cooperative with exam. VITAL SIGNS: The patient is height 5 feet 6 inches, weight 216 pounds, BMI 35. Blood pressure is 124/54, pulse is 94, temperature 97.5, oxygen saturation 95% on room air. INTEGUMENT: Skin is warm and dry. No pallor, jaundice, diaphoresis. HEENT: Anicteric sclerae. Moist mucous membranes. NECK: Supple. CARDIOVASCULAR: Tachycardic rate, regular rhythm. LUNGS: No rales, no rhonchi or wheezes. ABDOMEN: Soft, normal bowel sounds, nontender. EXTREMITIES: Left knee is currently dressed. : The patient has an impressive swan-neck deformities of her bilateral hands consistent with advanced rheumatoid arthritis. NEUROLOGIC: Intact. No gross deficits appreciated. DIAGNOSES: 1. Status post left total knee arthroplasty. 2. Hypertensive heart disease. 3. Obesity, BMI 35. 4. Hyperlipidemia. 5. Type 2 diabetes. 6. Pulmonary emboli (requiring thrombectomy in 2017). PLAN: 1. Blood glucose control. 2. Blood pressure control. 3. May consider enoxaparin instead of high-dose aspirin for deep venous thrombosis prophylaxis since the patient does have history of pulmonary emboli. 4. Mobilize physical therapy. 5. Discontinue intravenous fluids. 6. Pain control. 7. Highly recommend the patient to use incentive spirometer 10 times every hour to prevent atelectasis. I would like to thank Dr. Stokes for this generous consult. MD BHAVEHS Alas/JAD /[id number] MTDD
[2020-06-21 16:18] VITALS: BP 122/70
[2020-06-21] MEDS: METFORMIN HCL 500 MG TAB PO SCH (16:20)
[2020-06-21] MEDS: CELECOXIB 100 MG CAP PO SCH (16:20)
[2020-06-21] MEDS: SULFASALAZINE 500 MG TAB PO SCH (16:20)
[2020-06-21] MEDS: INSULIN LISPRO 100 UNIT/1 ML 3ML VIAL SQ SCH ×2 (16:20→20:55)
--- NOTE | 2020-06-21 16:51 | NUR ---
Patient has voided since surgery.
[2020-06-21] MEDS ORDERED: ASPIRIN 325 MG TAB PO SCH (17:00)
[2020-06-21] MEDS ORDERED: RIVAROXABAN 10 MG TABLET PO SCH (17:00)
--- NOTE | 2020-06-21 19:30 | NUR ---
Bedside rounds completed with morning nurse. Pt alert and oriented to name, lying in bed HOB 45 degrees, assisted to bathroom. Ambulates with walker, left TKA dressing C/D/I . c/o mod left knee pain after ambulation, will medicate with ordered pain med. Call light within reach. Bed low and locked.
[2020-06-21 20:00] VITALS: BP 119/59
[2020-06-21] MEDS: HYDROCODONE/APAP 7.5MG-325MG 1 EA TAB PO PRN (20:50)
[2020-06-21] MEDS ORDERED: LOSARTAN POTASSIUM 100 MG TAB PO SCH (21:00)
[2020-06-21] MEDS ORDERED: ATORVASTATIN 40 MG TAB PO SCH (21:00)
[2020-06-21] MEDS ORDERED: INSULIN GLARGINE 100 UNITS/ML VIAL SQ SCH (21:00)
[2020-06-21 23:38] VITALS: BP 119/59
[2020-06-22] VITALS: BP 130/73
[2020-06-22] MEDS: HYDROCODONE/APAP 7.5MG-325MG 1 EA TAB PO PRN ×3 (02:00→09:51)
[2020-06-22 04:00] VITALS: BP 109/63
[2020-06-22 05:15] LABS: HEMATOCRIT 33.9 % (34.2-44.1); HEMOGLOBIN 10.9 g/dL (12.0-16.0)
[2020-06-22] MEDS ORDERED: LEVOTHYROXINE SODIUM 112 MCG TAB PO SCH (06:00)
--- NOTE | 2020-06-22 07:00 | NUR ---
RECEIVED PATIENT RESTING IN BED NO S/S OF DISTRESS. BED LOW, WHEELS LOCKED, SIDE RAILS X2. CALL LIGHT IN REACH WILL CONTINUE TO MONITOR PATIENT.
[2020-06-22] MEDS: INSULIN LISPRO 100 UNIT/1 ML 3ML VIAL SQ SCH (07:30)
[2020-06-22] MEDS ORDERED: PANTOPRAZOLE SOD 40 MG TABEC PO SCH (07:30)
[2020-06-22 08:19] VITALS: BP 123/65
[2020-06-22] MEDS ORDERED: XARELTO10 MG PO (08:45)
[2020-06-22] MEDS ORDERED: PREDNISONE 5 MG TAB PO SCH (09:00)
[2020-06-22] MEDS ORDERED: HYDROCHLOROTHIAZIDE 25 MG TAB PO SCH (09:00)
[2020-06-22] MEDS ORDERED: METHOTREXATE SOD 2.5 MG TAB PO SCH (09:00)
[2020-06-22] MEDS ORDERED: FOLIC ACID 1 MG TAB PO SCH (09:00)
[2020-06-22] MEDS ORDERED: FENOFIBRATE 145 MG TAB PO SCH (09:00)
[2020-06-22] MEDS: CELECOXIB 100 MG CAP PO SCH (09:21)
[2020-06-22] MEDS: SULFASALAZINE 500 MG TAB PO SCH (09:21)
[2020-06-22] MEDS: METFORMIN HCL 500 MG TAB PO SCH (09:21)
[2020-06-22 09:22] VITALS: BP 123/65
--- NOTE | 2020-06-22 09:23 | Progress Note ---
DATE: 06/22/2020 CHIEF COMPLAINT/HISTORY OF PRESENT ILLNESS: This is a 69-year-old woman, who was initially admitted to [facility] with diagnosis of advanced left knee degenerative joint disease. The patient underwent successful left total knee arthroplasty yesterday on Sunday June 21, 2020. The patient states that all night she had pain, but currently her pain is well controlled. Denies any fever, chills. Denies any shortness of breath or chest pain. Her hemoglobin today is 10.9 g/dL. REVIEW OF SYSTEMS: As per HPI. PHYSICAL EXAMINATION: GENERAL: She is awake, alert. She is fully oriented. She speaks only Bulgarian. VITAL SIGNS: Height 5 feet 6 inches, weight is 216 pounds, BMI 35, blood pressure is 124/64, pulse of 84, respiratory rate 18, temperature 99.1, oxygen saturation 97% on room air. INTEGUMENT: Skin is warm and dry. No pallor, jaundice, or diaphoresis. HEENT: Anicteric sclerae. Moist mucous membranes. NECK: Supple. CARDIOVASCULAR: Distant heart sounds. Tachycardic rate with regular rhythm. LUNGS: No rales, no rhonchi or wheezes. ABDOMEN: Obese yet benign. EXTREMITIES: Left knee is currently dressed. NEUROLOGIC: Intact. DIAGNOSIS: 1. Status post left total knee arthroplasty (Sunday June 21, 2020). 2. Hypertensive heart disease. 3. Obesity, BMI 35. 4. Hyperlipidemia. 5. Type 2 diabetes mellitus. 6. Pulmonary emboli (requiring thrombectomy in 2017). PLAN: 1. She will discharge home on Xarelto 10 mg daily for a total 2 weeks to prevent deep venous thrombosis and pulmonary emboli. 2. Blood glucose control and blood pressure control. 3. Discontinue enoxaparin. 4. Mobilize with physical therapy. 5. Pain control. 6. Highly recommend the patient to use incentive spirometer 10 times every hour to prevent atelectasis. 7. If the patient goes home, she will follow up with Dr. Stokes next week and with her primary care physician namely, Dr. Calderon within 2 weeks. I spent 30 minutes in the care of this patient. MD CAMILA AlasO/JAD /[id number] MTDDamian
[2020-06-22] MEDS ORDERED: ACETAMINOPHEN 1000 MG/100 ML IV PRN (09:30)
[2020-06-22 11:00] VITALS: BP 129/62
--- NOTE | 2020-06-22 11:05 | NUR ---
DISCHARGE INSTRUCTIONS GIVEN TO PATIENT IN [place] USING CULTURAL LINK RODDING ANODE WORKER ASHELY [id number]. PATIENT UNDERSTOOD ALL DISCHARGE INSTRUCTIONS. REMOVED PATIENTS IV CATHETER TIP INTACT AND PRESSURE DRESSING APPLIED.
--- NOTE | 2020-06-22 12:10 | NUR ---
patient discharged home in stable condition. gathered all personal belongings, discharge instructions and follow up information. left unit in wheelchair and went home via private auto.
--- NOTE | 2020-06-22 18:39 | Consultation ---
DATE OF CONSULTATION: 06/22/2020 Cardiology Consultation REASON FOR CONSULTATION: Recommendations on anticoagulation. HISTORY OF PRESENT ILLNESS: A 69-year-old clinic patient with history of hypertension, dyslipidemia, rheumatoid arthritis, diabetes mellitus type 2, morbid obesity, and remote history of pulmonary embolism in 2017, presents for left total knee arthroplasty performed by Dr. Stokes. The patient denies any chest discomfort or shortness of breath. She has no new complaints on followup today. REVIEW OF SYSTEMS: A 12 system review negative except for what was noted above. ALLERGIES: TO IODINE AND PENICILLIN. PAST MEDICAL HISTORY: As per HPI. SOCIAL HISTORY: No smoking, alcohol, or drugs. FAMILY HISTORY: Noncontributory. PHYSICAL EXAMINATION: VITAL SIGNS: Temperature 99.1, heart rate 83, blood pressure 123/65, respiratory rate 18, O2 saturation 97%. GENERAL: In no acute distress. Alert. NECK: No JVD. CHEST: Clear to auscultation. CARDIOVASCULAR: Regular rate and rhythm. Normal S1 and S2. ABDOMEN: Soft. Bowel sounds positive. EXTREMITIES: No edema. Left knee incision scar. Mild swelling. No edema to lower extremities. CARDIOVASCULAR MEDICATIONS: Reviewed. Atorvastatin 40 mg at bedtime, losartan 100 mg at bedtime, prednisone 2.5 mg daily, Xarelto 10 mg daily, hydrochlorothiazide 25 mg daily. STUDIES: Reviewed. Creatinine 0.78, sodium 140. White blood cells 12, hemoglobin 10, platelets 265. ASSESSMENT AND PLAN: A 69-year-old woman presents for left total knee arthroplasty, history of rheumatoid arthritis, hypertension, dyslipidemia, diabetes, peripheral arterial disease, obesity, and prior remote pulmonary embolism status post complete anticoagulation. RECOMMENDATIONS: Continue current cardiovascular medications for blood pressure and dyslipidemia standpoint. Discussed at length with the patient and Dr. Pop. Anticoagulation for thromboembolic risk prevention is advised. The patient has been started therefore on Xarelto for this. Encourage mobility and hydration. MD ARSENIO Mcleod/JAD /[id number]
== END 2020-06-22 12:10 | disposition home or self-care (01) ==
LOC: OR 06:10 → PACU V 09:21 → MED/SURG 11:30
PROVIDERS: ADMIT Specialist; ATTEND Specialist
DX: M17.0 Bilateral primary osteoarthritis of knee (principal); Z11.59 Encounter for screening for other viral diseases; K21.9 Gastro-esophageal reflux disease without esophagitis; E03.9 Hypothyroidism, unspecified; E66.9 Obesity, unspecified; Z68.35 Body mass index [BMI] 35.0-35.9, adult; E78.1 Pure hyperglyceridemia; Z01.812 Encounter for preprocedural laboratory examination; I11.9 Hypertensive heart disease without heart failure; M06.9 Rheumatoid arthritis, unspecified; E11.8 Type 2 diabetes mellitus with unspecified complications; Z79.4 Long term (current) use of insulin; Z86.711 Personal history of pulmonary embolism; Z79.01 Long term (current) use of anticoagulants
CPT/HCPCS: 27447; 36415 ×3; 71046; 73560; 80048; 82948 ×2; 85014; 85018; 85025; 86850; 86900; 86920; 93005; 97116 ×2; 97139; 97161; 97530; C1713; G0378 ×2; J0171; J1885; J2795; J3010; J3370 ×2; J7030; J7040; J7512; S0164; U0002; J2001; J2250

== ENCOUNTER → 2020-12-01 | Outpatient (CLI) | payer MEDICARE ==
[~2020-12-01] MED LIST changes: +XARELTO10 MG PO
== END ==
LOC: MAMMO 09:26
PROVIDERS: ATTEND Internal Medicine Endocrinology, Diabetes & Metabolism
DX: Z12.31 Encounter for screening mammogram for malignant neoplasm of breast (principal)
CPT/HCPCS: 77067

== ENCOUNTER → 2021-01-02 | Outpatient (CLI) | payer MEDICARE | LOC: US 10:09 | PROVIDERS: ATTEND Internal Medicine Endocrinology, Diabetes & Metabolism | DX: E04.1 Nontoxic single thyroid nodule (principal) | CPT/HCPCS: 76536 ==

== ENCOUNTER 2022-07-23 11:59 | Emergency (ER) | payer MEDICARE, OTHER ==
[~2022-07-23] VITALS: Ht 167.6 cm; Wt 99.8 kg
[2022-07-23] MEDS ORDERED: ACETAMINOPHEN 325 MG TAB PO ONE (13:00)
== END 2022-07-23 15:28 | disposition home or self-care (01) ==
LOC: ER 12:05
DX: S00.83XA Contusion of other part of head, initial encounter (principal); S63.592A Other specified sprain of left wrist, initial encounter; S80.02XA Contusion of left knee, initial encounter; S93.501A Unspecified sprain of right great toe, initial encounter; W01.0XXA Fall on same level from slipping, tripping and stumbling without subsequent striking against object, initial encounter; Y93.01 Activity, walking, marching and hiking; Y92.89 Other specified places as the place of occurrence of the external cause; I10 Essential (primary) hypertension; E11.9 Type 2 diabetes mellitus without complications; E78.5 Hyperlipidemia, unspecified; K21.9 Gastro-esophageal reflux disease without esophagitis
CPT/HCPCS: 70450; 71045; 72125; 99283